=== PATIENT | female | born 1960 | race Caucasian/White ===

== ENCOUNTER 2017-10-24 19:20 | Inpatient (IN) ==
[2017-10-24] MEDS ORDERED: Cefepime HCl 2,000 MG in Water for inj. (sterile) 20 ML 20 ML IVP ONE (19:49)
[2017-10-24] MEDS ORDERED: 0.9 % Sodium Chloride 1,000 ML IVC ONE ×2 (19:49→22:57)
[2017-10-24] MEDS ORDERED: Isovue-370 500 ML INFUS..BTL IV ONE (20:01)
--- NOTE | 2017-10-24 20:04 | Emergency Department Note ---
Disposition Clinical Impression: Diabetic foot ulcer Qualifiers: Diabetic foot ulcer location: toe Diabetes mellitus type: type 2 Laterality: right Non-pressure ulcer stage: unspecified non-pressure ulcer stage Qualified Code(s): E11.621 - Type 2 diabetes mellitus with foot ulcer; L97.519 - Non- pressure chronic ulcer of other part of right foot with unspecified severity Disposition: Admitted As Inpatient Referrals: NONE,PCP [Primary Care Provider] - General Adult HPI - General Chief complaint: ED Extremity Problem,Nontraumatic Stated complaint: RIGHT FOOT DIABETIC ULCER Time Seen by Provider: 10/24/17 19:27 Source: patient - History of Present Illness Pain Scale: 7 - Related Data Home Medications Medication Instructions Recorded Confirmed Bupropion HCl [Wellbutrin Xl] 300 mg PO DAILY 11/13/15 10/28/16 Citalopram [CeleXA] 20 mg PO DAILY 11/13/15 10/28/16 Empagliflozin/Linagliptin 1 tab PO DAILY 11/13/15 10/28/16 [Glyxambi 25 mg-5 mg Tablet] Gabapentin [Neurontin] 100 mg PO TID 11/13/15 10/28/16 Levothyroxine [Synthroid] 100 mcg PO DAILY 11/13/15 10/28/16 Metoprolol [Lopressor] 25 mg PO BID 11/13/15 10/28/16 glyBURIDE [GlyBURIDE] 10 mg PO BID 11/13/15 10/28/16 Cholecalciferol (D-3) [Vitamin D] 1,000 unit PO DAILY 04/29/16 10/28/16 BuPROPion XL (24 HR) [Wellbutrin 150 mg PO 2000 07/09/16 10/28/16 Xl] Metformin HCl [Glucophage] 1,000 mg PO BID 07/09/16 10/28/16 Previous Rx's Medication Instructions Recorded clonazePAM [Klonopin] 0.5 mg PO BID PRN #30 tablet 07/10/16 Oxycodone HCl/Acetaminophen 1 each PO Q6HR #28 tablet 10/28/16 [Percocet 10-325 mg Tablet] Rivaroxaban [Xarelto] 10 mg PO DAILY #21 tablet 10/28/16 Allergies Allergy/AdvReac Type Severity Reaction Status Date / Time Penicillins [PCN] Allergy Rash Verified 10/28/16 06:56 Sulfa (Sulfonamide Allergy Rash Verified 10/28/16 06:56 Antibiotics) Past Medical History - Past Medical History Medical history: Reports: diabetes, hypertension, thyroid disease Surgical history: Reports: hysterectomy, orthopedic, other, sinus surgery, other Psychiatric history: Reports: anxiety, depression - Social History Smoking Status: Never smoker Smokeless Tobacco Status: No Alcohol use: Reports: none Drug use: Reports: none Physical Exam - General General appearance: alert, in no apparent distress Course Vital Signs Temperature 99.1 F 10/24/17 19:30 Pulse Rate 100 10/24/17 19:30 Respiratory Rate 20 10/24/17 19:30 Blood Pressure 146/85 10/24/17 19:30 O2 Sat by Pulse Oximetry 96 10/24/17 19:30 Temperature 99.1 F 10/24/17 19:30 Pulse Rate 100 10/24/17 19:30 Respiratory Rate 20 10/24/17 19:30 Blood Pressure 146/85 10/24/17 19:30 O2 Sat by Pulse Oximetry 96 10/24/17 19:30 Oxygen Delivery Oxygen Delivery Room Air Attestation Statement - Attestation Attestation: I examined this patient and my medical decision-making was reviewed with the Resident Physician. I agree with the documented findings, disposition and treatment plan as described except to the extent set forth below. 57 year old female presnet to the eD with complaints of right diabetic foot uler and that she is a patient of Dr. Christiansen and since it has been changing in character and becoming more necrotic and red and she sent the pictures to Dr. Christiansen today and he reccomended to come straight to the ED and has called his partner Dr. Ornelas to inform him that she will be admitted and may need surgical intervention. We have started workup and will obtain a CT and start on broad coverage ABX with consult to podiatry and admission to medicine
[2017-10-24 20:26] LABS: Basophils % 0.4 %; Eosinophils % 1.3 %; Hemoglobin 10.4 g/dL (11.5-15.4); Immature Granulocytes % 0.9 % (0-4); Lymphocytes # 0.4 K/mcL (0.6-4.6); Lymphocytes % 17.9 %; Mean Corpuscular HGB Conc 31.5 g/dL (31.6-35.5); Mean Corpuscular Hemoglobin 30.1 pg (28.0-33.3); Mean Corpuscular Volume 95.7 fL (83.0-100.0); Mean Platelet Volume 9.8 fL (9.4-12.4); Monocytes # 0.3 K/mcL (0.0-1.3); Monocytes % 12.8 %; Neutrophils # 1.6 K/mcL (1.6-8.9); Platelet Count 182 K/mcL (140-400); Red Blood Count 3.45 M/mcL (3.82-4.97); Red Cell Distribution Width 15.6 % (11.5-14.5); Segmented Neutrophils % 66.7 %
[2017-10-24 20:51] LABS: BUN/Creatinine Ratio 14 (6-26); Blood Urea Nitrogen 9 mg/dL (6-20); Calcium 8.8 mg/dL (8.6-10.3); Carbon Dioxide 22 mEq/L (23-29); Chloride 101 mEq/L (98-107); Glucose 87 mg/dL (70-105); Magnesium 1.9 mg/dL (1.6-2.6); Osmolality,Calculated 270 (280-300); Phosphorous 3.7 mg/dL (2.7-4.5); Potassium 5.8 mEq/L (3.5-5.1); Sodium 131 mEq/L (136-145); Troponin I < 0.03 ng/mL (< 0.04); eGFR For African Americans > 60 (> 60); eGFR For Non-African Americans > 60 (> 60)
--- NOTE | 2017-10-24 21:25 | Emergency Department Note ---
Disposition Clinical Impression: Lactic acidosis, Hyperkalemia Diabetic foot ulcer Qualifiers: Diabetic foot ulcer location: toe Diabetes mellitus type: type 2 Laterality: right Non-pressure ulcer stage: unspecified non-pressure ulcer stage Qualified Code(s): E11.621 - Type 2 diabetes mellitus with foot ulcer; L97.519 - Non- pressure chronic ulcer of other part of right foot with unspecified severity Anemia Qualifiers: Anemia type: unspecified type Qualified Code(s): D64.9 - Anemia, unspecified Osteomyelitis Qualifiers: Osteomyelitis type: unspecified type Osteomyelitis location: foot Laterality: right Qualified Code(s): M86.9 - Osteomyelitis, unspecified Disposition: Admitted As Inpatient Condition: Fair Referrals: NONE,PCP [Primary Care Provider] - Forms: ED Satisfaction Letter Time of Disposition: 22:16 Extremity Problem HPI - General Chief complaint: ED Extremity Problem,Nontraumatic Stated complaint: RIGHT FOOT DIABETIC ULCER Time Seen by Provider: 10/24/17 19:27 Source: patient Mode of arrival: ambulatory Limitations: no limitations Nursing Notes Reviewed: Yes Vital Signs Reviewed: Yes - History of Present Illness HPI Narrative: Patient is a 57-year-old female who presents to [facility] ED with a chief complaint of right foot ulcer that is worsening. Patient has a history of diabetes and has prior issues with her foot ulcers. She is being seen by our podiatry clinic and followed by Dr. Christiansen. States he last saw it a few days ago and at that time, had been okay. She bumped it on something the day before so then I started looking worse over the last several days. He he had her on a 10 day course of Levaquin. However it started looking worse again and she some pictures of it to him today and he told her to come to the emergency department. Denies any nausea, vomiting, fever or chills. Admits to some chest discomfort but no difficulty breathing. States she feels that that might be secondary to her being so anxious about her foot. 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 Denies : shortness of breath, abdominal pain, fever - Related Data Home Medications Medication Instructions Recorded Confirmed Bupropion HCl [Wellbutrin Xl] 300 mg PO DAILY 11/13/15 10/28/16 Citalopram [CeleXA] 20 mg PO DAILY 11/13/15 10/28/16 Empagliflozin/Linagliptin 1 tab PO DAILY 11/13/15 10/28/16 [Glyxambi 25 mg-5 mg Tablet] Gabapentin [Neurontin] 100 mg PO TID 11/13/15 10/28/16 Levothyroxine [Synthroid] 100 mcg PO DAILY 11/13/15 10/28/16 Metoprolol [Lopressor] 25 mg PO BID 11/13/15 10/28/16 glyBURIDE [GlyBURIDE] 10 mg PO BID 11/13/15 10/28/16 Cholecalciferol (D-3) [Vitamin D] 1,000 unit PO DAILY 04/29/16 10/28/16 BuPROPion XL (24 HR) [Wellbutrin 150 mg PO 2000 07/09/16 10/28/16 Xl] Metformin HCl [Glucophage] 1,000 mg PO BID 07/09/16 10/28/16 Previous Rx's Medication Instructions Recorded clonazePAM [Klonopin] 0.5 mg PO BID PRN #30 tablet 07/10/16 Oxycodone HCl/Acetaminophen 1 each PO Q6HR #28 tablet 10/28/16 [Percocet 10-325 mg Tablet] Rivaroxaban [Xarelto] 10 mg PO DAILY #21 tablet 10/28/16 Allergies Allergy/AdvReac Type Severity Reaction Status Date / Time Penicillins [PCN] Allergy Rash Verified 10/28/16 06:56 Sulfa (Sulfonamide Allergy Rash Verified 10/28/16 06:56 Antibiotics) All systems ED: reviewed and negative except as stated. Past Medical History - Past Medical History Attestation: Yes The following information was validated with the patient. Source: patient Medical history: Reports: diabetes, hypertension, thyroid disease Surgical history: Reports: hysterectomy, orthopedic, other, sinus surgery, other Psychiatric history: Reports: anxiety, depression - Social History Smoking Status: Never smoker Smokeless Tobacco Status: No Alcohol use: Reports: none Drug use: Reports: none Physical Exam - General Limitations: no limitations General appearance: alert, in no apparent distress - Head Head exam: atraumatic, normocephalic, normal inspection - Eye Eye exam: Present: normal appearance, EOMI - ENT ENT exam: normal exam, normal oropharynx, mucous membranes moist - Neck Neck exam: Present: normal inspection, full ROM, trachea midline - Chest Chest inspection: Present: normal inspection, symmetric chest wall rise - Respiratory Respiratory exam: Present: normal lung sounds bilaterally - Cardiovascular Cardiovascular exam: Present: normal rhythm, tachycardia - Abdominal Exam Abdominal exam: Present: soft, Non-Tender. Absent: tenderness, distention, guarding, rebound, rigidity - Expanded Lower Extremity Exam Foot/toe exam: Present: swelling, erythema, other (Necrotic appearing distal right foot with surrounding erythema) - Neurological Exam Neurological exam: Present: alert, oriented X3 - Psychiatric Psychiatric exam: Present: normal affect, normal mood - Skin Skin exam: Present: warm, dry, intact, normal color Course Course Narrative: Patient seen and examined. Problem with right diabetic foot ulcer. Appears necrotic now. We will get a sepsis workup as well as CT of the foot with IV contrast. We will get blood cultures as well as start antibiotics vancomycin and cefepime. - Reevaluation(s) Reevaluation #1: Labwork shows a low white count, which patient states that she has had this chronically and has been evaluated for it in the past. Also shows some mild anemia as well as mild hyponatremia and hyperkalemia. Potassium is 5.8. No EKG changes with peaked T waves. We will give a dose of Kayexalate to help lower the potassium levels. I discussed with the automatic profile shaper operator Dr. Ornelas who came to the emergency department to evaluate the patient. States he will schedule her for surgery at 8 AM in the morning. Will admit for the necrotic foot ulcer with osteomyelitis , I discussed with the hospitalist Dr. Everett who has accepted patient for admission. Would also like clindamycin and Flagyl ordered for double anaerobic coverage. Time: 22:13 Vital Signs Temperature 99.1 F 10/24/17 19:30 Pulse Rate 100 10/24/17 19:30 Respiratory Rate 20 10/24/17 19:30 Blood Pressure 146/85 10/24/17 19:30 O2 Sat by Pulse Oximetry 96 10/24/17 19:30 Temperature 99.1 F 10/24/17 19:30 Pulse Rate 100 10/24/17 19:30 Respiratory Rate 20 10/24/17 19:30 Blood Pressure 146/85 10/24/17 19:30 O2 Sat by Pulse Oximetry 96 10/24/17 19:30 Oxygen Delivery Oxygen Delivery Room Air Extremity Problem, Nontraumati - Medical Records Medical records reviewed: Yes I reviewed the patient's medical records. - Lab Data Lab results reviewed: Yes I reviewed the patient's lab results. Result diagrams: 10/24/17 20:15 10/24/17 20:15 Lab Results 10/24/17 10/24/17 10/24/17 Range/Units 20:15 20:15 20:15 WBC 2.4 L (4.3-11.1) K/mcL RBC 3.45 L (3.82-4.97) M/mcL Hgb 10.4 L (11.5-15.4) g/dL Hct 33.0 L (35.3-44.9) % MCV 95.7 (83.0-100.0) fL MCH 30.1 (28.0-33.3) pg MCHC 31.5 L (31.6-35.5) g/dL RDW 15.6 H (11.5-14.5) % Plt Count 182 (140-400) K/mcL MPV 9.8 (9.4-12.4) fL Immature Gran % 0.9 (0-4) % Seg Neutrophils % 66.7 % Lymphocytes % 17.9 % Monocytes % 12.8 % Eosinophils % 1.3 % Basophils % 0.4 % Neutrophils # 1.6 (1.6-8.9) K/mcL Lymphocytes # 0.4 L (0.6-4.6) K/mcL Monocytes # 0.3 (0.0-1.3) K/mcL Eosinophils # 0.0 (0.0-0.6) K/mcL Basophils # 0.0 (0.0-0.2) K/mcL ESR (0-15) mm/hr Sodium 131 L (136-145) mEq/L Potassium 5.8 H (3.5-5.1) mEq/L Chloride 101 (98-107) mEq/L Carbon Dioxide 22 L (23-29) mEq/L BUN 9 (6-20) mg/dL Creatinine 0.63 (0.60-1.20) mg/dL Est GFR ( Amer) > 60 (> 60) Est GFR (Non-Af Amer) > 60 (> 60) BUN/Creatinine Ratio 14 (6-26) Glucose 87 (70-105) mg/dL Calculated Osmolality 270 L (280-300) Lactic Acid 2.9 H (0.5-2.2) mmol/L Calcium 8.8 (8.6-10.3) mg/dL Phosphorus 3.7 (2.7-4.5) mg/dL Magnesium 1.9 (1.6-2.6) mg/dL Troponin I < 0.03 (< 0.04) ng/mL 10/24/17 Range/Units 20:30 WBC (4.3-11.1) K/mcL RBC (3.82-4.97) M/mcL Hgb (11.5-15.4) g/dL Hct (35.3-44.9) % MCV (83.0-100.0) fL MCH (28.0-33.3) pg MCHC (31.6-35.5) g/dL RDW (11.5-14.5) % Plt Count (140-400) K/mcL MPV (9.4-12.4) fL Immature Gran % (0-4) % Seg Neutrophils % % Lymphocytes % % Monocytes % % Eosinophils % % Basophils % % Neutrophils # (1.6-8.9) K/mcL Lymphocytes # (0.6-4.6) K/mcL Monocytes # (0.0-1.3) K/mcL Eosinophils # (0.0-0.6) K/mcL Basophils # (0.0-0.2) K/mcL ESR >= 130 H (0-15) mm/hr Sodium (136-145) mEq/L Potassium (3.5-5.1) mEq/L Chloride (98-107) mEq/L Carbon Dioxide (23-29) mEq/L BUN (6-20) mg/dL Creatinine (0.60-1.20) mg/dL Est GFR ( Amer) (> 60) Est GFR (Non-Af Amer) (> 60) BUN/Creatinine Ratio (6-26) Glucose (70-105) mg/dL Calculated Osmolality (280-300) Lactic Acid (0.5-2.2) mmol/L Calcium (8.6-10.3) mg/dL Phosphorus (2.7-4.5) mg/dL Magnesium (1.6-2.6) mg/dL Troponin I (< 0.04) ng/mL - Radiology Data Radiology results reviewed: Yes I reviewed the patient's radiology results. Foot CT 10/24/17 20:01 IMPRESSION: Large soft tissue ulceration along the medial and plantar aspect of the foot involving the 1st digit and 1st metatarsal. Extensive soft tissue gas with sinus tract extending to the bone of the 1st digit and 1st metatarsal head as well as extending to the flexor hallucis longus tendon. Soft tissue gas noted within the bone of the distal digit great toe. Findings consistent with osteomyelitis. Although no bony destruction of the proximal phalanx 1st digit or 1st metatarsal, high concern for osteomyelitis given degree of soft tissue ulceration and penetrating gas. Small amount of complex fluid surrounds the extensor tendon 1st digit. D/ / Alannah Villagomez MD / Alannah Villagomez MD Interpreting Provider: Alannah Villagomez MD Chest X-Ray 10/24/17 21:34 IMPRESSION: Mild bibasilar atelectasis. D/ / Alannah Villagomez MD / Alannah Villagomez MD Interpreting Provider: Alannah Villagomez MD - EKG Data EKG attestation: Yes I reviewed and interpreted this EKG. EKG results narrative: EKG done at 2008 shows sinus tachycardia with a rate of [address] elevation or depression. Normal axis. No peaked T waves.
[2017-10-24] MEDS ORDERED: Clindamycin 900 MG/50 ML 900 MG/50 ML IV.SOLN IVPB ONE (21:42)
[2017-10-24] MEDS ORDERED: MetroNIDAZOLE 500 MG/100 ML 500 MG/100 ML BAG IVPB ONE (21:42)
[2017-10-24 22:01] LABS: C-Reactive Protein 182 mg/L (Less than 10)
[2017-10-24] MEDS ORDERED: Naloxone 0.4 MG/ML INJ IVP PRN (22:57)
[2017-10-24] MEDS ORDERED: D5% in Water 1,000 ML IVC PRN (23:01)
[2017-10-24] MEDS ORDERED: Dextrose Gel 15 GM/37.5 ML TUBE PO PRN ×2 (23:01)
[2017-10-24] MEDS ORDERED: *HR* Dextrose 50 % in Water (Syg) 50 ML SYRINGE IVP PRN (23:01)
--- NOTE | 2017-10-24 23:11 | Internal Med History&Physical ---
Date of Encounter: 10/24/17 Time of Encounter: 21:00 Internal Medicine - H&P: HPI Chief complaint: Right foot infection Admitted From: Home Plans for Post Hospital Care: Home History of present illness: Ms. Walker is a 57 year old female present to ER for right foot infection. Past medical history is significant for diabetes with neuropathy, hypothyroidism , panic attack on metoprolol Patient said she had a chronic right foot diabetic ulcer. The infection is getting worse since 11 days ago. Patient has seen podiatry as outpatient and was prescribed by mouth Levaquin. Patient said after and about treatment, the infection is getting better. However, after 7 days of antibiotic course, antibiotic was discontinued and the infection is getting worse again. Patient complaining of mild dizziness, nausea but no vomiting. Patient denies fever or chills. Patient denies chest pain or shortness of breath. In the emergency room, podiatry consult Dr. Ornelas saw patient and the plan for surgery of debridement tomorrow morning. Past Med Surg Social Fam HX - Past Medical History Medical history: diabetes, hypertension, thyroid disease Psychiatric history: anxiety, depression - Past Surgical History Surgical History: hysterectomy, orthopedic, other, sinus surgery, other - Social History Smoking Status: Never smoker Smokeless Tobacco Status: No Alcohol use: none Drug use: none - Family History Mother Family Member Ethnicity: Non- Living Status: Hx Family Cardiac Disorders: No Hx Family Respiratory Disorders: No Hx Family Cancer: Yes Hx Family GI Disorders: No Hx Family Endocrine Disorder: Yes Hx Family Neuromuscular Disorders: Yes Hx Family Neurologic Disorders: No Hx Family HEENT Disorders: No Hx Family Autoimmune Disorders: No Internal Medicine - H&P: Meds Bupropion HCl [Wellbutrin Xl] 300 mg PO DAILY 11/13/15 [History] Citalopram [CeleXA] 20 mg PO DAILY 11/13/15 [History] Empagliflozin/Linagliptin [Glyxambi 25 mg-5 mg Tablet] 1 tab PO DAILY 11/13/15 [ History] Gabapentin [Neurontin] 100 mg PO TID 11/13/15 [History] Levothyroxine [Synthroid] 100 mcg PO DAILY 11/13/15 [History] Metoprolol [Lopressor] 25 mg PO BID 11/13/15 [History] glyBURIDE [GlyBURIDE] 10 mg PO BID 06/15/16 [History] Cholecalciferol (D-3) [Vitamin D] 1,000 unit PO DAILY 04/29/16 [History] BuPROPion XL (24 HR) [Wellbutrin Xl] 150 mg PO 2000 07/09/16 [History] Metformin HCl [Glucophage] 1,000 mg PO BID 07/09/16 [History] clonazePAM [Klonopin] 0.5 mg PO BID PRN #30 tablet 07/10/16 [Rx] Oxycodone HCl/Acetaminophen [Percocet 10-325 mg Tablet] 1 each PO Q6HR #28 tablet 10/28/16 [Rx] Rivaroxaban [Xarelto] 10 mg PO DAILY #21 tablet 10/28/16 [Rx] 3 Allergy/AdvReac Type Severity Reaction Status Date / Time Penicillins [PCN] Allergy Rash Verified 10/28/16 06:56 Sulfa (Sulfonamide Allergy Rash Verified 10/28/16 06:56 Antibiotics) All Systems PM: A 10-system review of systems was performed and is negative for pertinent findings except as documented above in the HPI. - Constitutional Vitals: Temp Pulse Resp BP Pulse Ox 99.1 F 100 22 160/79 96 10/24/17 19:30 10/24/17 19:30 10/24/17 22:30 10/24/17 22:30 10/24/17 19:30 General appearance: Present: A&O X 3, no acute distress, answers questions appropriately - Head Head exam: Present: atraumatic, normocephalic - Eye Eye exam: Present: PERRL, conjuntiva pink, sclera anicteric Pupils: Present: PERRL - Neck Neck exam general surgery: Present: supple, trachea midline. Absent: lymphadenopathy - Respiratory Respiratory exam: Present: CTAB. Absent: accessory muscle use, rales, rhonchi, wheezes - Cardiovascular Cardiovascular exam: Present: RRR, +S1, +S2, tachycardia. Absent: diastolic murmur, gallop, rubs, systolic murmur - GI/Abdominal GI/Abdominal exam: Present: normal bowel sounds, soft, no peritoneal signs. Absent: distended, tenderness - Extremities Exam Extremities exam: Present: warm, radial pulses palpable and symmetrical. Absent : calf tenderness, cyanotic, pedal edema Additional comments: Right foot infection around right toe, with surrounding redness/swelling. - Neurological Exam Neurological exam: Present: CN II-XII intact, oriented X3, no focal deficits. Absent: pronater drift, facial droop, speech deficit - Skin Skin exam: Present: dry, intact Internal Med - H&P Results - Labs CBC & Chem 7: 10/24/17 20:15 10/24/17 20:15 - Assessment and plan (1) Diabetic foot ulcer Current Visit: Yes Status: Acute Assessment and plan: Patient has diabetic foot infection, failed outpatient treatment. CT foot has been done, shows gas and osteomyelitis. Podiatry saw patient, plan for surgery tomorrow morning. - Patient to meet sepsis criteria, IV fluid started. - Place patient on clindamycin, cefepime, and Flagyl IV - Nothing by mouth from midnight - Patient has no history of CAD, EKG unremarkable, acceptable risk for this urgent surgery. Qualifiers: Diabetic foot ulcer location: toe Diabetes mellitus type: type 2 Laterality: right Non-pressure ulcer stage: unspecified non-pressure ulcer stage Qualified Code(s): E11.621 - Type 2 diabetes mellitus with foot ulcer; L97.519 - Non-pressure chronic ulcer of other part of right foot with unspecified severity (2) Hyperkalemia Current Visit: Yes Status: Acute Assessment and plan: Mild hyperkalemia, potassium level is excepted to get down after IV fluid (3) Osteomyelitis Current Visit: Yes Status: Acute Assessment and plan: Management as above Qualifiers: Osteomyelitis type: unspecified type Osteomyelitis location: foot Laterality: right Qualified Code(s): M86.9 - Osteomyelitis, unspecified (4) Diabetes mellitus Current Visit: No Status: Chronic Assessment and plan: Place patient on sliding scale insulin coverage Qualifiers: Diabetes mellitus type: type 2 Diabetes mellitus ad terminal makeup operator insulin use: without ad terminal makeup operator use Diabetes mellitus complication status: with skin complications Diabetes mellitus complication detail: with foot ulcer Qualified Code(s): E11.621 - Type 2 diabetes mellitus with foot ulcer; L97.509 - Non-pressure chronic ulcer of other part of unspecified foot with unspecified severity (5) Hypertension Current Visit: No Status: Chronic Assessment and plan: Continue home medications Qualifiers: Hypertension type: essential hypertension Qualified Code(s): I10 - Essential (primary) hypertension (6) Hypothyroidism Current Visit: No Status: Chronic Assessment and plan: Continue home medications Qualifiers: Hypothyroidism type: acquired Qualified Code(s): E03.9 - Hypothyroidism, unspecified (7) Sepsis Current Visit: Yes Status: Acute Assessment and plan: Patient has leukocytopenia and tachycardia with foot infection. Consider sepsis - Early IV fluid resuscitation started from ER - Mild elevated lactate acid, probably due to patient takes metformin at home, will repeat lactic acid after 6 hours. - Continue antibiotic treatment as above. - Follow-up blood culture Qualifiers: Sepsis type: sepsis due to unspecified organism Qualified Code(s): A41.9 - Sepsis, unspecified organism - Time Spent With Patient Total time spent is greater than 50% in coordination of care (as documented) at patient's floor/unit and/or counseling patient: 40 minutes Greater than 35 minutes
[2017-10-24] MEDS: 0.9 % Sodium Chloride 1,000 ML IVC SCH (23:43)
[2017-10-25] MEDS: Ondansetron 4 MG/2 ML VIAL IVP PRN (00:33)
[2017-10-25 00:50] LABS: Basophils % 0.5 %; Eosinophils % 1.4 %; Hematocrit 31.6 % (35.3-44.9); Hemoglobin 9.9 g/dL (11.5-15.4); Immature Granulocytes % 0.9 % (0-4); Lymphocytes # 0.5 K/mcL (0.6-4.6); Mean Corpuscular HGB Conc 31.3 g/dL (31.6-35.5); Mean Corpuscular Hemoglobin 29.8 pg (28.0-33.3); Mean Corpuscular Volume 95.2 fL (83.0-100.0); Mean Platelet Volume 9.7 fL (9.4-12.4); Monocytes # 0.2 K/mcL (0.0-1.3); Monocytes % 9.1 %; Neutrophils # 1.5 K/mcL (1.6-8.9); Nucleated Red Blood Cells 1.4 /100 WBC (0); Platelet Count 200 K/mcL (140-400); Red Blood Count 3.32 M/mcL (3.82-4.97); Red Cell Distribution Width 15.4 % (11.5-14.5); Segmented Neutrophils % 67.1 %
[2017-10-25 00:59] LABS: INR 1.3; Prothrombin Time 14.5 Seconds (9.4-12.1)
[2017-10-25 01:28] LABS: BUN/Creatinine Ratio 12 (6-26); Blood Urea Nitrogen 8 mg/dL (6-20); Calcium 8.4 mg/dL (8.6-10.3); Carbon Dioxide 23 mEq/L (23-29); Chloride 104 mEq/L (98-107); Glucose 104 mg/dL (70-105); Magnesium 1.5 mg/dL (1.6-2.6); Osmolality,Calculated 277 (280-300); Potassium 3.3 mEq/L (3.5-5.1); Sodium 134 mEq/L (136-145); eGFR For African Americans > 60 (> 60); eGFR For Non-African Americans > 60 (> 60)
[2017-10-25] MEDS: Cefepime HCl 2,000 MG in Water for inj. (sterile) 20 ML 20 ML IVP SCH ×4 (05:53→23:16)
[2017-10-25] MEDS: MetroNIDAZOLE 500 MG/100 ML 500 MG/100 ML BAG IVPB SCH ×4 (05:54→23:17)
--- NOTE | 2017-10-25 07:18 | Anesthesia Evaluation PreOp ---
Date of Encounter: 10/25/17 Time of Encounter: 07:16 - Past History Planned Operation: I & D, Partial Amputation Right Big Toe Cardiac History: HTN, Hyperlipidemia Pulmonary History: Denies Any Significant HX BUSBOY History: Denies Any Significant HX Other Medical History: Diabetes Type II, Thyroid, Other (anxiety/depression) Anesthesia History: No Prior Anesthetic Complications, Past Anesthesia Alcohol Use: none Drug use: none Medications and Allergies Bupropion HCl [Wellbutrin Xl] 300 mg PO DAILY 11/13/15 [History] Citalopram [CeleXA] 20 mg PO DAILY 11/13/15 [History] Empagliflozin/Linagliptin [Glyxambi 25 mg-5 mg Tablet] 1 tab PO DAILY 11/13/15 [ History] Gabapentin [Neurontin] 100 mg PO TID 11/13/15 [History] Levothyroxine [Synthroid] 100 mcg PO DAILY 11/13/15 [History] Metoprolol [Lopressor] 25 mg PO BID 11/13/15 [History] glyBURIDE [GlyBURIDE] 10 mg PO BID 11/13/15 [History] Cholecalciferol (D-3) [Vitamin D] 1,000 unit PO DAILY 04/29/16 [History] BuPROPion XL (24 HR) [Wellbutrin Xl] 150 mg PO 2000 07/09/16 [History] Metformin HCl [Glucophage] 1,000 mg PO BID 07/09/16 [History] clonazePAM [Klonopin] 0.5 mg PO BID PRN #30 tablet 07/10/16 [Rx] Oxycodone HCl/Acetaminophen [Percocet 10-325 mg Tablet] 1 each PO Q6HR #28 tablet 10/28/16 [Rx] Rivaroxaban [Xarelto] 10 mg PO DAILY #21 tablet 10/28/16 [Rx] 3 Allergy/AdvReac Type Severity Reaction Status Date / Time Penicillins [PCN] Allergy Rash Verified 10/28/16 06:56 Sulfa (Sulfonamide Allergy Rash Verified 10/28/16 06:56 Antibiotics) - Meds/Allergy Pre-op Review Medications Reviewed: Yes Allergies Reviewed: Yes Beta Blockers on Current Med List: Yes If Beta Blockers taken, Date/Time (Last Dose taken): 10/24/2017 at 1500 Anesthesia Results - Labs 10/25/17 00:41 10/25/17 00:41 - Imaging EKG: report reviewed (04/29/2016 SINUS TACHYCARDIA POSSIBLE OLD INFERIOR MYOCARDIAL INFARCTION LOW QRS VOLTAGE IN PRECORDIAL LEADS) Anesthesia Exam Vital Signs/O2 Sat/Glucose, Most Recent Temp Pulse Resp BP Pulse Ox 98.3 F 93 14 123/67 94 10/25/17 06:55 10/25/17 06:55 10/25/17 06:55 10/25/17 06:55 10/25/17 06:55 Blood Glucose* 125 Height: 5'4''/1.63m Weight: 207 lbs/94 kg NPO (# of Hours): 8 Pain Scale: 0 Pain Scale Used: Numeric (1 - 10) - HEENT Pupil (Motor): EOMI Mallampati: III Teeth: Normal Oral Opening: Greater than 3 - BUSBOY LOC: Oriented BUSBOY Motor: Normal RUE, Normal LUE, Normal RLE, Normal LLE, Normal Face BUSBOY Sensory: Normal: RUE, LUE, Face, Deficit: RLE, LLE - Cardiac Rhythm: Regular Murmur: None - Pulmonary Breath Sounds: bilateral Clear Respiratory Effort: Symmetrical Anesthesia Assess/Plan ASA Score: 3 Modified Allan Scale for Level of Consciousness: Cooperative, oriented, and tranquil Anesthetic Plan: General, MAC Monitoring Plan: Standard Monitors Recovery Plan: PACU
[2017-10-25] MEDS ORDERED: Bupivacaine/Clonidine Syringe 1 EACH SYRINGE ONE (07:24)
--- NOTE | 2017-10-25 07:31 | Podiatry Consult Note ---
Date of Encounter: 10/24/17 Time of Encounter: 23:29 Assessment and Plan (1) Foot ulcer Current visit: No Status: Acute The patient was instructed that she needs debridement as soon as possible. Patient was instructed that she needs to be nothing by mouth prior to the surgery. Patient was instructed that we will start her on antibiotics immediately and then arrange preoperative tests to make sure that she is stable for the emergent surgery. Patient will also likely need additional follow-up surgeries. The patient was instructed that at this time with the open wounds in the area of the gas, and will allow some of the infection to drain but that we need to be urgent with how we will pursue and we will likely pursue surgical intervention within the next few hours. The surgery discussed was incision and drainage of the right foot with likely bone biopsy and resection of bone and amputation of necrotic portions of her foot. The patient was instructed that this will likely result in a transmetatarsal amputation. The patient was understanding and understands the risks and complications with the surgery.Patient was informed of the risks and complications of surgery. These may include but are not limited to the following; nerve damage, numbness, tingling, RSD/CRPS, loss of motor function, loss of toe, loss of limb, loss of life, ischemia, wound healing issues, infection, scarring, keloid formation, continued pain, arthritis, non-union, mal-union, prominent hardware, displaced hardware, reaction to hardware, the need to remove hardware, bruising, continued limp, the need for future surgery, over correction, under correction, chronic swelling, the need for physical therapy, stiffness of joints, ulceration , slow healing, wound dehiscence, reaction to implant, reaction to sutures. The patient was informed of the possible conservative treatments available which may include but are not limited to the following: Orthotics, bracing, non -weight bearing, physical therapy, padding, taping, steroid injections, NSAIDS, casting. The patient was given the option to seek a second opinion. It was explained that surgery is an art and not an exact science therefore results cannot be guaranteed. All the patients questions and concerns were addressed. Patient agrees to have the surgery despite the possible risks and complications. Absolutely no guarantees were given or implied. 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 History of Present Illness Chief complaint: Right foot infection HPI: Ms. Walker is a 57 year old female who relates that she has been treated outpatient with antibiotic therapy for a foot infection of the right foot. Patient relates that she notices symptoms getting worse the last few days. Patient relates that today she noticed a dark discoloration of her toe. Patient relates that she came in immediately. Patient relates that she has pain associated with that as well. Patient denies any other pedal complaints or recent injuries. Past Med Surg Social Fam HX - Past Medical History Medical history: diabetes, hypertension, thyroid disease Psychiatric history: anxiety, depression - Past Surgical History Surgical History: hysterectomy, orthopedic, other, sinus surgery, other - Social History Smoking Status: Never smoker Smokeless Tobacco Status: No Alcohol use: none Drug use: none - Family History Mother Family Member Ethnicity: Non- Living Status: Hx Family Cardiac Disorders: No Hx Family Respiratory Disorders: No Hx Family Cancer: Yes Hx Family GI Disorders: No Hx Family Endocrine Disorder: Yes Hx Family Neuromuscular Disorders: Yes Hx Family Neurologic Disorders: No Hx Family HEENT Disorders: No Hx Family Autoimmune Disorders: No Medications and Allergies Bupropion HCl [Wellbutrin Xl] 300 mg PO DAILY 11/13/15 [History] Citalopram [CeleXA] 20 mg PO DAILY 11/13/15 [History] Empagliflozin/Linagliptin [Glyxambi 25 mg-5 mg Tablet] 1 tab PO DAILY 11/13/15 [ History] Gabapentin [Neurontin] 100 mg PO TID 11/13/15 [History] Levothyroxine [Synthroid] 100 mcg PO DAILY 11/13/15 [History] Metoprolol [Lopressor] 25 mg PO BID 11/13/15 [History] glyBURIDE [GlyBURIDE] 10 mg PO BID 11/13/15 [History] Cholecalciferol (D-3) [Vitamin D] 1,000 unit PO DAILY 04/29/16 [History] BuPROPion XL (24 HR) [Wellbutrin Xl] 150 mg PO 2000 07/09/16 [History] Metformin HCl [Glucophage] 1,000 mg PO BID 07/09/16 [History] clonazePAM [Klonopin] 0.5 mg PO BID PRN #30 tablet 07/10/16 [Rx] Oxycodone HCl/Acetaminophen [Percocet 10-325 mg Tablet] 1 each PO Q6HR #28 tablet 10/28/16 [Rx] Rivaroxaban [Xarelto] 10 mg PO DAILY #21 tablet 10/28/16 [Rx] 3 Allergy/AdvReac Type Severity Reaction Status Date / Time Penicillins [PCN] Allergy Rash Verified 10/28/16 06:56 Sulfa (Sulfonamide Allergy Rash Verified 10/28/16 06:56 Antibiotics) All Systems Reviewed: The remainder of the systems were reviewed and are negative Physical Exam - Constitutional Vitals: Temp Pulse Resp BP Pulse Ox 98.3 F 93 14 123/67 94 10/25/17 06:55 10/25/17 06:55 10/25/17 06:55 10/25/17 06:55 10/25/17 06:55 Exam: The right foot which is the symptomatic foot is erythematous and has large ulcerations along the medial aspect. There is significant ischemic tissue on the right great toe extending proximally along the medial aspect of the foot. The CT scan demonstrates gas and the ischemia corresponds with the gas in the tissue. There is an open wound in the area of the gas extending along the region of the gas. Pedal pulses are palpable. Capillary fill time is sluggish to the digits 345 and decreased to digits 1 and 2 of the right foot. Sensation decreased consistent with peripheral neuropathy. Results - Labs Result Diagrams: 10/25/17 00:41 10/25/17 00:41 Labs: Abnormal lab results WBC 2.2 K/mcL (4.3-11.1) L 10/25/17 00:41 RBC 3.32 M/mcL (3.82-4.97) L 10/25/17 00:41 Hgb 9.9 g/dL (11.5-15.4) L 10/25/17 00:41 Hct 31.6 % (35.3-44.9) L 10/25/17 00:41 MCHC 31.3 g/dL (31.6-35.5) L 10/25/17 00:41 RDW 15.4 % (11.5-14.5) H 10/25/17 00:41 Neutrophils # 1.5 K/mcL (1.6-8.9) L 10/25/17 00:41 Lymphocytes # 0.5 K/mcL (0.6-4.6) L 10/25/17 00:41 Nucleated RBCs/100 WBC 1.4 /100 WBC (0) H 10/25/17 00:41 ESR >= 130 mm/hr (0-15) H 10/24/17 20:30 PT 14.5 Seconds (9.4-12.1) H 10/25/17 00:41 Sodium 134 mEq/L (136-145) L 10/25/17 00:41 Potassium 3.3 mEq/L (3.5-5.1) L D 10/25/17 00:41 POC Glucose 125 mg/dL (70-99) H 10/25/17 07:12 Calculated Osmolality 277 (280-300) L 10/25/17 00:41 Calcium 8.4 mg/dL (8.6-10.3) L 10/25/17 00:41 Magnesium 1.5 mg/dL (1.6-2.6) L 10/25/17 00:41 C-Reactive Protein 182 mg/L (Less than 10) H 10/24/17 20:15 H & H 10/25/17 Range/Units 00:41 Hgb 9.9 L (11.5-15.4) g/dL Hct 31.6 L (35.3-44.9) % All other labs normal. Consult Discharge Plan - Plan Referrals: NONE,PCP [Primary Care Provider] -
[2017-10-25] MEDS ORDERED: *HR* Midazolam HCl 2 MG/2 ML VIAL ONE (08:04)
[2017-10-25] MEDS ORDERED: Propofol 500 MG/50 ML INFUS..BTL ONE (08:05)
[2017-10-25] MEDS: Clindamycin 600 MG/50 ML 600 MG/50 ML IV.SOLN IVPB SCH ×4 (08:15→23:16)
[2017-10-25] MEDS: Insulin LISPRO 300 UNITS/3 ML VIAL SQ SCH ×4 (08:22→21:07)
[2017-10-25] MEDS: Lactobacillus 1 EACH CAP.SPRINK PO SCH (08:24)
--- NOTE | 2017-10-25 09:08 | Anesthesia Evaluation Post Op ---
Date of Encounter: 10/25/17 Time of Encounter: 09:07 - Vital Signs Vital Signs: 3 Vital Signs BP 153/87 Pulse 99 Resp 20 O2 Sat 98% - Lungs Lungs: Clear Ascult./Percussion - Airway Airway: Non-obstructed - Cardiovascular Regular Rate - Mental Status Mental Status: Alert & Oriented, Answers Appropriately - Pain Pain Scale: 0 Pain Scale used: Numeric (1 - 10) - Nausea Vomiting Nausea Vomiting: Not Present - Hydration Hydration: NPO, Has not voided - Discharge PostOp Status: Transfer Patient to floor
[2017-10-25] MEDS: 0.9 % Sodium Chloride 1,000 ML IVC SCH ×2 (09:48→17:27)
--- NOTE | 2017-10-25 11:04 | Operative Note ---
Date of procedure: 10/25/17 Pre-op diagnosis: Gas gangrene right foot Post-op diagnosis: same Procedure: Incision and drainage right foot with amputation of great toe and incision to bone cortex for osteomyelitis of the first metatarsal of the right foot. Anesthesia: MAC Surgeon: Luis Carlos Ornelas Was there an fitness assistant present: No Estimated blood loss (cc): 15 Specimen: Clearance fragment first metatarsal, great toe and distal first metatarsal, Condition: stable Disposition: PACU Procedure in Detail: The patient was administered IV antibiotics. The patient was transported to the operative room and placed on operating table. Following anesthesia the extremity was scrubbed prepped and draped in the usual aseptic fashion. A timeout was performed. The lower extremity was raised to 60 degrees for hemostasis and exsanguinated utilizing an Esmarch bandage. The pneumatic tourniquet was inflated. The leg was lowered to the table. An incision was made and deepened through subcutaneous tissue with care taken to identify and retract all vital neurovascular structures. As the incision was made it was noted that the great toe was completely necrotic. The necrotic skin was debrided and the skin which had gas was also debrided aggressively. The debridement consisted of the skin dorsally and plantarly along the great toe and first metatarsal. The skin debrided included tendon, fascia, epidermis , dermis, subcutaneous, fascia. After the large incision was made circumscribing the gas gangrene is tissue the great toe was amputated by circumferentially disarticulating the toe at the metatarsal phalangeal joint. After the toe was removed from the site the attention was directed to the first metatarsal. The first metatarsal was inspected and an incision was made to the bone cortex for osteomyelitis of the first metatarsal. Significant amounts of osteomyelitis were noted at the distal aspect of the first metatarsal and were curettaged. After significant curettage of osteomyelitis it was decided to incise the periosteum/bone cortex proximally and the entire distal first metatarsal was removed from the field and resected. Any other necrotic or nonviable tissue was also debrided. The site was irrigated with copious amounts of normal saline and packed with iodoform gauze packing. A wound VAC was not applied at this time but will be applied at a later time when there is less bleeding. The pneumatic tourniquet was deflated and a hyperemic response was noted to all digits. The patient tolerated the procedure and anesthesia well and was transported to the recovery room with vital signs stable and vascular status intact to both feet. Continue empiric antibiotics until cultures return. Packing will occur twice daily for the next 2-3 days until we reevaluate the site for possible additional washout. The patient will likely need multiple washouts and possibly a wound VAC within a few days. The patient will also likely need long-term IV antibiotics due to the severity of the infection. After consultation wound care we may consider transmetatarsal amputation depending on the viability of the wound edges. The patient will remain nonweightbearing.
[2017-10-25] MEDS: Ketorolac 30 MG/ML VIAL IVP PRN (14:19)
[2017-10-25] MEDS: *HR* Heparin 5,000 UNIT/ML VIAL SQ SCH (17:39)
[2017-10-25] MEDS: Acetaminophen 325 MG TABLET PO PRN (19:58)
--- NOTE | 2017-10-25 22:58 | Internal Med Progress Note ---
Date of Encounter: 10/25/17 Time of Encounter: 19:00 - Assessment and plan (1) Diabetic foot ulcer Current Visit: Yes Status: Acute Assessment and plan: She was taking glyburide and metformin at home. Will keep her on the Humalog sliding scale. Will keep her on diabetic diet.She underwent right foot surgery today. We are waiting for culture results. Her right great toe has been amputated. She also lost her distal portion of first metatarsal bone. Qualifiers: Diabetic foot ulcer location: toe Diabetes mellitus type: type 2 Laterality: right Non-pressure ulcer stage: unspecified non-pressure ulcer stage Qualified Code(s): E11.621 - Type 2 diabetes mellitus with foot ulcer; L97.519 - Non-pressure chronic ulcer of other part of right foot with unspecified severity (2) Osteomyelitis Current Visit: Yes Status: Acute Assessment and plan: We are waiting for culture results. See above. She gets IV fluids. She gets IV cefepime, I-V Clindamycin and I-V metronidazole. Qualifiers: Osteomyelitis type: unspecified type Osteomyelitis location: foot Laterality: right Qualified Code(s): M86.9 - Osteomyelitis, unspecified (3) T2DM (type 2 diabetes mellitus) Current Visit: Yes Status: Acute Assessment and plan: She was taking Glyburide and metformin at home. Will keep her on a diabetic diet. She will get prn Humalog. Qualifiers: Diabetes mellitus group home insulin use: without watermaster use Diabetes mellitus complication status: with circulatory complication Diabetes mellitus complication detail: with other circulatory complications Qualified Code(s): E11.59 - Type 2 diabetes mellitus with other circulatory complications (4) Acute hypokalemia Current Visit: Yes Status: Acute Assessment and plan: Will give for supplemental potassium chloride. (5) Hypomagnesemia Current Visit: Yes Status: Acute Assessment and plan: Will give her magnesium sulfate rider. Will repeat electrolytes in the morning. - Time Spent With Patient Total time spent is greater than 50% in coordination of care (as documented) at patient's floor/unit and/or counseling patient: 25 - 35 minutes - Subjective Interval history: The patient had the surgery on her right foot today. They removed her right great toe. They removed a portion of her first metatarsal bone. The remaining portion of that bone was debrided. Her pain seems to be under control. Denies chest pain. Denies difficulty breathing, coughing and wheezing. Denies abdominal pain, nausea and vomiting. Denies abdominal pain, nausea and vomiting. She makes fair amounts of urine. Denies urinary symptoms. - Constitutional Vitals: Temp Pulse Resp BP Pulse Ox 98.5 F 92 15 158/76 94 10/25/17 19:22 10/25/17 19:22 10/25/17 19:22 10/25/17 19:22 10/25/17 19:22 General appearance: Present: A&O X 3, no acute distress, answers questions appropriately - Respiratory Respiratory exam: Present: CTAB. Absent: accessory muscle use, rales, rhonchi, wheezes - Cardiovascular Cardiovascular exam: Present: RRR, +S1, +S2. Absent: diastolic murmur, gallop, rubs, systolic murmur - GI/Abdominal GI/Abdominal exam: Present: normal bowel sounds, soft, no peritoneal signs. Absent: distended, tenderness - Skin Skin exam: Present: dry, intact Additional comments: There is a surgical dressing in the area of right foot. Internal Medicine: Result - Labs CBC & Chem 7: 10/28/17 05:39 10/28/17 05:39 Labs: Short CBC 10/25/17 Range/Units 00:41 WBC 2.2 L (4.3-11.1) K/mcL Hgb 9.9 L (11.5-15.4) g/dL Hct 31.6 L (35.3-44.9) % Plt Count 200 (140-400) K/mcL Neutrophils # 1.5 L (1.6-8.9) K/mcL BMP 10/25/17 00:41 Sodium 134 L Potassium 3.3 L D Chloride 104 Carbon Dioxide 23 BUN 8 Creatinine 0.66 Glucose 104 Calcium 8.4 L - ABG Interpretation ABG results: PT/INR, D-dimer PT 14.5 Seconds (9.4-12.1) H 10/25/17 00:41 - VTE Documentation of Mechanical Device: Intermittent pneumatic compression device Consult Discharge Plan - Plan Referrals: NONE,PCP [Primary Care Provider] -
[2017-10-26] MEDS: 0.9 % Sodium Chloride 1,000 ML IVC SCH (05:26)
[2017-10-26] MEDS: *HR* Heparin 5,000 UNIT/ML VIAL SQ SCH ×2 (05:27→17:54)
[2017-10-26 05:48] LABS: Hematocrit 29.2 % (35.3-44.9); Hemoglobin 9.1 g/dL (11.5-15.4); Mean Corpuscular HGB Conc 31.2 g/dL (31.6-35.5); Mean Corpuscular Hemoglobin 29.8 pg (28.0-33.3); Mean Corpuscular Volume 95.7 fL (83.0-100.0); Mean Platelet Volume 9.4 fL (9.4-12.4); Platelet Count 208 K/mcL (140-400); Red Blood Count 3.05 M/mcL (3.82-4.97); Red Cell Distribution Width 15.4 % (11.5-14.5)
[2017-10-26 06:15] LABS: BUN/Creatinine Ratio 17 (6-26); Blood Urea Nitrogen 8 mg/dL (6-20); Calcium 8.2 mg/dL (8.6-10.3); Carbon Dioxide 25 mEq/L (23-29); Chloride 107 mEq/L (98-107); Glucose 136 mg/dL (70-105); Magnesium 2.3 mg/dL (1.6-2.6); Osmolality,Calculated 282 (280-300); Potassium 3.9 mEq/L (3.5-5.1); Sodium 136 mEq/L (136-145); eGFR For African Americans > 60 (> 60); eGFR For Non-African Americans > 60 (> 60)
[2017-10-26] MEDS: Cefepime HCl 2,000 MG in Water for inj. (sterile) 20 ML 20 ML IVP SCH ×2 (07:22→15:37)
[2017-10-26] MEDS: Lactobacillus 1 EACH CAP.SPRINK PO SCH (07:23)
[2017-10-26] MEDS: Clindamycin 600 MG/50 ML 600 MG/50 ML IV.SOLN IVPB SCH (07:24)
[2017-10-26] MEDS: Insulin LISPRO 300 UNITS/3 ML VIAL SQ SCH ×4 (07:30→21:35)
[2017-10-26] MEDS: MetroNIDAZOLE 500 MG/100 ML 500 MG/100 ML BAG IVPB SCH ×2 (08:33→15:38)
[2017-10-26] MEDS: Ondansetron 4 MG/2 ML VIAL IVP PRN ×2 (09:16→19:54)
[2017-10-26] MEDS: clonazePAM 0.5 MG TABLET PO PRN (12:41)
[2017-10-26] MEDS: BuPROPion XL (24 HR) 150 MG TABLET PO SCH ×2 (12:41→17:55)
[2017-10-26] MEDS: Gabapentin 100 MG CAPSULE PO SCH ×2 (14:14→21:54)
--- NOTE | 2017-10-26 16:44 | Internal Med Progress Note ---
Date of Encounter: 10/26/17 Time of Encounter: 11:30 - Assessment and plan (1) Diabetic foot ulcer Current Visit: Yes Status: Acute Assessment and plan: Right diabetic foot ulcer with CT showing possible osteomyelitis in first digit and first metatarsal. Podiatry on board, status post incision and drainage of right foot with amputation of great toe and insufficient to bone cortex for osteomyelitis of the first metatarsal, postoperative day 1. Follow up intraoperative cultures and pathology report. Continue broad- spectrum IV antibiotics-cefepime, Flagyl, change clindamycin to vancomycin based on previous wound cultures. Blood cultures negative. Patient will likely require long-term IV antibiotics. We will consult infectious diseases after culture results. Local wound care and postoperative care per podiatry. Qualifiers: Diabetic foot ulcer location: toe Diabetes mellitus type: type 2 Laterality: right Non-pressure ulcer stage: unspecified non-pressure ulcer stage Qualified Code(s): E11.621 - Type 2 diabetes mellitus with foot ulcer; L97.519 - Non-pressure chronic ulcer of other part of right foot with unspecified severity (2) Sepsis Current Visit: Yes Status: Acute Assessment and plan: Presented with leukopenia, tachycardia and tachypnea. Leukopenia seems to be chronic. Sepsis currently resolved. Serum lactic acid noted to be normal. Qualifiers: Sepsis type: sepsis due to unspecified organism Qualified Code(s): A41.9 - Sepsis, unspecified organism (3) Diabetes mellitus Current Visit: Yes Status: Chronic Assessment and plan: Blood sugars noted to be well controlled. Continue Accu-Chek blood glucose monitoring with sliding scale insulin. Diabetic diet. 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 use Diabetes mellitus complication status: with skin complications Diabetes mellitus complication detail: with foot ulcer Qualified Code(s): E11.621 - Type 2 diabetes mellitus with foot ulcer; L97.509 - Non-pressure chronic ulcer of other part of unspecified foot with unspecified severity (4) Hypertension Current Visit: Yes Status: Chronic Qualifiers: Hypertension type: essential hypertension Qualified Code(s): I10 - Essential (primary) hypertension (5) Hypothyroidism Current Visit: Yes Status: Chronic Qualifiers: Hypothyroidism type: unspecified Qualified Code(s): E03.9 - Hypothyroidism , unspecified (6) Osteomyelitis Current Visit: Yes Status: Acute Assessment and plan: Plan as above. Qualifiers: Osteomyelitis type: unspecified type Osteomyelitis location: foot Laterality: right Qualified Code(s): M86.9 - Osteomyelitis, unspecified (7) Anxiety and depression Current Visit: Yes Status: Chronic Assessment and plan: Resume home meds. - Time Spent With Patient Total time spent is greater than 50% in coordination of care (as documented) at patient's floor/unit and/or counseling patient: - Subjective Interval history: Reports feeling better. Request to resume home antidepressants. Reports right foot pain, controlled with oral pain medications. No fever, chills, chest pain , shortness of breath, diarrhea. - Constitutional Vitals: Temp Pulse Resp BP Pulse Ox 97.9 F 70 15 111/65 95 10/26/17 15:49 10/26/17 15:49 10/26/17 15:49 10/26/17 15:49 10/26/17 15:49 General appearance: Present: A&O X 3, no acute distress, answers questions appropriately - Respiratory Respiratory exam: Present: CTAB. Absent: accessory muscle use, rales, rhonchi, wheezes - Cardiovascular Cardiovascular exam: Present: RRR, +S1, +S2. Absent: diastolic murmur, gallop, rubs, systolic murmur - GI/Abdominal GI/Abdominal exam: Present: normal bowel sounds, soft, no peritoneal signs. Absent: distended, tenderness - Extremities Exam Extremities exam: Present: warm, radial pulses palpable and symmetrical. Absent : calf tenderness, cyanotic, pedal edema Additional comments: Right foot in surgical dressing - Neurological Exam Neurological exam: Present: CN II-XII intact, oriented X3, no focal deficits. Absent: pronater drift, facial droop, speech deficit Internal Medicine: Result - Labs CBC & Chem 7: 10/26/17 05:36 10/26/17 05:36 Labs: Short CBC 10/26/17 Range/Units 05:36 WBC 2.1 L (4.3-11.1) K/mcL Hgb 9.1 L (11.5-15.4) g/dL Hct 29.2 L (35.3-44.9) % Plt Count 208 (140-400) K/mcL BMP 10/26/17 05:36 Sodium 136 Potassium 3.9 Chloride 107 Carbon Dioxide 25 BUN 8 Creatinine 0.48 L Glucose 136 H Calcium 8.2 L - ABG Interpretation ABG results: PT/INR, D-dimer PT 14.5 Seconds (9.4-12.1) H 10/25/17 00:41 - VTE Documentation of Mechanical Device: Intermittent pneumatic compression device Consult Discharge Plan - Plan Referrals: NONE,PCP [Primary Care Provider] -
--- NOTE | 2017-10-26 17:22 | Podiatry Progress Note ---
Date of Encounter: 10/26/17 Time of Encounter: 17:00 - Assessment and Plan (1) Foot ulcer Current Visit: No Status: Acute s/p Incision and drainage right foot with amputation of great toe and incision to bone cortex for osteomyelitis of the first metatarsal of the right foot on per Dr. 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 Ornelas. Patient resting comfortably in bed. Dressing CDI. No strikethrough drainage. Patient denies any pain at this time.. States it throbs if she dangles her foot. Patient denies any fevers or chills. States she has had some nausea. States she is having a hard time dealing with the fact her foot has been cut on, does not want to look at wound. Objective - Vital Signs Vital Signs: Vital Signs Temp Pulse Resp BP Pulse Ox 10/26/17 15:49 97.9 F 70 15 111/65 95 10/26/17 10:16 98.5 F 89 14 134/75 92 10/26/17 08:56 94 10/26/17 06:59 98.3 F 89 14 148/75 94 10/26/17 04:18 99.6 F 93 15 155/84 94 10/25/17 23:27 98.7 F 97 15 116/67 93 10/25/17 19:22 98.5 F 92 15 158/76 94 Intake and Output 10/26/17 10/26/17 10/26/17 07:59 15:59 23:59 Intake Total 1390 / 1390 1690 / 1690 100 / 100 Output Total 400 / 400 500 / 500 Balance 990 / 990 1190 / 1190 100 / 100 Intake: IV Fluids 1390 / 1390 970 / 970 100 / 100 0.9 % Sodium Chloride 1,000 ML 1200 / 1200 550 / 550 @ 100 mls/hr IVC .Q10H [facility] Rx#: [id number] Maxipime 2,000 MG In Water for 40 / 40 20 / 20 inj. (sterile) 20 ML @ 300 mls/ hr IVP Q8HR [facility] Rx#:[id number] Cleocin Premix 600 MG/50 ML 600 50 / 50 50 / 50 mg In 50 ml @ 50 mls/hr IVPB Q8HR [facility] Rx#:[id number] Flagyl Premix 500 MG/100 ML 500 100 / 100 100 / 100 100 / 100 mg In 100 ml @ 100 mls/hr IVPB Q8HR [facility] Rx#:[id number] Vancocin 1,500 MG In 0.9 % 250 / 250 Sodium Chloride 250 ML @ 166.67 mls/hr IVPB Q12H [facility] Rx#: [id number] Oral 0 / 0 720 / 720 Output: Urine 400 / 400 500 / 500 Other: Meal Lunch Percent of Meal Consumed 80% Stool Size Moderate Stool Consistency soft Stool Characteristics Normal for Patient Stool Color Brown # Voids 1 # Bowel Movements 1 Weight 94.2 kg Blood Glucose* 138 162 128 Patient Weight 10/26/17 23:59 Weight 94.2 kg - Exam Exam: Podiatry General Exam: General appearance: alert awake oriented X 3. Calm and pleasant, no acute distress.. Vascular: Pedal pulses +2/4 DP/PT , No evidence of cyanosis, pallor or rubor, Edema graded at 1+/4, Skin Temperature warm, No calf pain with manual compression. capillary refill time is immediate to digits. Neurologic: Sensation intact with light touch to foot. . Postop Exam: S/P Incision and drainage of medial aspect of right foot Large open surgical area of the medial aspect of the right foot, [id number] , uneven borders noted. Open for drainage. No suture line.No odor. Mild surrounding edema and erythema. Skin edges remain healthy and viable. Mild amount of bloody drainage. No sinus tracts undermining or tunneling. No fluctuance noted. - Lab Result Diagrams: 10/28/17 05:39 10/28/17 05:39 Labs: Abnormal lab results WBC 2.1 K/mcL (4.3-11.1) L 10/26/17 05:36 RBC 3.05 M/mcL (3.82-4.97) L 10/26/17 05:36 Hgb 9.1 g/dL (11.5-15.4) L 10/26/17 05:36 Hct 29.2 % (35.3-44.9) L 10/26/17 05:36 MCHC 31.2 g/dL (31.6-35.5) L 10/26/17 05:36 RDW 15.4 % (11.5-14.5) H 10/26/17 05:36 Neutrophils # 1.5 K/mcL (1.6-8.9) L 10/25/17 00:41 Lymphocytes # 0.5 K/mcL (0.6-4.6) L 10/25/17 00:41 Nucleated RBCs/100 WBC 1.4 /100 WBC (0) H 10/25/17 00:41 ESR >= 130 mm/hr (0-15) H 10/24/17 20:30 PT 14.5 Seconds (9.4-12.1) H 10/25/17 00:41 Creatinine 0.48 mg/dL (0.60-1.20) L 10/26/17 05:36 Glucose 136 mg/dL (70-105) H 10/26/17 05:36 POC Glucose 173 mg/dL (70-99) H 10/26/17 16:36 Calcium 8.2 mg/dL (8.6-10.3) L 10/26/17 05:36 C-Reactive Protein 182 mg/L (Less than 10) H 10/24/17 20:15 - VTE Documentation of Mechanical Device: Intermittent pneumatic compression device Consult Discharge Plan - Plan Referrals: NONE,PCP [Primary Care Provider] -
[2017-10-26] MEDS: Ketorolac 30 MG/ML VIAL IVP PRN (22:16)
[2017-10-27] MEDS: MetroNIDAZOLE 500 MG/100 ML 500 MG/100 ML BAG IVPB SCH ×3 (01:24→21:33)
[2017-10-27] MEDS: Cefepime HCl 2,000 MG in Water for inj. (sterile) 20 ML 20 ML IVP SCH ×3 (01:25→21:31)
[2017-10-27] MEDS: *HR* Heparin 5,000 UNIT/ML VIAL SQ SCH ×2 (05:39→17:28)
[2017-10-27 06:26] LABS: Platelet Count 226 K/mcL (140-400); Red Cell Distribution Width 15.3 % (11.5-14.5)
[2017-10-27 06:27] LABS: Mean Corpuscular Hemoglobin 29.6 pg (28.0-33.3); Mean Corpuscular Volume 95.4 fL (83.0-100.0); Red Blood Count 3.04 M/mcL (3.82-4.97)
[2017-10-27 06:46] LABS: BUN/Creatinine Ratio 16 (6-26); Blood Urea Nitrogen 8 mg/dL (6-20); Calcium 8.2 mg/dL (8.6-10.3); Carbon Dioxide 24 mEq/L (23-29); Chloride 107 mEq/L (98-107); Glucose 136 mg/dL (70-105); Osmolality,Calculated 282 (280-300); Potassium 3.8 mEq/L (3.5-5.1); Sodium 136 mEq/L (136-145); eGFR For African Americans > 60 (> 60); eGFR For Non-African Americans > 60 (> 60)
--- NOTE | 2017-10-27 07:03 | Electrocardiograph Report ---
[address] [place], [place] [address] Test Date: 2017-10-24 Pat Name: Alannah Walker Department: 103 Room: 3A Gender: F Medical Investigator: TMR : 1960 Requested By: Yareli Song Order Number: [id number] Reading MD: Darnell Adams Measurements Intervals Penn Laird Rate: 101 P: 36 TN: 160 QRS: -1 QRSD: 89 T: 18 QT: 278 QTc: 336 Interpretive Statements SINUS TACHYCARDIA Poor R wave progression Electronically Signed On 10-27-2017 7:01:28 EDT by Darnell Adams
[2017-10-27] MEDS: Lactobacillus 1 EACH CAP.SPRINK PO SCH (09:23)
[2017-10-27] MEDS: BuPROPion XL (24 HR) 150 MG TABLET PO SCH ×2 (09:23→17:31)
[2017-10-27] MEDS: Gabapentin 100 MG CAPSULE PO SCH ×3 (09:24→21:31)
[2017-10-27] MEDS: clonazePAM 0.5 MG TABLET PO PRN (13:16)
[2017-10-27] MEDS: Insulin LISPRO 300 UNITS/3 ML VIAL SQ SCH ×4 (15:15→21:31)
--- NOTE | 2017-10-27 16:12 | Internal Med Progress Note ---
Date of Encounter: 10/27/17 Time of Encounter: 11:00 - Assessment and plan (1) Diabetic foot ulcer Current Visit: Yes Status: Acute Assessment and plan: Right diabetic foot ulcer with CT showing possible osteomyelitis in first digit and first metatarsal. Podiatry on board, status post incision and drainage of right foot with amputation of great toe and insufficient to bone cortex for osteomyelitis of the first metatarsal, postoperative day 2. Dressing change today, anticipate return to OR in 2-3 days for repeat washout and probable wound VAC placement. Follow up final intraoperative cultures and pathology report. Preliminary wound culture from October 25 grows gram-positive cocci. Continue broad-spectrum IV antibiotics-cefepime, Flagyl, vancomycin based on previous wound cultures. Blood cultures negative. Patient will likely require long-term IV antibiotics. We will consult infectious diseases after culture results. Local wound care and postoperative care per podiatry. PT/OT evaluation. family services specialist consult for discharge planning. Qualifiers: Diabetic foot ulcer location: toe Diabetes mellitus type: type 2 Laterality: right Non-pressure ulcer stage: unspecified non-pressure ulcer stage Qualified Code(s): E11.621 - Type 2 diabetes mellitus with foot ulcer; L97.519 - Non-pressure chronic ulcer of other part of right foot with unspecified severity (2) Sepsis Current Visit: Yes Status: Acute Assessment and plan: Presented with leukopenia, tachycardia and tachypnea. Secondary to infected right diabetic foot ulcer. Sepsis currently resolved. Serum lactic acid noted to be normal. Qualifiers: Sepsis type: sepsis due to unspecified organism Qualified Code(s): A41.9 - Sepsis, unspecified organism (3) Diabetes mellitus Current Visit: Yes Status: Chronic Assessment and plan: Blood sugars noted to be well controlled. Continue Accu-Chek blood glucose monitoring with sliding scale insulin. Diabetic diet. 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 insulin use: without nursing home use Diabetes mellitus complication status: with skin complications Diabetes mellitus complication detail: with foot ulcer Qualified Code(s): E11.621 - Type 2 diabetes mellitus with foot ulcer; L97.509 - Non-pressure chronic ulcer of other part of unspecified foot with unspecified severity (4) Hypertension Current Visit: Yes Status: Chronic Qualifiers: Hypertension type: essential hypertension Qualified Code(s): I10 - Essential (primary) hypertension (5) Hypothyroidism Current Visit: Yes Status: Chronic Qualifiers: Hypothyroidism type: unspecified Qualified Code(s): E03.9 - Hypothyroidism , unspecified (6) Osteomyelitis Current Visit: Yes Status: Acute Qualifiers: Osteomyelitis type: unspecified type Osteomyelitis location: foot Laterality: right Qualified Code(s): M86.9 - Osteomyelitis, unspecified (7) Anxiety and depression Current Visit: Yes Status: Chronic Assessment and plan: Resume home meds. - Time Spent With Patient Total time spent is greater than 50% in coordination of care (as documented) at patient's floor/unit and/or counseling patient: - Subjective Interval history: Denies new complaints. Improving right foot pain. No fever, chills, nausea, vomiting. - Constitutional Vitals: Temp Pulse Resp BP Pulse Ox 97.9 F 69 16 151/80 96 10/27/17 11:00 10/27/17 11:00 10/27/17 11:00 10/27/17 11:00 10/27/17 11:00 General appearance: Present: A&O X 3, no acute distress, answers questions appropriately - Respiratory Respiratory exam: Present: CTAB. Absent: accessory muscle use, rales, rhonchi, wheezes - Cardiovascular Cardiovascular exam: Present: RRR, +S1, +S2. Absent: diastolic murmur, gallop, rubs, systolic murmur - GI/Abdominal GI/Abdominal exam: Present: normal bowel sounds, soft, no peritoneal signs. Absent: distended, tenderness - Extremities Exam Extremities exam: Present: warm, radial pulses palpable and symmetrical. Absent : calf tenderness, cyanotic, pedal edema Additional comments: right foot in surgical dressing Internal Medicine: Result - Labs CBC & Chem 7: 10/27/17 05:58 10/27/17 05:58 Labs: Short CBC 10/27/17 Range/Units 05:58 WBC 1.8 L (4.3-11.1) K/mcL Hgb 9.0 L (11.5-15.4) g/dL Hct 29.0 L (35.3-44.9) % Plt Count 226 (140-400) K/mcL BMP 10/27/17 05:58 Sodium 136 Potassium 3.8 Chloride 107 Carbon Dioxide 24 BUN 8 Creatinine 0.51 L Glucose 136 H Calcium 8.2 L - ABG Interpretation ABG results: PT/INR, D-dimer PT 14.5 Seconds (9.4-12.1) H 10/25/17 00:41 - VTE Documentation of Mechanical Device: Intermittent pneumatic compression device Consult Discharge Plan - Plan Referrals: NONE,PCP [Primary Care Provider] -
--- NOTE | 2017-10-27 16:52 | Podiatry Progress Note ---
Date of Encounter: 10/27/17 Time of Encounter: 12:00 - Assessment and Plan (1) Foot ulcer Current Visit: No Status: Acute s/p Incision and drainage right foot with amputation of great toe and incision to bone cortex for osteomyelitis of the first metatarsal of the right foot on per Dr. Ornelas Dressing changed at bedside today Removed dressing, flushed wound with saline, repacked with iodoform and MARTA bandage Patient tolerated well Patient is limited weight bearing, pivot to heel only Continue IV broad spectrum antibiotic coverage at this time, intra op cultures pending Dressing changes as ordered Will plan to return to OR in 2-3 days for repeat washout and probable wound vac placement, likely Wednesday Will need SW on board for discharge planning 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 Subjective Interval history: POD #2 Incision and drainage right foot with amputation of great toe and incision to bone cortex for osteomyelitis of the first metatarsal of the right foot per Dr. Ornelas. Patient resting comfortably in bed. Dressing CDI. No strikethrough drainage. Patient denies any pain at this time.. States it throbs if she dangles her foot. Patient denies any fevers or chills. Objective - Vital Signs Vital Signs: Vital Signs Temp Pulse Resp BP Pulse Ox 10/27/17 11:00 97.9 F 69 16 151/80 96 10/27/17 07:18 97.5 F L 80 16 167/89 95 10/27/17 05:30 97.6 F 75 14 151/85 96 10/27/17 00:54 97.8 F 78 16 143/73 95 10/26/17 19:35 98.2 F 87 16 166/77 96 Intake and Output 10/27/17 10/27/17 10/27/17 07:59 15:59 23:59 Intake Total 370 / 370 Output Total 1200 / 1200 1600 / 1600 Balance -830 / -830 -1600 / -1600 Intake: IV Fluids 370 / 370 Maxipime 2,000 MG In Water for 20 / 20 inj. (sterile) 20 ML @ 300 mls/ hr IVP Q8HR [facility] Rx#:[id number] Flagyl Premix 500 MG/100 ML 500 100 / 100 mg In 100 ml @ 100 mls/hr IVPB Q8HR [facility] Rx#:[id number] Vancocin 1,500 MG In 0.9 % 250 / 250 Sodium Chloride 250 ML @ 166.67 mls/hr IVPB Q12H [facility] Rx#: [id number] Oral 0 / 0 Output: Urine 1200 / 1200 1600 / 1600 Other: Stool Size Small Stool Consistency soft Stool Color Brown # Bowel Movements 1 Blood Glucose* 135 216 - Exam Exam: Podiatry General Exam: General appearance: alert awake oriented X 3. Calm and pleasant, no acute distress.. Vascular: Pedal pulses +2/4 DP/PT , No evidence of cyanosis, pallor or rubor, Edema graded at 1+/4, Skin Temperature warm, No calf pain with manual compression. capillary refill time is immediate to digits. Neurologic: Sensation intact with light touch to foot. . Postop Exam: S/P Incision and drainage of medial aspect of right foot Large open surgical area of the medial aspect of the right foot, [id number] , uneven borders noted. Open for drainage. No suture line.No odor. Mild surrounding edema and erythema. Skin edges remain healthy and viable. Mild amount of bloody drainage. No sinus tracts undermining or tunneling. No fluctuance noted. - Lab Result Diagrams: 10/28/17 05:39 10/28/17 05:39 Labs: Abnormal lab results WBC 1.8 K/mcL (4.3-11.1) L 10/27/17 05:58 RBC 3.04 M/mcL (3.82-4.97) L 10/27/17 05:58 Hgb 9.0 g/dL (11.5-15.4) L 10/27/17 05:58 Hct 29.0 % (35.3-44.9) L 10/27/17 05:58 MCHC 31.0 g/dL (31.6-35.5) L 10/27/17 05:58 RDW 15.3 % (11.5-14.5) H 10/27/17 05:58 MPV 9.0 fL (9.4-12.4) L 10/27/17 05:58 Neutrophils # 1.5 K/mcL (1.6-8.9) L 10/25/17 00:41 Lymphocytes # 0.5 K/mcL (0.6-4.6) L 10/25/17 00:41 Nucleated RBCs/100 WBC 1.4 /100 WBC (0) H 10/25/17 00:41 ESR >= 130 mm/hr (0-15) H 10/24/17 20:30 PT 14.5 Seconds (9.4-12.1) H 10/25/17 00:41 Creatinine 0.51 mg/dL (0.60-1.20) L 10/27/17 05:58 Glucose 136 mg/dL (70-105) H 10/27/17 05:58 POC Glucose 216 mg/dL (70-99) H 10/27/17 11:35 Calcium 8.2 mg/dL (8.6-10.3) L 10/27/17 05:58 C-Reactive Protein 182 mg/L (Less than 10) H 10/24/17 20:15 Microbiology, Last 48 Hours 10/25/17 16:00 Wound Culture - Preliminary Right Foot Gram Positive Cocci - VTE Documentation of Mechanical Device: Intermittent pneumatic compression device Consult Discharge Plan - Plan Referrals: NONE,PCP [Primary Care Provider] -
[2017-10-27] MEDS: Ondansetron 4 MG/2 ML VIAL IVP PRN (22:05)
[2017-10-28] MEDS: Cefepime HCl 2,000 MG in Water for inj. (sterile) 20 ML 20 ML IVP SCH ×3 (00:03→15:16)
[2017-10-28] MEDS: MetroNIDAZOLE 500 MG/100 ML 500 MG/100 ML BAG IVPB SCH ×4 (00:03→22:48)
[2017-10-28 06:01] LABS: Hematocrit 30.2 % (35.3-44.9); Hemoglobin 9.2 g/dL (11.5-15.4); Mean Corpuscular HGB Conc 30.5 g/dL (31.6-35.5); Mean Corpuscular Hemoglobin 28.5 pg (28.0-33.3); Mean Corpuscular Volume 93.5 fL (83.0-100.0); Mean Platelet Volume 9.1 fL (9.4-12.4); Platelet Count 267 K/mcL (140-400); Red Blood Count 3.23 M/mcL (3.82-4.97); Red Cell Distribution Width 15.1 % (11.5-14.5)
[2017-10-28 06:21] LABS: BUN/Creatinine Ratio 18 (6-26); Blood Urea Nitrogen 8 mg/dL (6-20); Calcium 8.3 mg/dL (8.6-10.3); Carbon Dioxide 25 mEq/L (23-29); Chloride 106 mEq/L (98-107); Glucose 143 mg/dL (70-105); Osmolality,Calculated 285 (280-300); Potassium 3.9 mEq/L (3.5-5.1); Sodium 137 mEq/L (136-145); eGFR For African Americans > 60 (> 60); eGFR For Non-African Americans > 60 (> 60)
[2017-10-28] MEDS: *HR* Heparin 5,000 UNIT/ML VIAL SQ SCH ×2 (06:50→17:11)
[2017-10-28] MEDS: Insulin LISPRO 300 UNITS/3 ML VIAL SQ SCH ×4 (08:21→22:44)
[2017-10-28] MEDS: Gabapentin 100 MG CAPSULE PO SCH ×3 (09:05→22:35)
[2017-10-28] MEDS: Lactobacillus 1 EACH CAP.SPRINK PO SCH (09:05)
[2017-10-28] MEDS: BuPROPion XL (24 HR) 150 MG TABLET PO SCH ×2 (09:06→17:25)
[2017-10-28] MEDS: Ondansetron 4 MG/2 ML VIAL IVP PRN (09:06)
--- NOTE | 2017-10-28 14:45 | Infectious Disease Consult ---
Date of Encounter: 10/28/17 Time of Encounter: 14:43 Assessment and Plan (1) Sepsis Status: Resolved Assessment and plan: Severe sepsis Patient had 3 of 4 SIRS criteria on presentation with leukopenia, tachycardia, tachypnea Lactic acid was 2.9 on presentation, since normalized Source is right foot wound with osteomyelitis Causative organism MSSA Resolved at this time Blood cultures are negative Plan as below Qualifiers: Sepsis type: sepsis due to unspecified organism Qualified Code(s): A41.9 - Sepsis, unspecified organism (2) Osteomyelitis Status: Acute Assessment and plan: Osteomyelitis of right great toe and first metatarsal status post I&D and amputation Causative organism MSSA Source is likely diabetic foot wound Patient underwent surgical debridement on October 25 with operative evidence of osteomyelitis Intraoperative bone cultures positive for MSSA Plan for repeat surgical debridement tomorrow with possible wound VAC placement per podiatry Patient is currently being treated with vancomycin, cefepime, Flagyl DC vancomycin, DC cefepime Continue Flagyl until anaerobic cultures return Patient has reported penicillin and sulfa allergies Start Ancef 2 g every 8 hours Duration will be based on clinical picture but likely 6 weeks Continue to monitor renal function and avoid nephrotoxins Dose antibiotics based on renal function As an outpatient patient will need weekly CBC, renal function panel, ESR, CRP Qualifiers: Osteomyelitis type: unspecified type Osteomyelitis location: foot Laterality: right Qualified Code(s): M86.9 - Osteomyelitis, unspecified (3) Bicytopenia Status: Acute Assessment and plan: Patient has leukopenia and anemia Patient reports that these are chronic for her and her white blood cell count is usually [id number] Patient reports extensive workup including bone marrow biopsy in the 1980s No cause for her leukopenia was established Discussed with patient, recommend outpatient hematology workup given her persistent leukopenia with recurrent and difficult to treat infections despite good blood sugar control (4) Diabetes mellitus Status: Chronic Assessment and plan: Under good control per patient reports Most recent Hemoglobin A1c was 6.8 on 10/22/16 Further management per primary Qualifiers: Diabetes mellitus type: type 2 Diabetes mellitus assisted insulin use: without assisted use Diabetes mellitus complication status: with skin complications Diabetes mellitus complication detail: with foot ulcer Qualified Code(s): E11.621 - Type 2 diabetes mellitus with foot ulcer; L97.509 - Non-pressure chronic ulcer of other part of unspecified foot with unspecified severity (5) Anxiety and depression Status: Chronic Infectious Disease HPI - Data of Consult Patient: new to practice Consult date: 10/28/17 Requesting Physician: Lillian Hernandez MD Primary Care Provider: PCP NONE - Consult Narrative Reason for consult: Osteomyelitis History of present illness: Ms. Walker is a 57 year old female with history of type 2 diabetes, resting tachycardia, leukopenia, anxiety/depression, osteomyelitis in 2011. Patient was admitted to the hospital on October 24 for a right foot infection. We were consulted on October 28 for osteomyelitis and antibiotic management. Patient is a 57-year-old female with medical history as stated above. Patient reports approximately 2 weeks ago she had a fall at home that resulted in a wound on her right foot. Patient was seen by podiatry as an outpatient and treated with a seven-day course of Levaquin. Patient and report that her wound had improved until Wednesday morning when it became suddenly worse with increased drainage and increased size. Patient contacted the city surveyor who recommended that she come the emergency department. Patient was admitted on October 24 and was afebrile, had tachycardia of 100 on presentation, was tachypneic with a respiratory rate of 22 and and a blood pressure of 146/85. Patient was initially placed on clindamycin, cefepime, and Flagyl. Podiatry saw the patient and on October 25 patient underwent incision and drainage of the right foot with amputation of the great toe and bone excision of the first metatarsal. There were intraoperative findings consistent with osteomyelitis. Intraoperative cultures were sent and have returned positive for MSSA. Patient is currently being treated with vancomycin, cefepime, and Flagyl. Per the records is plans to return to the operating room tomorrow for a another washout with possible wound VAC placement. Patient reports that she has an extensive history of diabetic foot wounds and has had osteomyelitis past. She reports that in 2007 she tripped walking down stairs and broke her right foot read she underwent surgery at that time with hardware placement. She recovered well over the next couple years however in May 2011 she had erythema and swelling of her right foot and after investigation patient was found to have infected hardware and osteomyelitis due to MRSA. Patient reports that she completed 6 weeks of vancomycin at that time. In 2013 patient reports recurrent diabetic ulcers on both her left and right foot that were chronically nonhealing however she reports that her progressed to osteomyelitis. Patient reports that in May to September 2015 she was treated with 5 months of IV vancomycin for a left foot ulcer however she believes she is not diagnosed with osteomyelitis at this time. In July 2016 patient had another fall and injured her left foot resulting in a Lisfranc injury of her left foot. She had surgery at that time by Dr. Jacques and had hardware implanted. Patient is currently living with her daughter and son-in-law in [place], [place]. 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 In the last several years she has lived and worked in [place], [place], and [place]. CC: Lillian Hernandez MD Past Med Surg Social Fam HX - Past Medical History Medical history: diabetes, hypertension, thyroid disease Additional medical history: Osteomyelitis. MRSA. neuropathy Psychiatric history: anxiety, depression - Past Surgical History Surgical History: hysterectomy, orthopedic, other, sinus surgery, other Additional surgical history: left foot skin graft, left great toe hardware placement - Social History Smoking Status: Never smoker Smokeless Tobacco Status: No Alcohol use: none Drug use: none - Family History Mother Family Member Ethnicity: Non- Living Status: Hx Family Cardiac Disorders: No Hx Family Respiratory Disorders: No Hx Family Cancer: Yes Hx Family GI Disorders: No Hx Family Endocrine Disorder: Yes Hx Family Neuromuscular Disorders: Yes Hx Family Neurologic Disorders: No Hx Family HEENT Disorders: No Hx Family Autoimmune Disorders: No Infectious Disease-CN:Meds Bupropion HCl [Wellbutrin Xl] 300 mg PO QAM 11/13/15 [History] Citalopram [CeleXA] 20 mg PO DAILY 11/13/15 [History] Empagliflozin/Linagliptin [Glyxambi 25 mg-5 mg Tablet] 1 tab PO DAILY 11/13/15 [ History] Gabapentin [Neurontin] 100 mg PO TID 11/13/15 [History] Levothyroxine [Synthroid] 100 mcg PO DAILY 11/13/15 [History] Metoprolol [Lopressor] 25 mg PO BID 11/13/15 [History] glyBURIDE [GlyBURIDE] 10 mg PO BID 11/13/15 [History] BuPROPion XL (24 HR) [Wellbutrin Xl] 150 mg PO QPM 07/09/16 [History] Metformin HCl [Glucophage] 1,000 mg PO BID 07/09/16 [History] clonazePAM [Klonopin] 0.5 mg PO BID PRN #30 tablet 07/10/16 [Rx] 3 Allergy/AdvReac Type Severity Reaction Status Date / Time Penicillins [PCN] Allergy Rash Verified 10/28/16 06:56 Sulfa (Sulfonamide Allergy Rash Verified 10/28/16 06:56 Antibiotics) - Constitutional Constitutional: Present: fatigue. Absent: chills, fever(s) - EENT Eyes: Absent: change in vision, pain Nose, mouth and throat: Absent: mouth pain, sore throat - Cardiovascular Cardiovascular: Absent: chest pain, edema, irregular heart rhythm - Respiratory Respiratory: Absent: cough, dyspnea, chest congestion - Gastrointestinal Gastrointestinal: Present: nausea. Absent: abdominal pain, vomiting - Genitourinary Genitourinary: Absent: difficulty urinating, dysuria - Musculoskeletal Musculoskeletal: Present: numbness, tingling - Integumentary Integumentary: Present: non-healing lesions, skin ulcer. Absent: rash - Neurological Neurological: Absent: dizziness, weakness - Psychiatric Psychiatric: Present: anxiety, depression - Endocrine Endocrine: Present: fatigue. Absent: flushing - Hematologic/Lymphatic Hematologic/Lymphatic: Present: easy bruising. Absent: easy bleeding - Allergic/Immunologic Allergic/Immunologic: Absent: wheezing, GI upset with certain foods, lip swelling Exam - Constitutional Vitals: Temp Pulse Resp BP Pulse Ox 98.0 F 72 16 162/89 94 10/28/17 11:13 10/28/17 11:13 10/28/17 11:13 10/28/17 11:13 10/28/17 11:13 General appearance: no acute distress, obese - Head Head exam: Present: atraumatic, normal inspection, normocephalic - Eye Eye exam: Present: EOMI, PERRL - ENT ENT exam: Present: mucous membranes moist - Neck Neck exam: Present: full ROM - Respiratory Respiratory exam: Present: CTAB. Absent: rales, rhonchi, wheezes - Cardiovascular Cardiovascular exam: Present: RRR. Absent: diastolic murmur, irregular rhythm, systolic murmur - GI/Abdominal GI/Abdominal exam: Present: normal bowel sounds, soft. Absent: distended, tenderness - Extremities Exam Extremities exam: Absent: pedal edema Additional comments: Dressing applied to right foot. Dressing clean dry and intact - Neurological Exam Neurological exam: Present: alert, oriented X3, no focal deficits - Psychiatric Psychiatric exam: Present: anxious, depressed - Skin Skin exam: Present: dry, intact, warm Infectious Disease CN: Results - Labs CBC & Chem 7: 10/28/17 05:39 10/28/17 05:39 Cultures: Cultures 10/25/17 16:00 Anaerobic Culture - Preliminary Right Foot At this time, no anaerobic growth is present. The culture will be finalized after 5 days of incubation. 10/25/17 16:00 Wound Culture - Final Right Foot Staphylococcus aureus - VTE Documentation of Mechanical Device: Intermittent pneumatic compression device Consult Discharge Plan - Plan Referrals: NONE,PCP [Primary Care Provider] - - Attending Attestation I examined this patient and my medical decision-making was reviewed with the Resident Physician. I agree with the documented findings, disposition and treatment plan as described except to the extent set forth below. I examined this patient and my medical decision-making was reviewed with the Resident Physician. I agree with the documented findings, disposition and treatment plan as described except to the extent set forth below. This is an addendum to original report dictated by resident physician. Please refer to residents note for full detail. patient is a 57-year-old womanwith past medical history mentioned below has been having get wound diabetic foot ulcers since 2013 through 2016 and 1. apparently she received 5 months with IV vancomycin in [place]. Exact details of what was going on is not clear. Patient tells us that she had a positive culture for MRSA in 2011 where she had hardware from her foot removed. Patient states after 5 months of IV vancomycin the wound on her foot did not fully healed. in 2016 patient fell and had a surgery by Dr. Christiansen and required hardware in the left foot. 2 weeks prior to admission patient had a fall and had an injury to the right foot causing an ulcer that was infected. Patient was given 7 days worth of levofloxacin. Patient states the wound was getting back better on levofloxacin but then all of a sudden prior to admission the patient' s had worsening and significant drainage. Patient was instructed by sessions come to the emergency department to be dir Since admission patient has been afebrile, tachycardic, with leukopenia and lactic acidosis. Patients ESR and CRP where over 130 and 182 respectively. Blood cultures were obtained and are no growth 2 out of [address] foot Large soft tissue ulceration along the medial and plantar aspect of the foot involving the 1st digit and 1st metatarsal. Extensive soft tissue gas with sinus tract extending to the bone of the 1st digit and 1st metatarsal head as well as extending to the flexor hallucis longus tendon. Soft tissue gas noted within the bone of the distal digit great toe. Findings consistent with osteomyelitis. Although no bony destruction of the proximal phalanx 1st digit or 1st metatarsal, high concern for osteomyelitis given degree of soft tissue ulceration and penetrating gas. Small amount of complex fluid surrounds the extensor tendon 1st digit. Patient was taken to surgery by Dr. jacques on October 25 and underwent I&D of the right foot with amputation of the great toe with incision to bone cortex for osteomyelitis of the first metatarsal of the right foot. Intra-Op culture on October 25 grew Staphylococcus aureus that is methicillin sensitive. Patient has been on multiple antibiotics including vancomycin, cefepime, clindamycin and Flagyl. Patient apparently is allergic to penicillin and to sulfa. On further questioning patient tells me that she has been worked up extensively back in the 1980s for her leukopenia and even she had a bone marrow biopsy. No obvious pathology for her persistent leukopenia. Assessment and plan: Sepsis Osteomyelitis of the right foot status post I&D and amputation of the great toe on October 25: Intra-Op cultures positive for MSSA diabetes mellitus type 2 hypertension Hypothyroidism Anxiety and depression Recommendations: I am not sure what is causing this patients lesions and severe inflammation and what looks like tissue necrosis on pictures that her husbands showed me. I question whether the patient has an infection with typical bacteria versus fungal versus NTM versus other. I did call microbiology to see if they can do fungal and AFB cultures and smear and they said they do not have the specimen from Intra-Op anymore. I also spoke with Dr. jacques who stated that there was a lot of air bubbles intraoperatively. He finds his strength of the only thing that ever grew was MSSA. DC vancomycin DC cefepime Start cefazolin 2 g IV every 8 hours. Continue Flagyl Duration of treatment at least 6 weeks Patient will need a PICC line placement Monitor labs and for drug toxicity She will need weekly CBC, BMP, ESR and CRP while on antibiotics Patient is to follow-up with us in 2 weeks post discharge.
[2017-10-28] MEDS: Ketorolac 30 MG/ML VIAL IVP PRN (15:22)
--- NOTE | 2017-10-28 15:26 | Internal Med Progress Note ---
Date of Encounter: 10/28/17 Time of Encounter: 11:20 - Assessment and plan (1) Diabetic foot ulcer Current Visit: Yes Status: Acute Assessment and plan: Right diabetic foot ulcer with CT showing possible osteomyelitis in first digit and first metatarsal. Podiatry on board, status post incision and drainage of right foot with amputation of great toe and insufficient to bone cortex for osteomyelitis of the first metatarsal, postoperative day 3. Anticipate return to OR tomorrow for repeat washout and probable wound VAC placement. Intraoperative cultures grow MSSA; Blood cultures negative. Currently on Cefepime, Vancomycin and Flagyl; will likely require 4-6 weeks of IV antibiotics. probably use first generation cephalosporins and Flagyl due to PCN allergy; consulted ID, will f/up recommendations; F/up pathology report. Local wound care and postoperative care per podiatry. PT/OT evaluation noted, recommend [facility]. CM working on discharge planning. Qualifiers: Diabetic foot ulcer location: toe Diabetes mellitus type: type 2 Laterality: right Non-pressure ulcer stage: unspecified non-pressure ulcer stage Qualified Code(s): E11.621 - Type 2 diabetes mellitus with foot ulcer; L97.519 - Non-pressure chronic ulcer of other part of right foot with unspecified severity (2) Sepsis Current Visit: Yes Status: Resolved Assessment and plan: Presented with leukopenia, tachycardia and tachypnea. Secondary to infected right diabetic foot ulcer. Sepsis currently resolved. Serum lactic acid noted to be normal. Qualifiers: Sepsis type: sepsis due to unspecified organism Qualified Code(s): A41.9 - Sepsis, unspecified organism (3) Diabetes mellitus Current Visit: Yes Status: Chronic Assessment and plan: Blood sugars noted to be well controlled. Continue Accu-Chek blood glucose monitoring with sliding scale insulin. Diabetic diet. Qualifiers: Diabetes mellitus type: type 2 Diabetes mellitus custodial insulin use: without terminal operations manager use Diabetes mellitus complication status: with skin complications Diabetes mellitus complication detail: with foot ulcer Qualified Code(s): E11.621 - Type 2 diabetes mellitus with foot ulcer; L97.509 - Non-pressure chronic ulcer of other part of unspecified foot with unspecified severity (4) Hypertension Current Visit: Yes Status: Chronic Qualifiers: Hypertension type: essential hypertension Qualified Code(s): I10 - Essential (primary) hypertension (5) Hypothyroidism Current Visit: Yes Status: Chronic Qualifiers: Hypothyroidism type: unspecified Qualified Code(s): E03.9 - Hypothyroidism , unspecified (6) Osteomyelitis Current Visit: Yes Status: Acute Qualifiers: Osteomyelitis type: unspecified type Osteomyelitis location: foot Laterality: right Qualified Code(s): M86.9 - Osteomyelitis, unspecified (7) Anxiety and depression Current Visit: Yes Status: Chronic - Time Spent With Patient Total time spent is greater than 50% in coordination of care (as documented) at patient's floor/unit and/or counseling patient: - Subjective Interval history: Denies new complaints. Improving right foot pain. No fever, chills, nausea, vomiting. probable OR tomorrow; - Constitutional Vitals: Temp Pulse Resp BP Pulse Ox 98.0 F 72 16 162/89 94 10/28/17 11:13 10/28/17 11:13 10/28/17 11:13 10/28/17 11:13 10/28/17 11:13 General appearance: Present: A&O X 3, no acute distress, answers questions appropriately - Respiratory Respiratory exam: Present: CTAB. Absent: accessory muscle use, rales, rhonchi, wheezes - Cardiovascular Cardiovascular exam: Present: RRR, +S1, +S2. Absent: diastolic murmur, gallop, rubs, systolic murmur - GI/Abdominal GI/Abdominal exam: Present: normal bowel sounds, soft, no peritoneal signs. Absent: distended, tenderness - Extremities Exam Extremities exam: Present: warm, radial pulses palpable and symmetrical. Absent : calf tenderness, cyanotic, pedal edema Additional comments: left foot in surgical dressing - Neurological Exam Neurological exam: Present: CN II-XII intact, oriented X3, no focal deficits. Absent: pronater drift, facial droop, speech deficit Internal Medicine: Result - Labs CBC & Chem 7: 10/28/17 05:39 10/28/17 05:39 Labs: Short CBC 10/28/17 Range/Units 05:39 WBC 2.3 L (4.3-11.1) K/mcL Hgb 9.2 L (11.5-15.4) g/dL Hct 30.2 L (35.3-44.9) % Plt Count 267 (140-400) K/mcL BMP 10/28/17 05:39 Sodium 137 Potassium 3.9 Chloride 106 Carbon Dioxide 25 BUN 8 Creatinine 0.45 L Glucose 143 H Calcium 8.3 L - ABG Interpretation ABG results: PT/INR, D-dimer PT 14.5 Seconds (9.4-12.1) H 10/25/17 00:41 - VTE Documentation of Mechanical Device: Intermittent pneumatic compression device Consult Discharge Plan - Plan Referrals: NONE,PCP [Primary Care Provider] -
[2017-10-28] MEDS ORDERED: ceFAZolin 2,000 MG in D5% in Water 100 ML IVPB SCH (16:00)
[2017-10-28] MEDS: clonazePAM 0.5 MG TABLET PO PRN (17:39)
[2017-10-28] MEDS: CeFAZolin Pre 2,000 MG/100 ML 2,000 MG/100 ML BAG IVPB SCH (17:40)
--- NOTE | 2017-10-28 21:23 | Anesthesia Evaluation PreOp ---
Date of Encounter: 10/28/17 Time of Encounter: 18:35 - Past History Planned Operation: Rt Foot I and D Cardiac History: HTN, Hyperlipidemia Pulmonary History: Denies Any Significant HX BONE CHAR OPERATOR History: Denies Any Significant HX Other Medical History: Diabetes Type II, Thyroid, Other (Obese, Anxiety, Depression) Anesthesia History: No Prior Anesthetic Complications : No Alcohol Use: none Drug use: none Medications and Allergies Bupropion HCl [Wellbutrin Xl] 300 mg PO QAM 11/13/15 [History] Citalopram [CeleXA] 20 mg PO DAILY 11/13/15 [History] Empagliflozin/Linagliptin [Glyxambi 25 mg-5 mg Tablet] 1 tab PO DAILY 11/13/15 [ History] Gabapentin [Neurontin] 100 mg PO TID 11/13/15 [History] Levothyroxine [Synthroid] 100 mcg PO DAILY 11/13/15 [History] Metoprolol [Lopressor] 25 mg PO BID 11/13/15 [History] glyBURIDE [GlyBURIDE] 10 mg PO BID 11/13/15 [History] BuPROPion XL (24 HR) [Wellbutrin Xl] 150 mg PO QPM 07/09/16 [History] Metformin HCl [Glucophage] 1,000 mg PO BID 07/09/16 [History] clonazePAM [Klonopin] 0.5 mg PO BID PRN #30 tablet 07/10/16 [Rx] 3 Allergy/AdvReac Type Severity Reaction Status Date / Time Penicillins [PCN] Allergy Rash Verified 10/28/16 06:56 Sulfa (Sulfonamide Allergy Rash Verified 10/28/16 06:56 Antibiotics) - Meds/Allergy Pre-op Review Medications Reviewed: Yes Allergies Reviewed: Yes Beta Blockers on Current Med List: No Anesthesia Results - Labs 10/28/17 05:39 10/28/17 05:39 Laboratory Tests 10/28/17 10/28/17 05:39 05:39 Hgb 9.2 L Hct 30.2 L Plt Count 267 Sodium 137 Potassium 3.9 BUN 8 Creatinine 0.45 L - Imaging EKG: report reviewed (Sinus Tach poor R wave progression) Anesthesia Exam Vital Signs/O2 Sat/Glucose, Most Current Temp Pulse Resp BP Pulse Ox 10/28/17 21:14 97.9 F 73 14 175/93 96 Height: 5'4 Weight: 207 lbs NPO (# of Hours): MN Pain Scale: 0 - HEENT Pupil (Motor): Pupils equal, EOMI Mallampati: II Teeth: Normal Oral Opening: Greater than 3 - BONE CHAR OPERATOR LOC: Oriented BONE CHAR OPERATOR Motor: Normal RUE, Normal LUE, Normal RLE, Normal LLE, Normal Face BONE CHAR OPERATOR Sensory: Normal: RUE, LUE, LLE, Face, Deficit: RLE (neuropathy) - Cardiac Rhythm: Regular Murmur: None JVD: No Carotid Bruit: No - Pulmonary Breath Sounds: bilateral Clear Respiratory Effort: Symmetrical Anesthesia Assess/Plan ASA Score: 3 (HTN DM Obese) Modified Sor[place]o Scale for Level of Consciousness: Cooperative, oriented, and tranquil Anesthetic Plan: MAC Monitoring Plan: Standard Monitors Recovery Plan: Other (Discussed MAC, possible GA, agrees to proceed)
[2017-10-29] MEDS: CeFAZolin Pre 2,000 MG/100 ML 2,000 MG/100 ML BAG IVPB SCH ×3 (01:34→15:33)
[2017-10-29] MEDS: MetroNIDAZOLE 500 MG/100 ML 500 MG/100 ML BAG IVPB SCH ×3 (05:38→22:03)
[2017-10-29] MEDS: *HR* Heparin 5,000 UNIT/ML VIAL SQ SCH ×2 (05:40→16:37)
[2017-10-29] MEDS ORDERED: Ondansetron 4 MG/2 ML VIAL ONE (07:34)
[2017-10-29] MEDS ORDERED: Dexamethasone 4 MG/ML VIAL ONE (07:34)
[2017-10-29] MEDS ORDERED: Lidocaine -MPF 2% 2 ML VIAL ONE (07:34)
[2017-10-29] MEDS ORDERED: Propofol 500 MG/50 ML INFUS..BTL ONE (07:35)
[2017-10-29] MEDS ORDERED: Aminoglycoside Consult 1 EACH MC ONE (07:48)
[2017-10-29] MEDS: Insulin LISPRO 300 UNITS/3 ML VIAL SQ SCH ×4 (08:18→21:54)
[2017-10-29] MEDS ORDERED: *HR* Midazolam HCl 2 MG/2 ML VIAL ONE (08:45)
[2017-10-29] MEDS ORDERED: *HR* FentaNYL (PF) 100 MCG/2 ML VIAL ONE (08:45)
[2017-10-29] MEDS ORDERED: Bupivacaine/Clonidine Syringe 1 EACH SYRINGE ONE (09:45)
--- NOTE | 2017-10-29 10:09 | Infectious Disease Progress No ---
Date of Encounter: 10/29/17 Time of Encounter: 10:06 - Assessment and Plan (1) Sepsis Current Visit: Yes Status: Resolved Severe sepsis Patient had 3 of 4 SIRS criteria on presentation with leukopenia, tachycardia, tachypnea Lactic acid was 2.9 on presentation, since normalized Source is right foot wound with osteomyelitis Causative organism MSSA Resolved at this time Blood cultures are negative Plan as below Qualifiers: Sepsis type: methicillin susceptible Staphylococcus aureus Qualified Code(s ): A41.01 - Sepsis due to Methicillin susceptible Staphylococcus aureus (2) Osteomyelitis Current Visit: Yes Status: Acute Osteomyelitis of right great toe and first metatarsal status post I&D and amputation Causative organism MSSA Source is likely diabetic foot wound Patient underwent surgical debridement on October 25 with operative evidence of osteomyelitis Intraoperative bone cultures positive for MSSA Plan for repeat surgical debridement this morning with possible wound VAC placement per podiatry Patient is currently being treated with Cefazolin 2 g every 8h, Flagyl 500 mg every 8h Continue Flagyl until anaerobic cultures return Patient has reported penicillin and sulfa allergies Given patient's history of recurrent nonhealing infections, I spoke with Dr. jacques and he will obtain intraoperative cultures today that will be sent for [employer] looking for atypical mycobacterium and fungal cultures Duration will be based on clinical picture but likely 6 weeks Consult vascular access team Continue to monitor renal function and avoid nephrotoxins Dose antibiotics based on renal function As an outpatient patient will need weekly CBC, renal function panel, ESR, CRP Follow-up with infectious disease as an outpatient in 2 weeks after discharge Qualifiers: Osteomyelitis type: unspecified type Osteomyelitis location: foot Laterality: right Qualified Code(s): M86.9 - Osteomyelitis, unspecified (3) Bicytopenia Current Visit: Yes Status: Acute Patient has leukopenia and anemia Patient reports that these are chronic for her and her white blood cell count is usually [id number], CBC was not checked this morning Patient reports extensive workup including bone marrow biopsy in the 1980s No cause for her leukopenia was established Discussed with patient, recommend outpatient hematology workup given her persistent leukopenia with recurrent and difficult to treat infections despite good blood sugar control (4) Diabetes mellitus Current Visit: Yes Status: Chronic Under good control per patient reports Most recent Hemoglobin A1c was 6.8 on 10/22/16 Further management per primary Qualifiers: Diabetes mellitus type: type 2 Diabetes mellitus senior living insulin use: without development disability specialist use Diabetes mellitus complication status: with skin complications Diabetes mellitus complication detail: with foot ulcer Qualified Code(s): E11.621 - Type 2 diabetes mellitus with foot ulcer; L97.509 - Non-pressure chronic ulcer of other part of unspecified foot with unspecified severity (5) Anxiety and depression Current Visit: Yes Status: Chronic - Subjective Interval history: Patient seen and examined at bedside. Patient states that she feels pretty good today. She has no complaints at this time. She denies pain, fever, chills , shortness of breath, nausea, vomiting, diarrhea. Infect Dis PN-Objective Data - Labs CBC & Chem 7: 10/28/17 05:39 10/28/17 05:39 Labs: Laboratory Results - last 24 hr 10/28/17 10/28/17 10/28/17 11:17 15:42 20:46 POC Glucose 200 H 150 H 208 H Cultures: Cultures 10/25/17 16:00 Anaerobic Culture - Preliminary Right Foot At this time, no anaerobic growth is present. The culture will be finalized after 5 days of incubation. 10/25/17 16:00 Wound Culture - Final Right Foot Staphylococcus aureus Exam - Constitutional Vitals: Temp Pulse Resp BP Pulse Ox 98.4 F 66 14 125/76 96 10/29/17 07:19 10/29/17 07:19 10/29/17 07:19 10/29/17 07:19 10/29/17 07:19 - Respiratory Respiratory exam: Present: CTAB. Absent: rales, rhonchi, wheezes - Cardiovascular Cardiovascular exam: Present: RRR. Absent: diastolic murmur, systolic murmur - GI/Abdominal GI/Abdominal exam: Present: normal bowel sounds, soft. Absent: distended, tenderness - Extremities Exam Additional comments: Dressing applied to right lower extremity, clean dry and intact - Neurological Exam Neurological exam: Present: alert, oriented X3, no focal deficits - VTE Documentation of Mechanical Device: Intermittent pneumatic compression device Consult Discharge Plan - Plan Referrals: NONE,PCP [Primary Care Provider] - - Attending Attestation I examined this patient and my medical decision-making was reviewed with the Resident Physician. I agree with the documented findings, disposition and treatment plan as described except to the extent set forth below. spoke with [facility], wanting to find out if there is fungal Ribosomal sequencing and NTM pcr that we can send specimen for. awaiting phonecall from their pathologist
[2017-10-29] MEDS: BuPROPion XL (24 HR) 150 MG TABLET PO SCH ×2 (11:55→16:38)
[2017-10-29] MEDS: Lactobacillus 1 EACH CAP.SPRINK PO SCH (11:56)
[2017-10-29] MEDS: Gabapentin 100 MG CAPSULE PO SCH ×3 (11:56→22:00)
[2017-10-29] MEDS: clonazePAM 0.5 MG TABLET PO PRN (12:15)
[2017-10-29] MEDS ORDERED: Ketorolac 30 MG/ML VIAL IVP PRN (13:11)
--- NOTE | 2017-10-29 16:03 | Internal Med Progress Note ---
Date of Encounter: 10/29/17 Time of Encounter: 13:00 - Assessment and plan (1) Diabetic foot ulcer Current Visit: Yes Status: Acute Assessment and plan: Right diabetic foot ulcer with CT showing possible osteomyelitis in first digit and first metatarsal. Podiatry on board, status post incision and drainage of right foot with amputation of great toe and insufficient to bone cortex for osteomyelitis of the first metatarsal, postoperative day 4. Repeat debridement and partial bone resection today; plan for wound vac placement in am; Intraoperative cultures grow MSSA; Blood cultures negative. On Ancef and Flagyl per ID recommendations; will likely require 4-6 weeks of IV antibiotics. F/up pathology report. Local wound care and postoperative care per podiatry. PT/OT evaluation noted, recommend [facility]. CM working on discharge planning. Qualifiers: Diabetic foot ulcer location: toe Diabetes mellitus type: type 2 Laterality: right Non-pressure ulcer stage: unspecified non-pressure ulcer stage Qualified Code(s): E11.621 - Type 2 diabetes mellitus with foot ulcer; L97.519 - Non-pressure chronic ulcer of other part of right foot with unspecified severity (2) Sepsis Current Visit: Yes Status: Resolved Qualifiers: Sepsis type: methicillin susceptible Staphylococcus aureus Qualified Code(s ): A41.01 - Sepsis due to Methicillin susceptible Staphylococcus aureus (3) Diabetes mellitus Current Visit: Yes Status: Chronic Assessment and plan: Blood sugars noted to be well controlled. Continue Accu-Chek blood glucose monitoring with sliding scale insulin. Diabetic diet. Qualifiers: Diabetes mellitus type: type 2 Diabetes mellitus usp insulin use: without computer terminal operator use Diabetes mellitus complication status: with skin complications Diabetes mellitus complication detail: with foot ulcer Qualified Code(s): E11.621 - Type 2 diabetes mellitus with foot ulcer; L97.509 - Non-pressure chronic ulcer of other part of unspecified foot with unspecified severity (4) Hypertension Current Visit: Yes Status: Chronic Assessment and plan: BP noted to be uncontrolled today; will increase Metoprolol and is PRN IV Hydralazine for appropriate BP control; Qualifiers: Hypertension type: essential hypertension Qualified Code(s): I10 - Essential (primary) hypertension (5) Hypothyroidism Current Visit: Yes Status: Chronic Qualifiers: Hypothyroidism type: unspecified Qualified Code(s): E03.9 - Hypothyroidism , unspecified (6) Osteomyelitis Current Visit: Yes Status: Acute Qualifiers: Osteomyelitis type: unspecified type Osteomyelitis location: foot Laterality: right Qualified Code(s): M86.9 - Osteomyelitis, unspecified (7) Anxiety and depression Current Visit: Yes Status: Chronic - Time Spent With Patient Total time spent is greater than 50% in coordination of care (as documented) at patient's floor/unit and/or counseling patient: - Subjective Interval history: Denies new complaints. Improving right foot pain. No fever, chills, nausea, vomiting. Had debridement and partial bone resection in the OR today; BP high; - Constitutional Vitals: Temp Pulse Resp BP Pulse Ox 97.9 F 66 16 147/85 96 10/29/17 15:09 10/29/17 15:09 10/29/17 15:09 10/29/17 15:10/29/17 15:09 General appearance: Present: A&O X 3, answers questions appropriately - Respiratory Respiratory exam: Present: CTAB. Absent: accessory muscle use, rales, rhonchi, wheezes - Cardiovascular Cardiovascular exam: Present: RRR, +S1, +S2. Absent: diastolic murmur, gallop, rubs, systolic murmur - GI/Abdominal GI/Abdominal exam: Present: normal bowel sounds, soft, no peritoneal signs. Absent: distended, tenderness - Extremities Exam Extremities exam: Present: warm, radial pulses palpable and symmetrical. Absent : calf tenderness, cyanotic, pedal edema Additional comments: right foot in surgical dressing; Internal Medicine: Result - Labs CBC & Chem 7: 10/28/17 05:39 10/28/17 05:39 - ABG Interpretation ABG results: PT/INR, D-dimer PT 14.5 Seconds (9.4-12.1) H 10/25/17 00:41 - VTE Documentation of Mechanical Device: Intermittent pneumatic compression device Consult Discharge Plan - Plan Referrals: NONE,PCP [Primary Care Provider] -
--- NOTE | 2017-10-29 17:27 | Operative Note ---
Date of procedure: 10/29/17 Pre-op diagnosis: Right foot infection Post-op diagnosis: same Procedure: Irrigation and debridement of wound, right foot. Incision to bone cortex for osteomyelitis, right foot. Complications: None Anesthesia: MANGO Surgeon: Luis Carlos Ornelas Was there an office assistant receptionist present: No Estimated blood loss (cc): 15 Specimen: Bone biopsy first metatarsal, culture, right foot Condition: stable Disposition: floor Procedure in Detail: The patient was administered IV antibiotics. The patient was transported to the operative room and placed on operating table. Following anesthesia the extremity was scrubbed prepped and draped in the usual aseptic fashion. A timeout was performed. The wound site was inspected and there was very minimal necrotic tissue and little to no purulence. The tissue debrided consisted of dermis, epidermis, subcutaneous, fascia, bone. The wound size was large and irregular but measured approximately 8 cm in diameter. A small amount of prominent bone near the base of the first metatarsal was inspected and an incision was made to the bone cortex through the periosteum and a small amount of bone was curetted and also sent to pathology. Cultures were obtained as well. Pulse irrigation was performed with significant amounts of normal saline. Due to a mild amount of macerated skin the decision was made to avoid placing the wound VAC until tomorrow. Some small retention sutures were used to partially close the site and keep the tissue from ruperto. The site was packed open and dressed with a dry sterile dressing. The patient tolerated the procedure and anesthesia well and was transported to the recovery room with vital signs stable and vascular status intact to both feet. The patient will remain nonweightbearing.
[2017-10-30] MEDS: CeFAZolin Pre 2,000 MG/100 ML 2,000 MG/100 ML BAG IVPB SCH ×3 (00:15→16:50)
[2017-10-30] MEDS: MetroNIDAZOLE 500 MG/100 ML 500 MG/100 ML BAG IVPB SCH ×3 (07:16→21:40)
[2017-10-30] MEDS: *HR* Heparin 5,000 UNIT/ML VIAL SQ SCH ×2 (07:16→16:48)
[2017-10-30] MEDS: Acetaminophen 325 MG TABLET PO PRN (08:20)
[2017-10-30] MEDS: Ondansetron 4 MG/2 ML VIAL IVP PRN (08:20)
[2017-10-30] MEDS: Gabapentin 100 MG CAPSULE PO SCH ×3 (08:20→21:36)
[2017-10-30] MEDS: BuPROPion XL (24 HR) 150 MG TABLET PO SCH ×2 (08:20→16:48)
[2017-10-30] MEDS: Lactobacillus 1 EACH CAP.SPRINK PO SCH (08:20)
[2017-10-30] MEDS: Insulin LISPRO 300 UNITS/3 ML VIAL SQ SCH ×4 (08:21→21:32)
--- NOTE | 2017-10-30 17:06 | Internal Med Progress Note ---
Date of Encounter: 10/30/17 Time of Encounter: 13:40 - Assessment and plan (1) Diabetic foot ulcer Current Visit: Yes Status: Acute Assessment and plan: Right diabetic foot ulcer with CT showing possible osteomyelitis in first digit and first metatarsal. Podiatry on board, status post incision and drainage of right foot with amputation of great toe and insufficient to bone cortex for osteomyelitis of the first metatarsal, postoperative day 5. Repeat debridement and partial bone resection POD-1; plan for wound vac placement pending; Intraoperative cultures grow MSSA; Blood cultures negative. On Ancef and Flagyl per ID recommendations; will likely require 4-6 weeks of IV antibiotics. F/up pathology report. Local wound care and postoperative care per podiatry. PT/OT evaluation noted, recommend [facility]. CM working on discharge planning. Qualifiers: Diabetic foot ulcer location: toe Diabetes mellitus type: type 2 Laterality: right Non-pressure ulcer stage: unspecified non-pressure ulcer stage Qualified Code(s): E11.621 - Type 2 diabetes mellitus with foot ulcer; L97.519 - Non-pressure chronic ulcer of other part of right foot with unspecified severity (2) Sepsis Current Visit: Yes Status: Resolved Qualifiers: Sepsis type: methicillin susceptible Staphylococcus aureus Qualified Code(s ): A41.01 - Sepsis due to Methicillin susceptible Staphylococcus aureus (3) Diabetes mellitus Current Visit: Yes Status: Chronic Assessment and plan: Blood sugars noted to be well controlled. Continue Accu-Chek blood glucose monitoring with sliding scale insulin. Diabetic diet. Qualifiers: Diabetes mellitus type: type 2 Diabetes mellitus halfway insulin use: without ferry terminal agent use Diabetes mellitus complication status: with skin complications Diabetes mellitus complication detail: with foot ulcer Qualified Code(s): E11.621 - Type 2 diabetes mellitus with foot ulcer; L97.509 - Non-pressure chronic ulcer of other part of unspecified foot with unspecified severity (4) Hypertension Current Visit: Yes Status: Chronic Assessment and plan: BP continues to be elevated. Continue Metoprolol, add Norvasc. PRN IV Hydralazine for appropriate BP control; Qualifiers: Hypertension type: essential hypertension Qualified Code(s): I10 - Essential (primary) hypertension (5) Hypothyroidism Current Visit: Yes Status: Chronic Qualifiers: Hypothyroidism type: unspecified Qualified Code(s): E03.9 - Hypothyroidism , unspecified (6) Osteomyelitis Current Visit: Yes Status: Acute Qualifiers: Osteomyelitis type: unspecified type Osteomyelitis location: foot Laterality: right Qualified Code(s): M86.9 - Osteomyelitis, unspecified (7) Anxiety and depression Current Visit: Yes Status: Chronic - Time Spent With Patient Total time spent is greater than 50% in coordination of care (as documented) at patient's floor/unit and/or counseling patient: - Subjective Interval history: Denies new complaints. No fever, chills, nausea, vomiting. - Constitutional Vitals: Temp Pulse Resp BP Pulse Ox 98.1 F 69 16 167/89 95 10/30/17 16:14 10/30/17 16:14 10/30/17 16:14 10/30/17 16:14 10/30/17 16:14 General appearance: Present: A&O X 3, answers questions appropriately - Respiratory Respiratory exam: Present: CTAB. Absent: accessory muscle use, rales, rhonchi, wheezes - Cardiovascular Cardiovascular exam: Present: RRR, +S1, +S2. Absent: diastolic murmur, gallop, rubs, systolic murmur Internal Medicine: Result - Labs CBC & Chem 7: 10/28/17 05:39 10/28/17 05:39 - ABG Interpretation ABG results: PT/INR, D-dimer PT 14.5 Seconds (9.4-12.1) H 10/25/17 00:41 - VTE Documentation of Mechanical Device: Intermittent pneumatic compression device Consult Discharge Plan - Plan Referrals: NONE,PCP [Primary Care Provider] -
[2017-10-30] MEDS: clonazePAM 0.5 MG TABLET PO PRN (21:38)
[2017-10-31] MEDS: CeFAZolin Pre 2,000 MG/100 ML 2,000 MG/100 ML BAG IVPB SCH ×4 (00:52→23:57)
[2017-10-31] MEDS: MetroNIDAZOLE 500 MG/100 ML 500 MG/100 ML BAG IVPB SCH ×3 (06:20→22:57)
[2017-10-31] MEDS: *HR* Heparin 5,000 UNIT/ML VIAL SQ SCH ×2 (06:24→16:52)
[2017-10-31] MEDS: Acetaminophen 325 MG TABLET PO PRN (06:29)
[2017-10-31] MEDS: Ondansetron 4 MG/2 ML VIAL IVP PRN (06:42)
[2017-10-31] MEDS: Gabapentin 100 MG CAPSULE PO SCH ×3 (08:06→22:57)
[2017-10-31] MEDS: amLODIPine 5 MG TABLET PO SCH (08:06)
[2017-10-31] MEDS: Lactobacillus 1 EACH CAP.SPRINK PO SCH (08:07)
[2017-10-31] MEDS: BuPROPion XL (24 HR) 150 MG TABLET PO SCH ×2 (08:07→16:52)
[2017-10-31] MEDS: Insulin LISPRO 300 UNITS/3 ML VIAL SQ SCH ×4 (08:07→22:57)
--- NOTE | 2017-10-31 15:49 | Internal Med Progress Note ---
Date of Encounter: 10/31/17 Time of Encounter: 11:45 - Assessment and plan (1) Diabetic foot ulcer Current Visit: Yes Status: Acute Assessment and plan: Right diabetic foot ulcer with CT showing possible osteomyelitis in first digit and first metatarsal. Podiatry on board, status post incision and drainage of right foot with amputation of great toe and insufficient to bone cortex for osteomyelitis of the first metatarsal, postoperative day 6. Repeat debridement and partial bone resection POD-2; plan for wound vac placement pending; Intraoperative cultures from 10/25 grow MSSA; from 10/29 preliminary grows Staph ; Blood cultures negative. On Ancef and Flagyl per ID recommendations; will likely require 4-6 weeks of IV antibiotics. F/up pathology report. Local wound care and postoperative care per podiatry. PT/OT evaluation noted, recommend [facility]. CM working on discharge planning. Qualifiers: Diabetic foot ulcer location: toe Diabetes mellitus type: type 2 Laterality: right Non-pressure ulcer stage: unspecified non-pressure ulcer stage Qualified Code(s): E11.621 - Type 2 diabetes mellitus with foot ulcer; L97.519 - Non-pressure chronic ulcer of other part of right foot with unspecified severity (2) Sepsis Current Visit: Yes Status: Resolved Qualifiers: Sepsis type: methicillin susceptible Staphylococcus aureus Qualified Code(s ): A41.01 - Sepsis due to Methicillin susceptible Staphylococcus aureus (3) Diabetes mellitus Current Visit: Yes Status: Chronic Assessment and plan: Blood sugars noted to be increasing. Continue Accu-Chek blood glucose monitoring, increase sliding scale insulin. Diabetic diet. Qualifiers: Diabetes mellitus type: type 2 Diabetes mellitus half-way insulin use: without half-way use Diabetes mellitus complication status: with skin complications Diabetes mellitus complication detail: with foot ulcer Qualified Code(s): E11.621 - Type 2 diabetes mellitus with foot ulcer; L97.509 - Non-pressure chronic ulcer of other part of unspecified foot with unspecified severity (4) Hypertension Current Visit: Yes Status: Chronic Assessment and plan: BP better controlled. Continue Metoprolol and Norvasc. PRN IV Hydralazine for appropriate BP control; Qualifiers: Hypertension type: essential hypertension Qualified Code(s): I10 - Essential (primary) hypertension (5) Hypothyroidism Current Visit: Yes Status: Chronic Qualifiers: Hypothyroidism type: unspecified Qualified Code(s): E03.9 - Hypothyroidism , unspecified (6) Osteomyelitis Current Visit: Yes Status: Acute Qualifiers: Osteomyelitis type: unspecified type Osteomyelitis location: foot Laterality: right Qualified Code(s): M86.9 - Osteomyelitis, unspecified (7) Anxiety and depression Current Visit: Yes Status: Chronic - Time Spent With Patient Total time spent is greater than 50% in coordination of care (as documented) at patient's floor/unit and/or counseling patient: - Subjective Interval history: Denies new complaints. No fever, chills, nausea, vomiting. - Constitutional Vitals: Temp Pulse Resp BP Pulse Ox 98.0 F 65 16 145/79 96 10/31/17 10:58 10/31/17 10:58 10/31/17 10:58 10/31/17 10:58 10/31/17 10:58 General appearance: Present: A&O X 3, answers questions appropriately - Respiratory Respiratory exam: Present: CTAB. Absent: accessory muscle use, rales, rhonchi, wheezes - Cardiovascular Cardiovascular exam: Present: RRR, +S1, +S2. Absent: diastolic murmur, gallop, rubs, systolic murmur Internal Medicine: Result - Labs CBC & Chem 7: 10/28/17 05:39 10/28/17 05:39 - ABG Interpretation ABG results: PT/INR, D-dimer PT 14.5 Seconds (9.4-12.1) H 10/25/17 00:41 - VTE Documentation of Mechanical Device: Intermittent pneumatic compression device Consult Discharge Plan - Plan Referrals: NONE,PCP [Primary Care Provider] -
[2017-10-31] MEDS: clonazePAM 0.5 MG TABLET PO PRN (23:37)
--- NOTE | 2017-11-01 00:11 | Podiatry Progress Note ---
Date of Encounter: 10/31/17 Time of Encounter: 12:09 - Assessment and Plan (1) Foot ulcer Current Visit: No Status: Acute The patient dressing was removed and a wound VAC was applied. The wound VAC will need to be changed every Wednesday, Wednesday, Wednesday. Additional washout possible in 1-2 days depending on the patient's labs and clinical appearance of her foot. Patient will need to remain weightbearing to the heel only of the affected lower extremity. Continued antibiotic therapy will be needed prior infectious disease. 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 Subjective Principal diagnosis: Status post amputation of the hallux and first ray resection Interval history: Patient was seen at bedside concerned about her amputation. Patient is also concerned about the wound healing. Patient relates that she has little to no pain secondary to her peripheral neuropathy. Objective - Vital Signs Vital Signs: Vital Signs Temp Pulse Resp BP Pulse Ox 10/31/17 19:00 98.1 F 74 14 162/85 93 10/31/17 10:58 98.0 F 65 16 145/79 96 10/31/17 07:39 97.7 F 88 14 172/84 96 10/31/17 04:12 98.1 F 68 14 171/92 91 Intake and Output 10/31/17 10/31/17 11/01/17 15:59 23:59 07:59 Intake Total 920 / 920 500 / 500 100 / 100 Output Total 1100 / 1100 1800 / 1800 Balance -180 / -180 -1300 / -1300 100 / 100 Intake: IV Fluids 200 / 200 200 / 200 100 / 100 Ancef Premix 2,000 MG/100 ML 2, 100 / 100 100 / 100 000 mg In 100 ml @ 200 mls/hr IVPB Q8H [facility] Rx#:[id number] Flagyl Premix 500 MG/100 ML 500 100 / 100 100 / 100 100 / 100 mg In 100 ml @ 100 mls/hr IVPB Q8H [facility] Rx#:[id number] Oral 720 / 720 300 / 300 Output: Urine 1100 / 1100 1800 / 1800 Other: Meal Lunch Percent of Meal Consumed 100% Stool Size Small Large Stool Consistency formed formed Stool Color Brown Brown # Bowel Movements 1 Blood Glucose* 206 224 - Exam Exam: Drainage noted consistent with serous drainage. Wound present and is a chevron type shape. The apex being distal the base being proximal. The measurements of the wound are approximately 2 cm in width extending the length of the chevron -shaped which is approximately 7 cm in length along each arm of the chevron, full-thickness in depth, beefy red granular tissue at the base width and mild serous drainage. Pedal pulses palpable. Capillary fill time intact to the digits. There are no other new open lesions, abrasions, or ulcerations. - Lab Result Diagrams: 10/28/17 05:39 10/28/17 05:39 Labs: Abnormal lab results WBC 2.3 K/mcL (4.3-11.1) L 10/28/17 05:39 RBC 3.23 M/mcL (3.82-4.97) L 10/28/17 05:39 Hgb 9.2 g/dL (11.5-15.4) L 10/28/17 05:39 Hct 30.2 % (35.3-44.9) L 10/28/17 05:39 MCHC 30.5 g/dL (31.6-35.5) L 10/28/17 05:39 RDW 15.1 % (11.5-14.5) H 10/28/17 05:39 MPV 9.1 fL (9.4-12.4) L 10/28/17 05:39 Neutrophils # 1.5 K/mcL (1.6-8.9) L 10/25/17 00:41 Lymphocytes # 0.5 K/mcL (0.6-4.6) L 10/25/17 00:41 Nucleated RBCs/100 WBC 1.4 /100 WBC (0) H 10/25/17 00:41 ESR >= 130 mm/hr (0-15) H 10/24/17 20:30 PT 14.5 Seconds (9.4-12.1) H 10/25/17 00:41 Creatinine 0.45 mg/dL (0.60-1.20) L 10/28/17 05:39 Glucose 143 mg/dL (70-105) H 10/28/17 05:39 POC Glucose 224 mg/dL (70-99) H 10/31/17 20:20 Calcium 8.3 mg/dL (8.6-10.3) L 10/28/17 05:39 C-Reactive Protein 182 mg/L (Less than 10) H 10/24/17 20:15 Vancomycin Trough 13 mcg/mL (5-10) H 10/27/17 22:46 Microbiology, Last 48 Hours 10/29/17 10:12 Wound Culture - Preliminary Right Foot Staphylococcus aureus 10/29/17 10:15 Acid Fast Stain - Final Other-Specify in Comments - VTE Documentation of Mechanical Device: Intermittent pneumatic compression device Consult Discharge Plan - Plan Referrals: NONE,PCP [Primary Care Provider] -
[2017-11-01] MEDS: MetroNIDAZOLE 500 MG/100 ML 500 MG/100 ML BAG IVPB SCH (05:49)
[2017-11-01] MEDS: *HR* Heparin 5,000 UNIT/ML VIAL SQ SCH ×2 (05:49→17:06)
[2017-11-01] MEDS: Ondansetron 4 MG/2 ML VIAL IVP PRN (06:12)
[2017-11-01] MEDS: CeFAZolin Pre 2,000 MG/100 ML 2,000 MG/100 ML BAG IVPB SCH ×2 (08:28→15:56)
[2017-11-01] MEDS: Insulin LISPRO 300 UNITS/3 ML VIAL SQ SCH ×4 (08:28→21:35)
[2017-11-01] MEDS: Gabapentin 100 MG CAPSULE PO SCH ×3 (08:29→21:32)
[2017-11-01] MEDS: amLODIPine 5 MG TABLET PO SCH (08:29)
[2017-11-01] MEDS: Lactobacillus 1 EACH CAP.SPRINK PO SCH (08:29)
[2017-11-01] MEDS: BuPROPion XL (24 HR) 150 MG TABLET PO SCH ×2 (08:29→17:06)
--- NOTE | 2017-11-01 11:04 | Infectious Disease Progress No ---
Date of Encounter: 11/01/17 Time of Encounter: 11:03 - Assessment and Plan (1) Sepsis Current Visit: Yes Status: Resolved Severe sepsis Patient had 3 of 4 SIRS criteria on presentation with leukopenia, tachycardia, tachypnea Repeat CBC, BMP, ESR, CRP for tomorrow AM Lactic acid was 2.9 on presentation, since normalized Source is right foot wound with osteomyelitis Causative organism MSSA Resolved at this time Blood cultures are negative Plan as below Qualifiers: Sepsis type: methicillin susceptible Staphylococcus aureus Qualified Code(s ): A41.01 - Sepsis due to Methicillin susceptible Staphylococcus aureus (2) Osteomyelitis Current Visit: Yes Status: Acute Osteomyelitis of right great toe and first metatarsal status post I&D and amputation Causative organism MSSA Source is likely diabetic foot wound Patient underwent surgical debridement on October 25 with operative evidence of osteomyelitis Intraoperative bone cultures positive for MSSA Plan for repeat surgical debridement this morning with possible wound VAC placement per podiatry Patient is currently being treated with IV Cefazolin 2 g every 8h, PO Flagyl 500 mg every 8h Continue Flagyl until anaerobic cultures finalize; no growth currently Patient has reported penicillin and sulfa allergies Awaiting atypical mycobacterium and fungal cultures given patient's recurrent non-healing lesions Duration will be based on clinical picture but likely 6 weeks Consult vascular access team Continue to monitor renal function and avoid nephrotoxins Dose antibiotics based on renal function As an outpatient patient will need weekly CBC, renal function panel, ESR, CRP Follow-up with infectious disease as an outpatient in 2 weeks after discharge Qualifiers: Osteomyelitis type: unspecified type Osteomyelitis location: foot Laterality: right Qualified Code(s): M86.9 - Osteomyelitis, unspecified (3) Diabetes mellitus Current Visit: Yes Status: Chronic Accuchecks have shown sugars in the high 100s low 200s Most recent Hemoglobin A1c was 6.8 on 10/22/16 Further management per primary Qualifiers: Diabetes mellitus type: type 2 Diabetes mellitus detention insulin use: without detention use Diabetes mellitus complication status: with skin complications Diabetes mellitus complication detail: with foot ulcer Qualified Code(s): E11.621 - Type 2 diabetes mellitus with foot ulcer; L97.509 - Non-pressure chronic ulcer of other part of unspecified foot with unspecified severity (4) Bicytopenia Current Visit: Yes Status: Acute Patient has leukopenia and anemia Patient reports that these are chronic for her and her white blood cell count is usually [phone], CBC was not checked this morning Labs ordered for tomorrow AM Patient reports extensive workup including bone marrow biopsy in the 1980s No cause for her leukopenia was established Discussed with patient, recommend outpatient hematology workup given her persistent leukopenia with recurrent and difficult to treat infections despite good blood sugar control (5) Anxiety and depression Current Visit: Yes Status: Chronic - Subjective Interval history: Pt seen and examined. She states her right foot feels decent and doesn't complain of any pain at rest, but does hurt when she gets up to walk. Denies having any fever, chest pain, nausea, vomiting or diarrhea. She does endorse shortness of breath at times. Infect Dis PN-Objective Data - Labs CBC & Chem 7: 10/28/17 05:39 10/28/17 05:39 Labs: Laboratory Results - last 24 hr 10/31/17 10/31/17 10/31/17 11:03 16:35 20:20 POC Glucose 206 H 193 H 224 H 11/01/17 07:25 POC Glucose 240 H Cultures: Cultures 10/25/17 16:00 Anaerobic Culture - Preliminary Right Foot At this time, no anaerobic growth is present. The culture will be finalized after 5 days of incubation. 10/29/17 10:15 Anaerobic Culture - Preliminary Right Foot At this time, no anaerobic growth is present. The culture will be finalized after 5 days of incubation. 10/29/17 10:12 Wound Culture - Final Right Foot Staphylococcus aureus 10/29/17 10:15 Acid Fast Stain - Final Other-Specify in Comments 10/25/17 16:00 Wound Culture - Final Right Foot Staphylococcus aureus Exam - Constitutional Vitals: Temp Pulse Resp BP Pulse Ox 97.7 F 65 16 149/77 95 11/01/17 07:28 11/01/17 07:28 11/01/17 07:28 11/01/17 07:28 11/01/17 07:28 - Respiratory Respiratory exam: Present: decreased breath sounds. Absent: accessory muscle use, wheezes, tachypnea - Cardiovascular Cardiovascular exam: Present: RRR. Absent: irregular rhythm, systolic murmur, tachycardia - GI/Abdominal GI/Abdominal exam: Present: normal bowel sounds, soft. Absent: hypoactive bowel sounds, pulsatile mass, tenderness - Extremities Exam Extremities exam: Present: pedal edema (trace). Absent: tenderness Additional comments: wound vac in place on right foot minimal sanguinous drainage - VTE Documentation of Mechanical Device: Intermittent pneumatic compression device Consult Discharge Plan - Plan Referrals: NONE,PCP [Primary Care Provider] - - Attending Attestation I examined this patient and my medical decision-making was reviewed with the Resident Physician. I agree with the documented findings, disposition and treatment plan as described except to the extent set forth below.
[2017-11-01] MEDS: Insulin DETEMIR 100 UNIT/ML X5UNITS SQ SCH ×2 (11:51→21:40)
[2017-11-01] MEDS: metroNIDAZOLE 500 MG TABLET PO SCH ×2 (15:56→21:33)
--- NOTE | 2017-11-01 17:18 | Internal Med Progress Note ---
Date of Encounter: 11/01/17 Time of Encounter: 12:05 - Assessment and plan (1) Diabetic foot ulcer Current Visit: Yes Status: Acute Assessment and plan: Right diabetic foot ulcer with CT showing possible osteomyelitis in first digit and first metatarsal. Podiatry on board, status post incision and drainage of right foot with amputation of great toe and insufficient to bone cortex for osteomyelitis of the first metatarsal, postoperative day 7. Repeat debridement and partial bone resection POD-3; received wound vac yesterday; Intraoperative cultures from 10/25 and 10/29 grow MSSA; Blood cultures negative. On Ancef and Flagyl per ID recommendations; will likely require 4-6 weeks of IV antibiotics. pathology report s/o few areas of osteomyelitis. Local wound care and postoperative care per podiatry. PT/OT evaluation noted, recommend [facility]. CM working on discharge planning. Qualifiers: Diabetic foot ulcer location: toe Diabetes mellitus type: type 2 Laterality: right Non-pressure ulcer stage: unspecified non-pressure ulcer stage Qualified Code(s): E11.621 - Type 2 diabetes mellitus with foot ulcer; L97.519 - Non-pressure chronic ulcer of other part of right foot with unspecified severity (2) Sepsis Current Visit: Yes Status: Resolved Qualifiers: Sepsis type: methicillin susceptible Staphylococcus aureus Qualified Code(s ): A41.01 - Sepsis due to Methicillin susceptible Staphylococcus aureus (3) Diabetes mellitus Current Visit: Yes Status: Chronic Assessment and plan: Blood sugars continue to be elevated. Continue Accu-Chek blood glucose monitoring, sliding scale insulin. Add basal insulin; Diabetic diet. Qualifiers: Diabetes mellitus type: type 2 Diabetes mellitus watermaster insulin use: without care home use Diabetes mellitus complication status: with skin complications Diabetes mellitus complication detail: with foot ulcer Qualified Code(s): E11.621 - Type 2 diabetes mellitus with foot ulcer; L97.509 - Non-pressure chronic ulcer of other part of unspecified foot with unspecified severity (4) Hypertension Current Visit: Yes Status: Chronic Qualifiers: Hypertension type: essential hypertension Qualified Code(s): I10 - Essential (primary) hypertension (5) Hypothyroidism Current Visit: Yes Status: Chronic Qualifiers: Hypothyroidism type: unspecified Qualified Code(s): E03.9 - Hypothyroidism , unspecified (6) Osteomyelitis Current Visit: Yes Status: Acute Qualifiers: Osteomyelitis type: unspecified type Osteomyelitis location: foot Laterality: right Qualified Code(s): M86.9 - Osteomyelitis, unspecified (7) Anxiety and depression Current Visit: Yes Status: Chronic - Time Spent With Patient Total time spent is greater than 50% in coordination of care (as documented) at patient's floor/unit and/or counseling patient: - Subjective Interval history: Denies new complaints. No fever, chills, nausea, vomiting. - Constitutional Vitals: Temp Pulse Resp BP Pulse Ox 97.8 F 76 16 125/75 96 11/01/17 14:57 11/01/17 14:57 11/01/17 14:57 11/01/17 14:57 11/01/17 14:57 General appearance: Present: A&O X 3, answers questions appropriately - Respiratory Respiratory exam: Present: CTAB. Absent: accessory muscle use, rales, rhonchi, wheezes - Cardiovascular Cardiovascular exam: Present: RRR, +S1, +S2. Absent: diastolic murmur, gallop, rubs, systolic murmur Internal Medicine: Result - Labs CBC & Chem 7: 10/28/17 05:39 10/28/17 05:39 - ABG Interpretation ABG results: PT/INR, D-dimer PT 14.5 Seconds (9.4-12.1) H 10/25/17 00:41 - VTE Documentation of Mechanical Device: Intermittent pneumatic compression device Consult Discharge Plan - Plan Referrals: NONE,PCP [Primary Care Provider] -
[2017-11-01] MEDS: clonazePAM 0.5 MG TABLET PO PRN (22:32)
[2017-11-02] MEDS: CeFAZolin Pre 2,000 MG/100 ML 2,000 MG/100 ML BAG IVPB SCH ×3 (00:28→15:28)
[2017-11-02] MEDS: *HR* Heparin 5,000 UNIT/ML VIAL SQ SCH ×2 (06:11→17:15)
[2017-11-02] MEDS: Insulin LISPRO 300 UNITS/3 ML VIAL SQ SCH ×4 (08:18→21:14)
[2017-11-02] MEDS: Insulin DETEMIR 100 UNIT/ML X5UNITS SQ SCH ×2 (08:19→21:15)
[2017-11-02] MEDS: BuPROPion XL (24 HR) 150 MG TABLET PO SCH ×2 (08:19→17:15)
[2017-11-02] MEDS: Lactobacillus 1 EACH CAP.SPRINK PO SCH (08:19)
[2017-11-02] MEDS: metroNIDAZOLE 500 MG TABLET PO SCH ×3 (08:19→21:10)
[2017-11-02] MEDS: amLODIPine 5 MG TABLET PO SCH (08:19)
[2017-11-02] MEDS: Gabapentin 100 MG CAPSULE PO SCH ×3 (08:19→21:10)
[2017-11-02 08:57] LABS: BUN/Creatinine Ratio 25 (6-26); Blood Urea Nitrogen 14 mg/dL (6-20); C-Reactive Protein 9 mg/L (Less than 10); Calcium 9.2 mg/dL (8.6-10.3); Carbon Dioxide 27 mEq/L (23-29); Chloride 101 mEq/L (98-107); Glucose 206 mg/dL (70-105); Osmolality,Calculated 284 (280-300); Potassium 4.2 mEq/L (3.5-5.1); Sodium 134 mEq/L (136-145); eGFR For African Americans > 60 (> 60); eGFR For Non-African Americans > 60 (> 60)
--- NOTE | 2017-11-02 09:57 | Infectious Disease Progress No ---
Date of Encounter: 11/02/17 Time of Encounter: 09:55 - Assessment and Plan (1) Sepsis Current Visit: Yes Status: Resolved Severe sepsis Patient had 3 of 4 SIRS criteria on presentation with leukopenia, tachycardia, tachypnea Lactic acid was 2.9 on presentation, since normalized Source is right foot wound with osteomyelitis Causative organism MSSA Resolved at this time Blood cultures are negative Plan as below Qualifiers: Sepsis type: methicillin susceptible Staphylococcus aureus Qualified Code(s ): A41.01 - Sepsis due to Methicillin susceptible Staphylococcus aureus (2) Osteomyelitis Current Visit: Yes Status: Acute Osteomyelitis of right great toe and first metatarsal status post I&D and amputation Causative organism MSSA Source is likely diabetic foot wound Patient underwent surgical debridement on October 25 with operative evidence of osteomyelitis Intraoperative bone cultures positive for MSSA Plan for repeat surgical debridement this morning with possible wound VAC placement per podiatry Patient is currently being treated with IV Cefazolin 2 g every 8h, PO Flagyl 500 mg every 8h Continue Flagyl until anaerobic cultures finalize; no growth currently Patient has reported penicillin and sulfa allergies Awaiting atypical mycobacterium and fungal cultures given patient's recurrent non-healing lesions Duration will be based on clinical picture but likely 6 weeks Consult vascular access team Continue to monitor renal function and avoid nephrotoxins Dose antibiotics based on renal function Repeat inflammatory markers are improved As an outpatient patient will need weekly CBC, renal function panel, ESR, CRP Follow-up with infectious disease as an outpatient in 2 weeks after discharge Qualifiers: Osteomyelitis type: unspecified type Osteomyelitis location: foot Laterality: right Qualified Code(s): M86.9 - Osteomyelitis, unspecified (3) Diabetes mellitus Current Visit: Yes Status: Chronic Accuchecks have shown sugars in the high 100s low 200s Most recent Hemoglobin A1c was 6.8 on 10/22/16 Further management per primary Qualifiers: Diabetes mellitus type: type 2 Diabetes mellitus extermination inspector insulin use: without extermination inspector use Diabetes mellitus complication status: with skin complications Diabetes mellitus complication detail: with foot ulcer Qualified Code(s): E11.621 - Type 2 diabetes mellitus with foot ulcer; L97.509 - Non-pressure chronic ulcer of other part of unspecified foot with unspecified severity (4) Bicytopenia Current Visit: Yes Status: Acute Patient has leukopenia and anemia Patient reports that these are chronic for her and her white blood cell count is usually [id number], CBC was not checked this morning Labs ordered for tomorrow AM Patient reports extensive workup including bone marrow biopsy in the 1980s No cause for her leukopenia was established Discussed with patient, recommend outpatient hematology workup given her persistent leukopenia with recurrent and difficult to treat infections despite good blood sugar control (5) Anxiety and depression Current Visit: Yes Status: Chronic - Subjective Interval history: Pt seen and examined. She states her right foot continues to feel better and she is walking with the help of PT/OT during time of exam. She reports no increased redness, warmth or swelling of her leg. She denies any chest pain, shortness of breath, fever, diarrhea. She did report some nausea last night but no vomiting. Infect Dis PN-Objective Data - Labs CBC & Chem 7: 11/02/17 10:12 11/02/17 08:17 Labs: Laboratory Results - last 24 hr 11/01/17 11/01/17 11/01/17 11:01 16:15 20:36 ESR Sodium Potassium Chloride Carbon Dioxide BUN Creatinine Est GFR ( Amer) Est GFR (Non-Af Amer) BUN/Creatinine Ratio Glucose POC Glucose 216 H 189 H 244 H Calculated Osmolality Calcium C-Reactive Protein 11/02/17 11/02/17 11/02/17 07:16 08:17 08:17 ESR 117 H Sodium 134 L Potassium 4.2 Chloride 101 Carbon Dioxide 27 BUN 14 Creatinine 0.56 L Est GFR ( Amer) > 60 Est GFR (Non-Af Amer) > 60 BUN/Creatinine Ratio 25 Glucose 206 H POC Glucose 236 H Calculated Osmolality 284 Calcium 9.2 C-Reactive Protein 9 Cultures: Cultures 10/25/17 16:00 Anaerobic Culture - Preliminary Right Foot At this time, no anaerobic growth is present. The culture will be finalized after 5 days of incubation. 10/29/17 10:15 Anaerobic Culture - Preliminary Right Foot At this time, no anaerobic growth is present. The culture will be finalized after 5 days of incubation. 10/29/17 10:12 Wound Culture - Final Right Foot Staphylococcus aureus 10/29/17 10:15 Acid Fast Stain - Final Other-Specify in Comments 10/25/17 16:00 Wound Culture - Final Right Foot Staphylococcus aureus Exam - Constitutional Vitals: Temp Pulse Resp BP Pulse Ox 98.0 F 71 12 134/76 93 11/02/17 07:19 11/02/17 07:19 11/02/17 07:19 11/02/17 07:19 11/02/17 07:19 General appearance: cooperative, no acute distress - Head Head exam: Present: atraumatic, normocephalic - Respiratory Respiratory exam: Present: CTAB. Absent: accessory muscle use, respiratory distress, stridor, wheezes - Cardiovascular Cardiovascular exam: Present: RRR. Absent: irregular rhythm, systolic murmur, tachycardia - GI/Abdominal GI/Abdominal exam: Present: normal bowel sounds, soft. Absent: tenderness - Extremities Exam Additional comments: wound vac seen in right foot drainage sanguinous fluid - VTE Documentation of Mechanical Device: Intermittent pneumatic compression device Consult Discharge Plan - Plan Referrals: NONE,PCP [Primary Care Provider] - - Attending Attestation I examined this patient and my medical decision-making was reviewed with the Resident Physician. I agree with the documented findings, disposition and treatment plan as described except to the extent set forth below.
[2017-11-02 10:34] LABS: Basophils # 0.1 K/mcL (0.0-0.2); Basophils % 1.3 %; Eosinophils # 0.1 K/mcL (0.0-0.6); Hematocrit 37.1 % (35.3-44.9); Hemoglobin 11.8 g/dL (11.5-15.4); Immature Granulocytes % 0.5 % (0-4); Lymphocytes # 1.2 K/mcL (0.6-4.6); Lymphocytes % 30.7 %; Mean Corpuscular HGB Conc 31.8 g/dL (31.6-35.5); Mean Corpuscular Hemoglobin 29.9 pg (28.0-33.3); Mean Corpuscular Volume 94.2 fL (83.0-100.0); Mean Platelet Volume 8.8 fL (9.4-12.4); Monocytes # 0.3 K/mcL (0.0-1.3); Monocytes % 7.6 %; Neutrophils # 2.2 K/mcL (1.6-8.9); Platelet Count 324 K/mcL (140-400); Red Blood Count 3.94 M/mcL (3.82-4.97); Red Cell Distribution Width 15.2 % (11.5-14.5); Segmented Neutrophils % 56.9 %
[2017-11-02] MEDS: Ondansetron 4 MG/2 ML VIAL IVP PRN ×2 (16:49→21:49)
--- NOTE | 2017-11-02 17:46 | Internal Med Progress Note ---
Date of Encounter: 11/02/17 Time of Encounter: 11:00 - Assessment and plan (1) Osteomyelitis Current Visit: Yes Status: Acute Assessment and plan: Patient with osteomyelitis of right great toe and first metatarsal status post I &D and amputation secondary to MSSA due to diabetic foot wound Infectious disease following with recommendations to continue IV cefazolin and IV Flagyl with recommendations for a 6 week course as an outpatient Qualifiers: Osteomyelitis type: unspecified type Osteomyelitis location: foot Laterality: right Qualified Code(s): M86.9 - Osteomyelitis, unspecified (2) Sepsis Current Visit: Yes Status: Resolved Assessment and plan: Resolved; secondary to the above Qualifiers: Sepsis type: methicillin susceptible Staphylococcus aureus Qualified Code(s ): A41.01 - Sepsis due to Methicillin susceptible Staphylococcus aureus (3) Diabetic foot ulcer Current Visit: Yes Status: Acute Assessment and plan: Right diabetic foot ulcer with CT showing possible osteomyelitis in first digit and first metatarsal. Podiatry on board, status post incision and drainage of right foot with amputation of great toe; received wound vac Qualifiers: Diabetic foot ulcer location: toe Diabetes mellitus type: type 2 Laterality: right Non-pressure ulcer stage: unspecified non-pressure ulcer stage Qualified Code(s): E11.621 - Type 2 diabetes mellitus with foot ulcer; L97.519 - Non-pressure chronic ulcer of other part of right foot with unspecified severity (4) Diabetes mellitus Current Visit: Yes Status: Chronic Assessment and plan: Continue basal insulin with sliding scale insulin. Qualifiers: Diabetes mellitus type: type 2 Diabetes mellitus supervisor long goods insulin use: without supervisor long goods use Diabetes mellitus complication status: with skin complications Diabetes mellitus complication detail: with foot ulcer Qualified Code(s): E11.621 - Type 2 diabetes mellitus with foot ulcer; L97.509 - Non-pressure chronic ulcer of other part of unspecified foot with unspecified severity (5) Hypertension Current Visit: Yes Status: Chronic Assessment and plan: Controlled; continue Metoprolol and Norvasc. Qualifiers: Hypertension type: essential hypertension Qualified Code(s): I10 - Essential (primary) hypertension (6) Hypothyroidism Current Visit: Yes Status: Chronic Assessment and plan: Continue home medications Qualifiers: Hypothyroidism type: unspecified Qualified Code(s): E03.9 - Hypothyroidism , unspecified (7) Anxiety and depression Current Visit: Yes Status: Chronic Assessment and plan: Resume home meds. - Time Spent With Patient Total time spent is greater than 50% in coordination of care (as documented) at patient's floor/unit and/or counseling patient: - Subjective Interval history: Patient postop day 4 debridement with MSSA growth in cultures. Awaiting IV antibiotics set up with home health - Constitutional Vitals: Temp Pulse Resp BP Pulse Ox 97.9 F 81 12 130/75 92 11/02/17 15:14 11/02/17 15:14 11/02/17 15:14 11/02/17 15:14 11/02/17 15:14 General appearance: Present: A&O X 3, no acute distress, answers questions appropriately - Respiratory Respiratory exam: Present: CTAB. Absent: accessory muscle use, rales, rhonchi, wheezes - Cardiovascular Cardiovascular exam: Present: RRR, +S1, +S2. Absent: diastolic murmur, gallop, rubs, systolic murmur Internal Medicine: Result - Labs CBC & Chem 7: 11/02/17 10:12 11/02/17 08:17 Labs: Short CBC 11/02/17 Range/Units 10:12 WBC 3.9 L D (4.3-11.1) K/mcL Hgb 11.8 D (11.5-15.4) g/dL Hct 37.1 (35.3-44.9) % Plt Count 324 (140-400) K/mcL Neutrophils # 2.2 (1.6-8.9) K/mcL BMP 11/02/17 08:17 Sodium 134 L Potassium 4.2 Chloride 101 Carbon Dioxide 27 BUN 14 Creatinine 0.56 L Glucose 206 H Calcium 9.2 - ABG Interpretation ABG results: PT/INR, D-dimer PT 14.5 Seconds (9.4-12.1) H 10/25/17 00:41 - VTE Documentation of Mechanical Device: Intermittent pneumatic compression device Consult Discharge Plan - Plan Referrals: NONE,PCP [Primary Care Provider] -
--- NOTE | 2017-11-02 17:51 | Podiatry Progress Note ---
Date of Encounter: 11/02/17 Time of Encounter: 16:30 - Assessment and Plan (1) Foot ulcer Current Visit: No Status: Acute S/p Incision and drainage right foot with amputation of great toe and incision to bone cortex for osteomyelitis of the first metatarsal of the right foot by Dr. Ornelas on 10/25/17. S/p Irrigation and debridement of wound, right foot. Incision to bone cortex for osteomyelitis, right foot on 10/29/[address] Ornelas. WBC: 3.9, ESR: 117, CRP: 9. Plan: Antibiotics per ID. Awaiting PICC line. We will continue to monitor periwound erythema for 1 to 2 more days. Wound vac changed at bedside and patient will require wound vac post discharge. Wound vac paperwork completed and turned into case repairer. Patient will need to remain weightbearing to the heel only of the affected lower extremity. 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 (2) Diabetes mellitus Current Visit: Yes Status: Chronic Qualifiers: Diabetes mellitus type: type 2 Diabetes mellitus termite control servicer insulin use: without mcc use Diabetes mellitus complication status: with skin complications Diabetes mellitus complication detail: with foot ulcer Qualified Code(s): E11.621 - Type 2 diabetes mellitus with foot ulcer; L97.509 - Non-pressure chronic ulcer of other part of unspecified foot with unspecified severity (3) Osteomyelitis Current Visit: Yes Status: Acute Qualifiers: Osteomyelitis type: unspecified type Osteomyelitis location: foot Laterality: right Qualified Code(s): M86.9 - Osteomyelitis, unspecified Subjective Principal diagnosis: Status post amputation of the hallux and first ray resection Interval history: S/p Incision and drainage right foot with amputation of great toe and incision to bone cortex for osteomyelitis of the first metatarsal of the right foot by Dr. Orneals on 10/25/17. S/p Irrigation and debridement of wound, right foot. Incision to bone cortex for osteomyelitis, right foot on 10/29/[address] Ornelas. Patient is sitting up in bed with spouse at bedside. Wound vac intact to the right foot. Patient denies any pain, fever or chills overnight. Patient is tearful and states she has never had anything like this done before. Objective - Vital Signs Vital Signs: Vital Signs Temp Pulse Resp BP Pulse Ox 11/02/17 15:14 97.9 F 81 12 130/75 92 11/02/17 11:48 98.1 F 72 14 111/71 95 11/02/17 07:19 98.0 F 71 12 134/76 93 11/02/17 04:46 97.8 F 75 15 146/82 93 11/01/17 19:24 98.1 F 74 15 137/75 94 Intake and Output 11/02/17 11/02/17 11/02/17 07:59 15:59 23:59 Intake Total 0 / 0 440 / 440 580 / 580 Output Total 900 / 900 100 / 100 500 / 500 Balance -900 / -900 340 / 340 80 / 80 Intake: IV Fluids 200 / 200 100 / 100 Ancef Premix 2,000 MG/100 ML 2, 200 / 200 100 / 100 000 mg In 100 ml @ 200 mls/hr IVPB Q8H [facility] Rx#:[id number] Oral 0 / 0 240 / 240 480 / 480 Output: Urine 900 / 900 100 / 100 500 / 500 Other: Meal Breakfast Lunch Percent of Meal Consumed 100% 100% Stool Size Moderate Moderate Stool Consistency soft formed formed Stool Color Brown Brown # Voids 2 # Bowel Movements 2 1 Blood Glucose* 236 268 224 - Exam Exam: General appearance: alert awake oriented X 3. Calm and pleasant, tearful. Vascular: Right: Pedal pulses +1/4 DP/PT , No evidence of cyanosis, pallor or rubor, Edema graded at 1+/4, Skin Temperature warm, No calf pain with manual compression. capillary refill time is immediate to digits. Neurologic: Sensation diminished with light touch to foot. . Postop Exam: S/P Retention sutures intact to incision line, full thickness surgical wound measuring 6 cm in length x 6.8 cm in width x 0.9 cm in depth. Base of wound with 100 % red granulation tissue, 50 mls of serosanguineous drainage, no pus, no odor, light periwound erythema, no streaking. - Lab Result Diagrams: 11/02/17 10:12 11/02/17 08:17 Labs: Abnormal lab results WBC 3.9 K/mcL (4.3-11.1) L D 11/02/17 10:12 RDW 15.2 % (11.5-14.5) H 11/02/17 10:12 MPV 8.8 fL (9.4-12.4) L 11/02/17 10:12 Nucleated RBCs/100 WBC 1.4 /100 WBC (0) H 10/25/17 00:41 ESR 117 mm/hr (0-15) H 11/02/17 08:17 PT 14.5 Seconds (9.4-12.1) H 10/25/17 00:41 Sodium 134 mEq/L (136-145) L 11/02/17 08:17 Creatinine 0.56 mg/dL (0.60-1.20) L 11/02/17 08:17 Glucose 206 mg/dL (70-105) H 11/02/17 08:17 POC Glucose 224 mg/dL (70-99) H 11/02/17 16:48 Vancomycin Trough 13 mcg/mL (5-10) H 10/27/17 22:46 Microbiology, Last 48 Hours 10/25/17 16:00 Anaerobic Culture - Preliminary Right Foot At this time, no anaerobic growth is present. The culture will be finalized after 5 days of incubation. 10/29/17 10:15 Anaerobic Culture - Preliminary Right Foot At this time, no anaerobic growth is present. The culture will be finalized after 5 days of incubation. 10/29/17 10:12 Wound Culture - Final Right Foot Staphylococcus aureus - VTE Documentation of Mechanical Device: Intermittent pneumatic compression device Consult Discharge Plan - Plan Referrals: NONE,PCP [Primary Care Provider] -
[2017-11-02] MEDS: clonazePAM 0.5 MG TABLET PO PRN (21:10)
[2017-11-03] MEDS: CeFAZolin Pre 2,000 MG/100 ML 2,000 MG/100 ML BAG IVPB SCH ×3 (00:54→16:15)
[2017-11-03] MEDS: *HR* Heparin 5,000 UNIT/ML VIAL SQ SCH ×2 (06:35→17:24)
[2017-11-03] MEDS: Insulin LISPRO 300 UNITS/3 ML VIAL SQ SCH ×4 (08:36→21:18)
[2017-11-03] MEDS: Insulin DETEMIR 100 UNIT/ML X5UNITS SQ SCH ×2 (08:39→21:18)
[2017-11-03] MEDS: BuPROPion XL (24 HR) 150 MG TABLET PO SCH ×2 (08:42→17:24)
[2017-11-03] MEDS: metroNIDAZOLE 500 MG TABLET PO SCH (08:42)
[2017-11-03] MEDS: Lactobacillus 1 EACH CAP.SPRINK PO SCH (08:43)
[2017-11-03] MEDS: amLODIPine 5 MG TABLET PO SCH (08:43)
[2017-11-03] MEDS: Gabapentin 100 MG CAPSULE PO SCH ×3 (08:44→21:19)
--- NOTE | 2017-11-03 10:27 | Infectious Disease Progress No ---
Date of Encounter: 11/03/17 Time of Encounter: 10:26 - Assessment and Plan (1) Sepsis Current Visit: Yes Status: Resolved Severe sepsis Patient had 3 of 4 SIRS criteria on presentation with leukopenia, tachycardia, tachypnea Lactic acid was 2.9 on presentation, since normalized Source is right foot wound with osteomyelitis Causative organism MSSA Resolved at this time Blood cultures are negative Plan as below Qualifiers: Sepsis type: methicillin susceptible Staphylococcus aureus Qualified Code(s ): A41.01 - Sepsis due to Methicillin susceptible Staphylococcus aureus (2) Osteomyelitis Current Visit: Yes Status: Acute Osteomyelitis of right great toe and first metatarsal status post I&D and amputation Causative organism MSSA Source is likely diabetic foot wound Patient underwent surgical debridement on October 25 with operative evidence of osteomyelitis Intraoperative bone cultures positive for MSSA Plan for repeat surgical debridement this morning with possible wound VAC placement per podiatry Patient is currently being treated with IV Cefazolin 2 g every 8h Discontinue Flagyl asl anaerobic cultures negative after 5 days Patient has reported penicillin and sulfa allergies Awaiting atypical mycobacterium and fungal cultures given patient's recurrent non-healing lesions Duration will be based on clinical picture but likely 6 weeks Consult vascular access team Continue to monitor renal function and avoid nephrotoxins Dose antibiotics based on renal function Repeat inflammatory markers are improved As an outpatient patient will need weekly CBC, renal function panel, ESR, CRP Follow-up with infectious disease as an outpatient in 2 weeks after discharge Qualifiers: Osteomyelitis type: unspecified type Osteomyelitis location: foot Laterality: right Qualified Code(s): M86.9 - Osteomyelitis, unspecified (3) Diabetes mellitus Current Visit: Yes Status: Chronic Accuchecks have shown sugars in the high 100s low 200s Most recent Hemoglobin A1c was 6.8 on 10/22/16 Further management per primary Qualifiers: Diabetes mellitus type: type 2 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 wood casket assembler use Diabetes mellitus complication status: with skin complications Diabetes mellitus complication detail: with foot ulcer Qualified Code(s): E11.621 - Type 2 diabetes mellitus with foot ulcer; L97.509 - Non-pressure chronic ulcer of other part of unspecified foot with unspecified severity (4) Bicytopenia Current Visit: Yes Status: Acute Patient has leukopenia and anemia Patient reports that these are chronic for her and her white blood cell count is usually 1404-3277, CBC was not checked this morning Labs ordered for tomorrow AM Patient reports extensive workup including bone marrow biopsy in the No cause for her leukopenia was established Discussed with patient, recommend outpatient hematology workup given her persistent leukopenia with recurrent and difficult to treat infections despite good blood sugar control (5) Anxiety and depression Current Visit: Yes Status: Chronic - Subjective Interval history: Pt seen and examined. She states her right foot is just an ache instead of a pain now and she is able to walk on her heel. She denies any radiation or extension of swelling or erythema up her right leg. She denies any chest pain, shortness of breath, nausea, vomiting, fever, diarrhea. Infect Dis PN-Objective Data - Labs CBC & Chem 7: 11/04/17 08:51 11/04/17 08:51 Labs: Laboratory Results - last 24 hr 11/02/17 11/02/17 11/02/17 10:12 11:45 16:48 WBC 3.9 L D RBC 3.94 Hgb 11.8 D Hct 37.1 MCV 94.2 MCH 29.9 MCHC 31.8 RDW 15.2 H Plt Count 324 MPV 8.8 L Immature Gran % 0.5 Seg Neutrophils % 56.9 Lymphocytes % 30.7 Monocytes % 7.6 Eosinophils % 3.0 Basophils % 1.3 Neutrophils # 2.2 Lymphocytes # 1.2 Monocytes # 0.3 Eosinophils # 0.1 Basophils # 0.1 POC Glucose 268 H 224 H 11/02/17 11/03/17 20:36 07:22 WBC RBC Hgb Hct MCV MCH MCHC RDW Plt Count MPV Immature Gran % Seg Neutrophils % Lymphocytes % Monocytes % Eosinophils % Basophils % Neutrophils # Lymphocytes # Monocytes # Eosinophils # Basophils # POC Glucose 281 H 299 H Cultures: Cultures 10/25/17 16:00 Anaerobic Culture - Preliminary Right Foot At this time, no anaerobic growth is present. The culture will be finalized after 5 days of incubation. 10/29/17 10:15 Anaerobic Culture - Preliminary Right Foot At this time, no anaerobic growth is present. The culture will be finalized after 5 days of incubation. 10/29/17 10:12 Wound Culture - Final Right Foot Staphylococcus aureus 10/29/17 10:15 Acid Fast Stain - Final Other-Specify in Comments 10/25/17 16:00 Wound Culture - Final Right Foot Staphylococcus aureus Exam - Constitutional Vitals: Temp Pulse Resp BP Pulse Ox 97.5 F L 72 12 137/78 93 11/03/17 07:00 11/03/17 07:00 11/03/17 07:00 11/03/17 07:00 11/03/17 07:00 General appearance: cooperative, no acute distress - Head Head exam: Present: atraumatic, normocephalic - Respiratory Respiratory exam: Present: CTAB. Absent: rhonchi, wheezes - Cardiovascular Cardiovascular exam: Present: RRR. Absent: bradycardia, irregular rhythm, systolic murmur, tachycardia - GI/Abdominal GI/Abdominal exam: Present: normal bowel sounds, soft. Absent: tenderness - Extremities Exam Extremities exam: Absent: pedal edema - VTE Documentation of Mechanical Device: Intermittent pneumatic compression device Consult Discharge Plan - Plan Referrals: NONE,PCP [Primary Care Provider] - Prescriptions: Cefazolin Sodium in 0.9 % NaCl [Cefazolin-0.9% NaCl 2 G/10 ml] 2 gm IV Q8H #60 syringe - Attending Attestation I examined this patient and my medical decision-making was reviewed with the Resident Physician. I agree with the documented findings, disposition and treatment plan as described except to the extent set forth below.
[2017-11-03] MEDS: *HR* GlyBURIDE 5 MG TABLET PO SCH (16:15)
[2017-11-03] MEDS: *HR* OxyCODONE Immed Rel 5 MG TABLET PO PRN ×2 (16:15→23:35)
--- NOTE | 2017-11-03 18:42 | Internal Med Progress Note ---
Date of Encounter: 11/03/17 Time of Encounter: 11:00 - Assessment and plan (1) Osteomyelitis Current Visit: Yes Status: Acute Assessment and plan: Patient with osteomyelitis of right great toe and first metatarsal status post I &D and amputation secondary to MSSA due to diabetic foot wound Infectious disease following with recommendations to continue IV cefazolin with recommendations for a 6 week course as an outpatient Plan for discharge on 11/05/17 for home set up Qualifiers: Osteomyelitis type: unspecified type Osteomyelitis location: foot Laterality: right Qualified Code(s): M86.9 - Osteomyelitis, unspecified (2) Sepsis Current Visit: Yes Status: Resolved Assessment and plan: Resolved; secondary to the above Qualifiers: Sepsis type: methicillin susceptible Staphylococcus aureus Qualified Code(s ): A41.01 - Sepsis due to Methicillin susceptible Staphylococcus aureus (3) Diabetic foot ulcer Current Visit: Yes Status: Acute Assessment and plan: Right diabetic foot ulcer with CT showing possible osteomyelitis in first digit and first metatarsal. Podiatry on board, status post incision and drainage of right foot with amputation of great toe; received wound vac Qualifiers: Diabetic foot ulcer location: toe Diabetes mellitus type: type 2 Laterality: right Non-pressure ulcer stage: unspecified non-pressure ulcer stage Qualified Code(s): E11.621 - Type 2 diabetes mellitus with foot ulcer; L97.519 - Non-pressure chronic ulcer of other part of right foot with unspecified severity (4) Diabetes mellitus Current Visit: Yes Status: Chronic Assessment and plan: Continue basal insulin with sliding scale insulin. 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 Qualifiers: Hypertension type: essential hypertension Qualified Code(s): I10 - Essential (primary) hypertension (6) Hypothyroidism Current Visit: Yes Status: Chronic Assessment and plan: Continue home medications Qualifiers: Hypothyroidism type: unspecified Qualified Code(s): E03.9 - Hypothyroidism , unspecified (7) Anxiety and depression Current Visit: Yes Status: Chronic Assessment and plan: Resume home meds. - Time Spent With Patient Total time spent is greater than 50% in coordination of care (as documented) at patient's floor/unit and/or counseling patient: - Subjective Interval history: Patient postop day 5 debridement with MSSA growth in cultures. Awaiting IV antibiotics set up with home health - Constitutional Vitals: Temp Pulse Resp BP Pulse Ox 98.1 F 84 12 124/73 95 11/03/17 15:00 11/03/17 15:00 11/03/17 15:00 11/03/17 15:00 11/03/17 15:00 General appearance: Present: A&O X 3, no acute distress, answers questions appropriately - Respiratory Respiratory exam: Present: CTAB. Absent: accessory muscle use, rales, rhonchi, wheezes - Cardiovascular Cardiovascular exam: Present: RRR, +S1, +S2. Absent: diastolic murmur, gallop, rubs, systolic murmur Internal Medicine: Result - Labs CBC & Chem 7: 11/02/17 10:12 11/02/17 08:17 - ABG Interpretation ABG results: PT/INR, D-dimer PT 14.5 Seconds (9.4-12.1) H 10/25/17 00:41 - VTE Documentation of Mechanical Device: Intermittent pneumatic compression device Consult Discharge Plan - Plan Referrals: NONE,PCP [Primary Care Provider] -
[2017-11-03] MEDS: ceFAZolin 2,000 MG in 0.9 % Sodium Chloride 100 ML IVPB SCH (23:36)
[2017-11-04] MEDS: *HR* Heparin 5,000 UNIT/ML VIAL SQ SCH ×2 (05:27→16:53)
[2017-11-04] MEDS: Gabapentin 100 MG CAPSULE PO SCH ×3 (08:10→20:29)
[2017-11-04] MEDS: Lactobacillus 1 EACH CAP.SPRINK PO SCH (08:10)
[2017-11-04] MEDS: BuPROPion XL (24 HR) 150 MG TABLET PO SCH ×2 (08:10→16:53)
[2017-11-04] MEDS: Insulin LISPRO 300 UNITS/3 ML VIAL SQ SCH ×4 (08:11→20:33)
[2017-11-04] MEDS: amLODIPine 5 MG TABLET PO SCH (08:11)
[2017-11-04] MEDS: *HR* GlyBURIDE 5 MG TABLET PO SCH ×2 (08:11→16:53)
[2017-11-04] MEDS: Insulin DETEMIR 100 UNIT/ML X5UNITS SQ SCH ×2 (08:12→20:29)
[2017-11-04] MEDS: ceFAZolin 2,000 MG in 0.9 % Sodium Chloride 100 ML IVPB SCH ×3 (08:12→23:18)
[2017-11-04 09:10] LABS: Basophils # 0.1 K/mcL (0.0-0.2); Basophils % 1.4 %; Eosinophils # 0.2 K/mcL (0.0-0.6); Eosinophils % 4.4 %; Hematocrit 39.2 % (35.3-44.9); Hemoglobin 12.1 g/dL (11.5-15.4); Immature Granulocytes % 0.3 % (0-4); Lymphocytes # 1.2 K/mcL (0.6-4.6); Mean Corpuscular HGB Conc 30.9 g/dL (31.6-35.5); Mean Corpuscular Hemoglobin 29.1 pg (28.0-33.3); Mean Corpuscular Volume 94.2 fL (83.0-100.0); Mean Platelet Volume 9.5 fL (9.4-12.4); Monocytes # 0.3 K/mcL (0.0-1.3); Monocytes % 6.9 %; Platelet Count 263 K/mcL (140-400); Red Blood Count 4.16 M/mcL (3.82-4.97); Red Cell Distribution Width 15.1 % (11.5-14.5)
[2017-11-04 09:27] LABS: BUN/Creatinine Ratio 25 (6-26); Blood Urea Nitrogen 14 mg/dL (6-20); Calcium 9.4 mg/dL (8.6-10.3); Carbon Dioxide 28 mEq/L (23-29); Chloride 100 mEq/L (98-107); Glucose 202 mg/dL (70-105); Osmolality,Calculated 286 (280-300); Potassium 4.4 mEq/L (3.5-5.1); Sodium 135 mEq/L (136-145); eGFR For African Americans > 60 (> 60); eGFR For Non-African Americans > 60 (> 60)
--- NOTE | 2017-11-04 10:20 | Infectious Disease Progress No ---
Date of Encounter: 11/04/17 Time of Encounter: 10:10 - Assessment and Plan (1) Sepsis Status: Resolved Severe sepsis Patient had 3 of 4 SIRS criteria on presentation with leukopenia, tachycardia, tachypnea Lactic acid was 2.9 on presentation, since normalized Source is right foot wound with osteomyelitis Causative organism MSSA Resolved at this time Blood cultures are negative Plan as below Qualifiers: Sepsis type: methicillin susceptible Staphylococcus aureus Qualified Code(s ): A41.01 - Sepsis due to Methicillin susceptible Staphylococcus aureus (2) Osteomyelitis Status: Acute Osteomyelitis of right great toe and first metatarsal status post I&D and amputation Causative organism MSSA Source is likely diabetic foot wound Patient underwent surgical debridement on October 25 with operative evidence of osteomyelitis Intraoperative bone cultures positive for MSSA Patient is currently being treated with IV Cefazolin 2 g every 8h Discontinue Flagyl asl anaerobic cultures negative after 5 days Patient has reported penicillin and sulfa allergies Awaiting atypical mycobacterium and fungal cultures given patient's recurrent non-healing lesions Duration will be based on clinical picture but likely 6 weeks Consult vascular access team Continue to monitor renal function and avoid nephrotoxins Dose antibiotics based on renal function Repeat inflammatory markers are improved As an outpatient patient will need weekly CBC, renal function panel, ESR, CRP Follow-up with infectious disease as an outpatient in 2 weeks after discharge Qualifiers: Osteomyelitis type: unspecified type Osteomyelitis location: foot Laterality: right Qualified Code(s): M86.9 - Osteomyelitis, unspecified (3) Diabetes mellitus Status: Chronic Accuchecks have shown sugars in the high 100s low 200s Most recent Hemoglobin A1c was 6.8 on 10/22/16 Further management per primary Qualifiers: Diabetes mellitus type: type 2 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 local intermodal truck driver use Diabetes mellitus complication status: with skin complications Diabetes mellitus complication detail: with foot ulcer Qualified Code(s): E11.621 - Type 2 diabetes mellitus with foot ulcer; L97.509 - Non-pressure chronic ulcer of other part of unspecified foot with unspecified severity (4) Bicytopenia Status: Acute Patient has leukopenia and anemia Patient reports that these are chronic for her and her white blood cell count is usually [id number] Repeat CBC shows white count of 3.6 this morning Patient reports extensive workup including bone marrow biopsy in the 1980s No cause for her leukopenia was established Discussed with patient, recommend outpatient hematology workup given her persistent leukopenia with recurrent and difficult to treat infections despite good blood sugar control (5) Anxiety and depression Status: Chronic - Subjective Interval history: Pt seen and examined. She states her right foot is continuing to get better but states she has neuropathic pain down her left foot. She did have some episodes of nausea but did not vomit. Denies pain elsewhere, shortness of breath, fever, diarrhea. Infect Dis PN-Objective Data - Labs CBC & Chem 7: 11/04/17 08:51 11/04/17 08:51 Labs: Laboratory Results - last 24 hr 11/03/17 11/03/17 11/03/17 11:35 16:11 20:02 WBC RBC Hgb Hct MCV MCH MCHC RDW Plt Count MPV Immature Gran % Seg Neutrophils % Lymphocytes % Monocytes % Eosinophils % Basophils % Neutrophils # Lymphocytes # Monocytes # Eosinophils # Basophils # Sodium Potassium Chloride Carbon Dioxide BUN Creatinine Est GFR ( Amer) Est GFR (Non-Af Amer) BUN/Creatinine Ratio Glucose POC Glucose 327 H 184 H 246 H Calculated Osmolality Calcium 11/04/17 11/04/17 11/04/17 07:10 08:51 08:51 WBC 3.6 L RBC 4.16 Hgb 12.1 Hct 39.2 MCV 94.2 MCH 29.1 MCHC 30.9 L RDW 15.1 H Plt Count 263 MPV 9.5 Immature Gran % 0.3 Seg Neutrophils % 55.0 Lymphocytes % 32.0 Monocytes % 6.9 Eosinophils % 4.4 Basophils % 1.4 Neutrophils # 2.0 Lymphocytes # 1.2 Monocytes # 0.3 Eosinophils # 0.2 Basophils # 0.1 Sodium 135 L Potassium 4.4 Chloride 100 Carbon Dioxide 28 BUN 14 Creatinine 0.56 L Est GFR ( Amer) > 60 Est GFR (Non-Af Amer) > 60 BUN/Creatinine Ratio 25 Glucose 202 H POC Glucose 216 H Calculated Osmolality 286 Calcium 9.4 Cultures: Cultures 10/25/17 16:00 Anaerobic Culture - Preliminary Right Foot At this time, no anaerobic growth is present. The culture will be finalized after 5 days of incubation. 10/29/17 10:15 Anaerobic Culture - Preliminary Right Foot At this time, no anaerobic growth is present. The culture will be finalized after 5 days of incubation. 10/29/17 10:12 Wound Culture - Final Right Foot Staphylococcus aureus 10/29/17 10:15 Acid Fast Stain - Final Other-Specify in Comments 10/25/17 16:00 Wound Culture - Final Right Foot Staphylococcus aureus Exam - Constitutional Vitals: Temp Pulse Resp BP Pulse Ox 97.6 F 76 16 129/80 96 11/04/17 07:16 11/04/17 07:16 11/04/17 07:16 11/04/17 07:16 11/04/17 07:16 General appearance: cooperative, no acute distress - Head Head exam: Present: atraumatic, normocephalic - Respiratory Respiratory exam: Present: CTAB. Absent: accessory muscle use, respiratory distress, stridor, wheezes - Cardiovascular Cardiovascular exam: Present: RRR. Absent: bradycardia, irregular rhythm, systolic murmur, tachycardia - GI/Abdominal GI/Abdominal exam: Present: normal bowel sounds, soft. Absent: tenderness - Extremities Exam Extremities exam: Absent: pedal edema Additional comments: right foot wound vac in place no swelling, erythema above wrap - VTE Documentation of Mechanical Device: Intermittent pneumatic compression device Consult Discharge Plan - Plan Instructions: Negative Pressure Wound Therapy (DC) Referrals: Luis Carlos Ornelas DPM [Partnered Physician] - 11/12/17 8:15 am Margarita Mir CNP [Advanced Practice Nurse] - 11/23/17 9:00 am Prescriptions: OxyCODONE Immed Rel [Roxicodone 5 MG] 5 mg PO Q6HR PRN 4 Days #16 tablet PRN Reason: Severe Pain Ondansetron HCl [Zofran] 4 mg PO Q8HR PRN #20 tab PRN Reason: Abdominal Distention amLODIPine [Norvasc] 5 mg PO DAILY #60 tablet Cefazolin Sodium in 0.9 % NaCl [Cefazolin-0.9% NaCl 2 G/10 ml] 2 gm IV Q8H #60 syringe Metoprolol [Lopressor] 50 mg PO BID #60 tablet - Attending Attestation I examined this patient and my medical decision-making was reviewed with the Resident Physician. I agree with the documented findings, disposition and treatment plan as described except to the extent set forth below.
[2017-11-04] MEDS: Ondansetron 4 MG/2 ML VIAL IVP PRN (12:11)
--- NOTE | 2017-11-04 14:10 | Podiatry Progress Note ---
Date of Encounter: 11/04/17 Time of Encounter: 13:00 - Assessment and Plan (1) Foot ulcer Current Visit: No Status: Acute S/p Incision and drainage right foot with amputation of great toe and incision to bone cortex for osteomyelitis of the first metatarsal of the right foot by Dr. Ornelas on 10/25/17. S/p Irrigation and debridement of wound, right foot. Incision to bone cortex for osteomyelitis, right foot on 10/29/[address] Ornelas. WBC: 3.6, ESR: 117, CRP: 9. Plan: Antibiotics per ID. Erythema has improved. Wound vac changed at bedside and patient will require wound vac post discharge. Wound vac paperwork completed and turned into medical case worker. Wound vac: cleanse wound with saline, pat dry, appy [place] skin barrier prep to surrounding skin, apply drape, apply small black [place] wound sponge underneath retention sutures, connect to 125 mmhg low continuous suction. Changed every 72 hours. Patient will need to remain weightbearing to the heel only of the affected lower extremity. Patient okay to be discharged tomorrow 11/05/17. Will order post op xray today of right foot. Follow up with Dr. Ornelas in Podiatry clinic one week after discharge from hospital. 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: without supervisor policy change clerks use Diabetes mellitus complication status: with skin complications Diabetes mellitus complication detail: with foot ulcer Qualified Code(s): E11.621 - Type 2 diabetes mellitus with foot ulcer; L97.509 - Non-pressure chronic ulcer of other part of unspecified foot with unspecified severity (3) Osteomyelitis Current Visit: Yes Status: Acute Qualifiers: Osteomyelitis type: unspecified type Osteomyelitis location: foot Laterality: right Qualified Code(s): M86.9 - Osteomyelitis, unspecified Subjective Principal diagnosis: Status post amputation of the hallux and first ray resection Interval history: S/p Incision and drainage right foot with amputation of great toe and incision to bone cortex for osteomyelitis of the first metatarsal of the right foot by Dr. Ornelas on 10/25/17. S/p Irrigation and debridement of wound, right foot. Incision to bone cortex for osteomyelitis, right foot on 10/29/[address] Ornelas. Patient is sitting up in bed. Wound vac intact to the right foot. Patient denies any pain, fever or chills overnight. Objective - Vital Signs Vital Signs: Vital Signs Temp Pulse Resp BP Pulse Ox 11/04/17 11:14 97.8 F 71 16 114/72 94 11/04/17 07:16 97.6 F 76 16 129/80 96 11/04/17 03:57 98.9 F 84 16 131/76 94 11/03/17 20:05 98.3 F 81 16 131/76 94 11/03/17 15:00 98.1 F 84 12 124/73 95 Intake and Output 11/03/17 11/04/17 11/04/17 23:59 07:59 15:59 Intake Total 480 / 480 300 / 300 Output Total 520 / 520 2200 / 2200 Balance -40 / -40 -1900 / -1900 Intake: IV Fluids 100 / 100 Ancef 2,000 MG In 0.9 % Sodium 100 / 100 Chloride 100 ML @ 200 mls/hr IVPB Q8H [facility] Rx#:[id number] Oral 480 / 480 200 / 200 Output: Urine 500 / 500 2200 / 2200 Wound Drainage 20 / 20 0 / 0 Right Foot 20 / 20 0 / 0 Other: Meal Dinner Percent of Meal Consumed 100% Stool Size Moderate Stool Consistency formed Stool Color Brown # Bowel Movements 1 Weight 97.658 kg Blood Glucose* 246 216 308 Patient Weight 11/04/17 23:59 Weight 97.658 kg - Exam Exam: General appearance: alert awake oriented X 3. Calm and pleasant, tearful. Vascular: Right: Pedal pulses +1/4 DP/PT , No evidence of cyanosis, pallor or rubor, Edema graded at 1+/4, Skin Temperature warm, No calf pain with manual compression. capillary refill time is immediate to digits. Neurologic: Sensation diminished with light touch to foot. . Postop Exam: S/P Retention sutures intact to incision line, full thickness surgical wound measuring 6 cm in length x 6.8 cm in width x 0.9 cm in depth. Base of wound with 100 % red granulation tissue, 50 mls of serosanguineous drainage, no pus, no odor, light periwound erythema, no streaking. - Lab Result Diagrams: 11/04/17 08:51 11/04/17 08:51 Labs: Abnormal lab results WBC 3.6 K/mcL (4.3-11.1) L 11/04/17 08:51 MCHC 30.9 g/dL (31.6-35.5) L 11/04/17 08:51 RDW 15.1 % (11.5-14.5) H 11/04/17 08:51 Nucleated RBCs/100 WBC 1.4 /100 WBC (0) H 10/25/17 00:41 ESR 117 mm/hr (0-15) H 11/02/17 08:17 PT 14.5 Seconds (9.4-12.1) H 10/25/17 00:41 Sodium 135 mEq/L (136-145) L 11/04/17 08:51 Creatinine 0.56 mg/dL (0.60-1.20) L 11/04/17 08:51 Glucose 202 mg/dL (70-105) H 11/04/17 08:51 POC Glucose 308 mg/dL (70-99) H 11/04/17 11:24 Vancomycin Trough 13 mcg/mL (5-10) H 10/27/17 22:46 Microbiology, Last 48 Hours 10/29/17 10:15 Anaerobic Culture - Final Right Foot No anaerobes were recovered. - VTE Documentation of Mechanical Device: Intermittent pneumatic compression device Consult Discharge Plan - Plan Referrals: NONE,PCP [Primary Care Provider] - Prescriptions: Cefazolin Sodium in 0.9 % NaCl [Cefazolin-0.9% NaCl 2 G/10 ml] 2 gm IV Q8H #60 syringe
[2017-11-04] MEDS: *HR* Metformin 500 MG TABLET PO SCH (16:53)
--- NOTE | 2017-11-04 18:25 | Discharge Summary ---
- NOTES TO OUTPATIENT PROVIDER Notes to Outpatient Provider: Patient will need weekly CBC, renal function panel , ESR, CRP Orders not resulted at time of discharge: Pending orders 10/25/17 16:00 Culture,Anaerobic [RM] Routine 10/29/17 10:15 AFB Culture, Body Fluid [TB] Routine AFB Smear [TB] Routine Fungal Culture [MYC] Routine 11/03/17 09:55 Basic Metabolic Panel Routine Complete Blood Count [HEME] Routine 11/04/17 16:49 XR foot 3V RT [XR] Routine Date of Encounter: 11/04/17 Time of Encounter: 11:00 - Discharge Diagnosis (1) Osteomyelitis Priority: Primary Status: Acute Qualifiers: Osteomyelitis type: unspecified type Osteomyelitis location: foot Laterality: right Qualified Code(s): M86.9 - Osteomyelitis, unspecified (2) Sepsis Priority: Primary Status: Resolved Qualifiers: Sepsis type: methicillin susceptible Staphylococcus aureus Qualified Code(s ): A41.01 - Sepsis due to Methicillin susceptible Staphylococcus aureus (3) Diabetic foot ulcer Priority: Primary Status: Acute Qualifiers: Diabetic foot ulcer location: toe Diabetes mellitus type: type 2 Laterality: right Non-pressure ulcer stage: unspecified non-pressure ulcer stage Qualified Code(s): E11.621 - Type 2 diabetes mellitus with foot ulcer; L97.519 - Non-pressure chronic ulcer of other part of right foot with unspecified severity (4) Diabetes mellitus Priority: Secondary Status: Chronic Qualifiers: Diabetes mellitus type: type 2 Diabetes mellitus terminal supervisor insulin use: without terminal supervisor use Diabetes mellitus complication status: with skin complications Diabetes mellitus complication detail: with foot ulcer Qualified Code(s): E11.621 - Type 2 diabetes mellitus with foot ulcer; L97.509 - Non-pressure chronic ulcer of other part of unspecified foot with unspecified severity (5) Hypertension Priority: Secondary Status: Chronic Qualifiers: Hypertension type: essential hypertension Qualified Code(s): I10 - Essential (primary) hypertension (6) Hypothyroidism Priority: Secondary Status: Chronic Qualifiers: Hypothyroidism type: unspecified Qualified Code(s): E03.9 - Hypothyroidism , unspecified (7) Anxiety and depression Priority: Secondary Status: Chronic Hospital course: Patient is a 57-year-old female with past medical history significant for diabetes with neuropathy, hypothyroidism and mood disorder who presents to the ER on 10/24/17 due to right foot pain. Patient said she had a chronic right foot diabetic ulcer that was infected but had been improving for the past 11 days prior to admission. Patient has seen podiatry as outpatient and was prescribed by wilder Morales. Patient said after and about treatment, the infection improved. However, after 7 days of antibiotic course, antibiotic was discontinued and the infection had gotten worse. In the emergency room, podiatry consult Dr. Ornelas saw patient and the plan for surgery of debridement. During patients hospital stay patient found to have osteomyelitis of right great toe and first metatarsal status post I&D and amputation secondary to MSSA due to diabetic foot wound. Infectious disease was consulted with recommendations for IV antibiotics. Patient will be discharged to complete a weeks week course of IV Ancef to follow-up with podiatry. - Time Spent with Patient Total time spent providing and/or coordinating discharge services: Less than 30 minutes - Discharge Medications Prescriptions: OxyCODONE Immed Rel [Roxicodone 5 MG] 5 mg PO Q6HR PRN 4 Days #16 tablet PRN Reason: Severe Pain Ondansetron HCl [Zofran] 4 mg PO Q8HR PRN #20 tab PRN Reason: Abdominal Distention amLODIPine [Norvasc] 5 mg PO DAILY #60 tablet Cefazolin Sodium in 0.9 % NaCl [Cefazolin-0.9% NaCl 2 G/10 ml] 2 gm IV Q8H #60 syringe Metoprolol [Lopressor] 50 mg PO BID #60 tablet Home Medications: Bupropion HCl [Wellbutrin Xl] 300 mg PO QAM 11/13/15 [History] Citalopram [CeleXA] 20 mg PO DAILY 11/13/15 [History] Empagliflozin/Linagliptin [Glyxambi 25 mg-5 mg Tablet] 1 tab PO DAILY 11/13/15 [ History] Gabapentin [Neurontin] 100 mg PO TID 11/13/15 [History] Levothyroxine [Synthroid] 100 mcg PO DAILY 11/13/15 [History] glyBURIDE [GlyBURIDE] 10 mg PO BID 11/13/15 [History] BuPROPion XL (24 HR) [Wellbutrin Xl] 150 mg PO QPM 07/09/16 [History] Metformin HCl [Glucophage] 1,000 mg PO BID 07/09/16 [History] clonazePAM [Klonopin] 0.5 mg PO BID PRN #30 tablet 07/10/16 [Rx] Cefazolin Sodium in 0.9 % NaCl [Cefazolin-0.9% NaCl 2 G/10 ml] 2 gm IV Q8H #60 syringe 11/04/17 [Rx] Metoprolol [Lopressor] 50 mg PO BID #60 tablet 11/04/17 [Rx] Ondansetron HCl [Zofran] 4 mg PO Q8HR PRN #20 tab 11/04/17 [Rx] OxyCODONE Immed Rel [Roxicodone 5 MG] 5 mg PO Q6HR PRN 4 Days #16 tablet [Rx] amLODIPine [Norvasc] 5 mg PO DAILY #60 tablet 11/04/17 [Rx] Allergies/Adverse Reactions: 3 Allergy/AdvReac Type Severity Reaction Status Date / Time Penicillins [PCN] Allergy Rash Verified 10/28/16 06:56 Sulfa (Sulfonamide Allergy Rash Verified 10/28/16 06:56 Antibiotics) Date of admission: 10/24/17 22:58 Primary care physician: PCP NONE Consults: 10/27/17 11:15 Consult to Gas Meter Reader [CONS] Routine Reason for SW Consult: Discharge planning, needs right foot dressing and wound vac 10/27/17 11:16 Consult to Occupational Therapy [CONS] Routine Comment: Evaluate, develop and implement POC Reason for Consult: Right foot surgery for diabetic ulcer Does patient have active BEDREST order?: No Is patient medically & hemodynamically stable?: Yes Patient assessed for mobility or mobilized this visit?: Yes Consult to Physical Therapy [CONS] Routine Comment: Evaluate, develop and implement POC Reason for Consult: Right foot surgery for diabetic ulcer Does patient have active BEDREST order?: No Is patient medically & hemodynamically stable?: Yes Patient assessed for mobility or mobilized this visit?: Yes 10/28/17 11:03 Consult to Infectious Diseases [CONS] Routine Consulting Provider: Infectious Disease Nik[place] Reason for Consult: Right infected diabetic foot ulcer and osteomyelitis s/p 1st toe amputation Call Completed: No 10/29/17 08:21 Consult to Invasive Line Access Team [CONS] Routine Reason for Consult: home atb Line Type: Midline - Constitutional Vitals: Temp Pulse Resp BP Pulse Ox 97.8 F 80 16 124/77 94 11/04/17 15:21 11/04/17 15:21 11/04/17 15:21 11/04/17 15:21 11/04/17 15:21 General appearance: Present: A&O X 3, no acute distress, answers questions appropriately - Respiratory Respiratory exam: Present: CTAB. Absent: accessory muscle use, rales, rhonchi, wheezes - Cardiovascular Cardiovascular exam: Present: RRR, +S1, +S2. Absent: diastolic murmur, gallop, rubs, systolic murmur - Patient Status Disposition: Home Health Service Condition: Fair - Discharge Instructions Follow Up With: NONE,PCP [Primary Care Provider] - - VTE Documentation of Mechanical Device: Intermittent pneumatic compression device
--- NOTE | 2017-11-04 18:26 | Physician Discharge Referral ---
Home Health/Hosp Referral Info Transfer to: Home Health - Diagnosis (1) Osteomyelitis Status: Acute (2) Sepsis Status: Resolved (3) Diabetic foot ulcer Status: Acute (4) Diabetes mellitus Status: Chronic (5) Hypertension Status: Chronic (6) Hypothyroidism Status: Chronic (7) Anxiety and depression Status: Chronic - Respiratory Orders Smoking Cessation: Smoking cessation has been advised. For more information, call the [place] Tobacco Quit Line at 7-951-CBDT-NOW. - Services Needed Following services are medically necessary services: Nursing, Home Infusion - Transfer Medications Prescriptions: OxyCODONE Immed Rel [Roxicodone 5 MG] 5 mg PO Q6HR PRN 4 Days #16 tablet PRN Reason: Severe Pain Ondansetron HCl [Zofran] 4 mg PO Q8HR PRN #20 tab PRN Reason: Abdominal Distention amLODIPine [Norvasc] 5 mg PO DAILY #60 tablet Cefazolin Sodium in 0.9 % NaCl [Cefazolin-0.9% NaCl 2 G/10 ml] 2 gm IV Q8H #60 syringe Metoprolol [Lopressor] 50 mg PO BID #60 tablet Home Medications: Bupropion HCl [Wellbutrin Xl] 300 mg PO QAM 11/13/15 [History] Citalopram [CeleXA] 20 mg PO DAILY 11/13/15 [History] Empagliflozin/Linagliptin [Glyxambi 25 mg-5 mg Tablet] 1 tab PO DAILY 11/13/15 [ History] Gabapentin [Neurontin] 100 mg PO TID 11/13/15 [History] Levothyroxine [Synthroid] 100 mcg PO DAILY 11/13/15 [History] glyBURIDE [GlyBURIDE] 10 mg PO BID 11/13/15 [History] BuPROPion XL (24 HR) [Wellbutrin Xl] 150 mg PO QPM 07/09/16 [History] Metformin HCl [Glucophage] 1,000 mg PO BID 07/09/16 [History] clonazePAM [Klonopin] 0.5 mg PO BID PRN #30 tablet 07/10/16 [Rx] Cefazolin Sodium in 0.9 % NaCl [Cefazolin-0.9% NaCl 2 G/10 ml] 2 gm IV Q8H #60 syringe 11/04/17 [Rx] Metoprolol [Lopressor] 50 mg PO BID #60 tablet 11/04/17 [Rx] Ondansetron HCl [Zofran] 4 mg PO Q8HR PRN #20 tab 11/04/17 [Rx] OxyCODONE Immed Rel [Roxicodone 5 MG] 5 mg PO Q6HR PRN 4 Days #16 tablet [Rx] amLODIPine [Norvasc] 5 mg PO DAILY #60 tablet 11/04/17 [Rx] Allergies/Adverse Reactions: 3 Allergy/AdvReac Type Severity Reaction Status Date / Time Penicillins [PCN] Allergy Rash Verified 10/28/16 06:56 Sulfa (Sulfonamide Allergy Rash Verified 10/28/16 06:56 Antibiotics) Certification: Further, I certify that my clinical findings support that this patient is homebound (i.e. absences from home require considerable and taxing effort and are for medical reasons or gnosticist services or infrequently or short duration when for other reasons) because: Homebound Reason: Patient requires assistance of a person or device to safely leave home Attestation: My signature below is to certify that this patient is under my care and that I, or nurse practitioner, or a physician's assistant professor of life sciences working with me, has a face-to -face encounter with this patient.
[2017-11-05] MEDS: *HR* Heparin 5,000 UNIT/ML VIAL SQ SCH (06:04)
[2017-11-05 07:39] VITALS: BP 126/72
[2017-11-05] MEDS: Insulin LISPRO 300 UNITS/3 ML VIAL SQ SCH ×2 (08:23→13:08)
[2017-11-05] MEDS: Insulin DETEMIR 100 UNIT/ML X5UNITS SQ SCH (08:24)
[2017-11-05] MEDS: ceFAZolin 2,000 MG in 0.9 % Sodium Chloride 100 ML IVPB SCH (08:24)
[2017-11-05] MEDS: BuPROPion XL (24 HR) 150 MG TABLET PO SCH (08:25)
[2017-11-05] MEDS: *HR* GlyBURIDE 5 MG TABLET PO SCH (08:25)
[2017-11-05] MEDS: *HR* Metformin 500 MG TABLET PO SCH (08:25)
[2017-11-05] MEDS: amLODIPine 5 MG TABLET PO SCH (08:25)
[2017-11-05] MEDS: Lactobacillus 1 EACH CAP.SPRINK PO SCH (08:25)
[2017-11-05] MEDS: Gabapentin 100 MG CAPSULE PO SCH (08:25)
--- NOTE | 2017-11-05 09:28 | Infectious Disease Progress No ---
Date of Encounter: 11/05/17 Time of Encounter: 09:27 - Assessment and Plan (1) Sepsis Status: Resolved Severe sepsis Patient had 3 of 4 SIRS criteria on presentation with leukopenia, tachycardia, tachypnea Lactic acid was 2.9 on presentation, since normalized Source is right foot wound with osteomyelitis Causative organism MSSA Resolved at this time Blood cultures are negative Plan as below Qualifiers: Sepsis type: methicillin susceptible Staphylococcus aureus Qualified Code(s ): A41.01 - Sepsis due to Methicillin susceptible Staphylococcus aureus (2) Osteomyelitis Status: Acute Osteomyelitis of right great toe and first metatarsal status post I&D and amputation Causative organism MSSA Source is likely diabetic foot wound Patient underwent surgical debridement on October 25 with operative evidence of osteomyelitis Intraoperative bone cultures positive for MSSA Patient is currently being treated with IV Cefazolin 2 g every 8h Discontinue Flagyl asl anaerobic cultures negative after 5 days Patient has reported penicillin and sulfa allergies Awaiting atypical mycobacterium and fungal cultures given patient's recurrent non-healing lesions Duration will be based on clinical picture but likely 6 weeks Consult vascular access team Continue to monitor renal function and avoid nephrotoxins Dose antibiotics based on renal function Repeat inflammatory markers are improved As an outpatient patient will need weekly CBC, renal function panel, ESR, CRP Follow-up with infectious disease as an outpatient in 2 weeks after discharge Qualifiers: Osteomyelitis type: unspecified type Osteomyelitis location: foot Laterality: right Qualified Code(s): M86.9 - Osteomyelitis, unspecified (3) Diabetes mellitus Status: Chronic Accuchecks have shown sugars in the high 100s low 200s Most recent Hemoglobin A1c was 6.8 on 10/22/16 Further management per primary Qualifiers: Diabetes mellitus type: type 2 Diabetes mellitus edger operator insulin use: without edger operator use Diabetes mellitus complication status: with skin complications Diabetes mellitus complication detail: with foot ulcer Qualified Code(s): E11.621 - Type 2 diabetes mellitus with foot ulcer; L97.509 - Non-pressure chronic ulcer of other part of unspecified foot with unspecified severity (4) Bicytopenia Status: Acute Patient has leukopenia and anemia Patient reports that these are chronic for her and her white blood cell count is usually [id number] Repeat CBC shows white count of 3.6 this morning Patient reports extensive workup including bone marrow biopsy in the 1980s No cause for her leukopenia was established Discussed with patient, recommend outpatient hematology workup given her persistent leukopenia with recurrent and difficult to treat infections despite good blood sugar control (5) Anxiety and depression Status: Chronic - Subjective Interval history: Pt seen and examined. She states her right foot only aches intermittently and she is able to walk on her heel. She still complains of nausea but denies vomiting. Denies chest pain, shortness of breath, fever, diarrhea. Infect Dis PN-Objective Data - Labs CBC & Chem 7: 11/04/17 08:51 11/04/17 08:51 Labs: Laboratory Results - last 24 hr 11/04/17 11/04/17 11/04/17 08:51 11:21 11:24 Sodium 135 L Potassium 4.4 Chloride 100 Carbon Dioxide 28 BUN 14 Creatinine 0.56 L Est GFR ( Amer) > 60 Est GFR (Non-Af Amer) > 60 BUN/Creatinine Ratio 25 Glucose 202 H POC Glucose 311 H 308 H Calculated Osmolality 286 Calcium 9.4 11/04/17 11/04/17 16:29 20:32 Sodium Potassium Chloride Carbon Dioxide BUN Creatinine Est GFR ( Amer) Est GFR (Non-Af Amer) BUN/Creatinine Ratio Glucose POC Glucose 235 H 322 H Calculated Osmolality Calcium Cultures: Cultures 10/29/17 10:15 Anaerobic Culture - Final Right Foot No anaerobes were recovered. 10/25/17 16:00 Anaerobic Culture - Preliminary Right Foot At this time, no anaerobic growth is present. The culture will be finalized after 5 days of incubation. 10/29/17 10:12 Wound Culture - Final Right Foot Staphylococcus aureus 10/29/17 10:15 Acid Fast Stain - Final Other-Specify in Comments 10/25/17 16:00 Wound Culture - Final Right Foot Staphylococcus aureus - Impressions Impressions Foot X-Ray 11/04/17 16:49 IMPRESSION: Postsurgical change of amputation level of the 1st metatarsal. Soft tissue defect at the operative site. Surgical margin is slightly irregular. Recommend correlation with operative report. D/ / Rg Gan MD / Rg Gan MD Interpreting Provider: Rg Gan MD Exam - Constitutional Vitals: Temp Pulse Resp BP Pulse Ox 97.6 F 78 16 126/72 94 11/05/17 07:29 11/05/17 07:29 11/05/17 07:29 11/05/17 07:29 11/05/17 07:29 General appearance: cooperative, no acute distress - Respiratory Respiratory exam: Present: CTAB. Absent: rhonchi, stridor, wheezes - Cardiovascular Cardiovascular exam: Present: RRR. Absent: irregular rhythm, systolic murmur, tachycardia - GI/Abdominal GI/Abdominal exam: Present: normal bowel sounds, soft. Absent: tenderness - Extremities Exam Extremities exam: Absent: pedal edema Additional comments: wound vac on right foot, minimal drainage - VTE Documentation of Mechanical Device: Intermittent pneumatic compression device Consult Discharge Plan - Plan Instructions: Negative Pressure Wound Therapy (DC) Referrals: Luis Carlos Ornelas DPM [Partnered Physician] - 11/12/17 8:15 am Margarita Mir CNP [Advanced Practice Nurse] - 11/23/17 9:00 am Prescriptions: OxyCODONE Immed Rel [Roxicodone 5 MG] 5 mg PO Q6HR PRN 4 Days #16 tablet PRN Reason: Severe Pain Ondansetron HCl [Zofran] 4 mg PO Q8HR PRN #20 tab PRN Reason: Abdominal Distention amLODIPine [Norvasc] 5 mg PO DAILY #60 tablet Cefazolin Sodium in 0.9 % NaCl [Cefazolin-0.9% NaCl 2 G/10 ml] 2 gm IV Q8H #60 syringe Metoprolol [Lopressor] 50 mg PO BID #60 tablet - Attending Attestation I examined this patient and my medical decision-making was reviewed with the Resident Physician. I agree with the documented findings, disposition and treatment plan as described except to the extent set forth below.
[2017-11-05] MEDS: clonazePAM 0.5 MG TABLET PO PRN (13:10)
== END 2017-11-05 14:00 | disposition home health service (06) | DRG 853 ==
LOC: EMEROO 19:20 → 3ANU 19:20 → SUATTDRO 22:58
PROVIDERS: ADMIT Internal Medicine; ATTEND Hospitalist

== ENCOUNTER 2018-03-02 09:20 | Inpatient (IN) ==
--- NOTE | 2018-03-02 09:49 | Emergency Department Note ---
Disposition Clinical Impression: Leukopenia Qualifiers: Leukopenia type: unspecified Qualified Code(s): D72.819 - Decreased white blood cell count, unspecified Foot ulcer, right Qualifiers: Non-pressure ulcer stage: with necrosis of muscle Qualified Code(s): L97.513 - Non-pressure chronic ulcer of other part of right foot with necrosis of muscle Disposition: Admitted As Inpatient Condition: Good Forms: ED Satisfaction Letter Time of Disposition: 11:09 General Adult HPI - General Chief complaint: ED Wound/Laceration Stated complaint: Right foot infection Time Seen by Provider: 03/02/18 09:24 Source: patient Mode of arrival: private vehicle Nursing Notes Reviewed: Yes Vital Signs Reviewed: Yes - History of Present Illness HPI Narrative: Marylu is a pleasant 57-year-old female. She presents to the emergency room following a visit at wound care were she was seen by Dr. Christiansen. Marylu notes that she is battling a chronic infection in her right foot. She notes history of a right how this amputation on 2017. She states that she received IV vancomycin until November 2017. She notes that she is currently on oral Levaquin. She states that she has a "tightness" in the right foot that has been there for some time. She rates her pain at a 3 out of 10. She denies pain in the left leg or foot pain in the right knee or hip. She states that she has decreased sensation in the right midfoot distally. She denies any other concerns specifically fevers chest pain shortness of breath nausea vomiting. She notes history of depression and states that she takes medication for this. Onset (ago): month(s) Location: lower extremity Pain Scale: 3 Quality: other (tightness) - Related Data Home Medications Medication Instructions Recorded Confirmed Bupropion HCl [Wellbutrin Xl] 300 mg PO QAM 11/13/15 10/25/17 Citalopram [CeleXA] 20 mg PO DAILY 11/13/15 10/25/17 Empagliflozin/Linagliptin 1 tab PO DAILY 11/13/15 10/25/17 [Glyxambi 25 mg-5 mg Tablet] Gabapentin [Neurontin] 100 mg PO TID 11/13/15 10/25/17 Levothyroxine [Synthroid] 100 mcg PO DAILY 11/13/15 10/25/17 glyBURIDE [GlyBURIDE] 10 mg PO BID 11/13/15 10/25/17 BuPROPion XL (24 HR) [Wellbutrin 150 mg PO QPM 07/09/16 10/25/17 Xl] Metformin HCl [Glucophage] 1,000 mg PO BID 07/09/16 10/25/17 Previous Rx's Medication Instructions Recorded clonazePAM [Klonopin] 0.5 mg PO BID PRN #30 tablet 07/10/16 Cefazolin Sodium in 0.9 % NaCl 2 gm IV Q8H #60 syringe 11/04/17 [Cefazolin-0.9% NaCl 2 G/10 ml] Metoprolol [Lopressor] 50 mg PO BID #60 tablet 11/04/17 Ondansetron HCl [Zofran] 4 mg PO Q8HR PRN #20 tab 11/04/17 OxyCODONE Immed Rel [Roxicodone 5 5 mg PO Q6HR PRN 4 Days #16 tablet 11/04/17 MG] amLODIPine [Norvasc] 5 mg PO DAILY #60 tablet 11/04/17 Allergies Allergy/AdvReac Type Severity Reaction Status Date / Time Penicillins [PCN] Allergy Rash Verified 03/02/18 09:24 Sulfa (Sulfonamide Allergy Rash Verified 03/02/18 09:24 Antibiotics) All systems ED: reviewed and negative except as stated. Review of Systems: As Per HPI Past Medical History - Past Medical History Medical history: Reports: diabetes, hypertension, thyroid disease Surgical history: Reports: hysterectomy, orthopedic, other, sinus surgery, other Psychiatric history: Reports: anxiety, depression - Social History Smoking Status: Never smoker Smokeless Tobacco Status: No Alcohol use: Reports: none Drug use: Reports: none Physical Exam - General Limitations: no limitations General appearance: alert, in no apparent distress - Head Head exam: atraumatic - Eye Eye exam: Present: normal appearance, PERRL, EOMI - ENT ENT exam: normal exam - Neck Neck exam: Present: normal inspection - Chest Chest inspection: Present: normal inspection - Respiratory Respiratory exam: Present: normal lung sounds bilaterally, respiratory distress - Cardiovascular Cardiovascular exam: Present: regular rate - Abdominal Exam Abdominal exam: Present: soft, Non-Tender - Expanded Lower Extremity Exam Hip/Pelvis exam: Present: normal inspection Upper leg exam: Present: normal inspection Knee exam: Present: erythema (Mild erythema to medial rates leg just distal to the knee. No signs of skin sloughing or petechia. Erythema is blanchable. Well-defined without streaking.) Lower leg exam: Present: normal inspection (Soft calf, no breaks to skin.) Ankle exam: Present: normal inspection, full ROM Foot/toe exam: Present: other (Right hallux surgically amputated. Open wound was signs of infection. No pus draining from wound. Well demarcated erythematous line right mid foot with distal redness. Patient does not have sensation in this erythematous area. She has full range of motion with her right ankle. There is no sloughing of the epidermal layer however there is white crust around where the right hallux was surgically amputated. ) - Neurological Exam Neurological exam: Present: alert, oriented X3 - Psychiatric Psychiatric exam: Present: other (Tearful at times. Patient notes that she thought she had the infection under control and it is upset that she now is facing more of an amputation.) - Skin Skin exam: Present: erythema Course Vital Signs Temperature 97.9 F 03/02/18 09:22 Pulse Rate 93 03/02/18 09:22 Respiratory Rate 16 03/02/18 09:22 Blood Pressure 126/78 03/02/18 09:22 O2 Sat by Pulse Oximetry 96 03/02/18 09:22 Temperature 97.9 F 03/02/18 09:42 Pulse Rate 93 03/02/18 09:42 Respiratory Rate 16 03/02/18 09:42 Blood Pressure 126/78 03/02/18 09:42 O2 Sat by Pulse Oximetry 96 03/02/18 09:42 Oxygen Delivery Oxygen Delivery Room Air Medical Decision Making - [facility] Narrative Medical decision making narrative: Discussed case in the ED with Dr. Christiansen. Patient has been on Levaquin as noted above. He requested heme consult and an ID consult. He notes that she has had wound cultures taken in clinic and will take a deep tissue culture in the OR tomorrow. He requested admission to baseline labs EKG chest x-ray for preop clearance. Patient as well as Dr. Christiansen she does have a chronic leukopenia. She states that this is been going on for over 20 years and she has been worked up for it in the past without obvious source - Medical Records Medical records reviewed: Yes I reviewed the patient's medical records. - Lab Data Result diagrams: 03/02/18 09:53 03/02/18 09:53 Lab Results 03/02/18 03/02/18 Range/Units 09:53 09:53 WBC 1.8 L (4.3-11.1) K/mcL RBC 4.87 (3.82-4.97) M/mcL Hgb 13.2 (11.5-15.4) g/dL Hct 42.9 (35.3-44.9) % MCV 88.1 (83.0-100.0) fL MCH 27.1 L (28.0-33.3) pg MCHC 30.8 L (31.6-35.5) g/dL RDW 14.9 H (11.5-14.5) % Plt Count 235 (140-400) K/mcL MPV 8.8 L (9.4-12.4) fL Immature Gran % 0.0 (0-4) % Seg Neutrophils % 35.7 % Lymphocytes % 39.6 % Monocytes % 18.1 % Eosinophils % 5.5 % Basophils % 1.1 % Neutrophils # 0.6 L (1.6-8.9) K/mcL Lymphocytes # 0.7 (0.6-4.6) K/mcL Monocytes # 0.3 (0.0-1.3) K/mcL Eosinophils # 0.1 (0.0-0.6) K/mcL Basophils # 0.0 (0.0-0.2) K/mcL Platelet Estimate Normal (Normal) Sodium 135 L (136-145) mEq/L Potassium 4.5 (3.5-5.1) mEq/L Chloride 98 (98-107) mEq/L Carbon Dioxide 28 (23-29) mEq/L BUN 13 (6-20) mg/dL Creatinine 0.71 (0.60-1.20) mg/dL Est GFR ( Amer) > 60 (> 60) Est GFR (Non-Af Amer) > 60 (> 60) BUN/Creatinine Ratio 18 (6-26) Glucose 176 H (70-105) mg/dL Calculated Osmolality 284 (280-300) Calcium 9.9 (8.6-10.3) mg/dL
[2018-03-02] MEDS ORDERED: 0.9 % Sodium Chloride 1,000 ML IVC ONE (10:00)
[2018-03-02 10:10] LABS: Basophils % 1.1 %; Eosinophils # 0.1 K/mcL (0.0-0.6); Eosinophils % 5.5 %; Hematocrit 42.9 % (35.3-44.9); Hemoglobin 13.2 g/dL (11.5-15.4); Lymphocytes # 0.7 K/mcL (0.6-4.6); Lymphocytes % 39.6 %; Mean Corpuscular HGB Conc 30.8 g/dL (31.6-35.5); Mean Corpuscular Hemoglobin 27.1 pg (28.0-33.3); Mean Corpuscular Volume 88.1 fL (83.0-100.0); Mean Platelet Volume 8.8 fL (9.4-12.4); Monocytes # 0.3 K/mcL (0.0-1.3); Monocytes % 18.1 %; Platelet Count 235 K/mcL (140-400); Red Blood Count 4.87 M/mcL (3.82-4.97); Red Cell Distribution Width 14.9 % (11.5-14.5); Segmented Neutrophils % 35.7 %
[2018-03-02 10:11] LABS: Neutrophils # 0.6 K/mcL (1.6-8.9)
[2018-03-02 10:20] LABS: BUN/Creatinine Ratio 18 (6-26); Blood Urea Nitrogen 13 mg/dL (6-20); Calcium 9.9 mg/dL (8.6-10.3); Carbon Dioxide 28 mEq/L (23-29); Chloride 98 mEq/L (98-107); Glucose 176 mg/dL (70-105); Osmolality,Calculated 284 (280-300); Potassium 4.5 mEq/L (3.5-5.1); Sodium 135 mEq/L (136-145); eGFR For Non-African Americans > 60 (> 60)
[2018-03-02 10:33] LABS: Platelet Estimate Normal (Normal)
--- NOTE | 2018-03-02 10:58 | Emergency Department Note ---
Disposition Clinical Impression: Diabetic foot ulcer, Cellulitis, Nonhealing surgical wound Disposition: Admitted As Inpatient Condition: Fair Referrals: NONE,PCP [Primary Care Provider] - Forms: ED Satisfaction Letter Time of Disposition: 11:01 General Adult HPI - General Chief complaint: ED Wound/Laceration Stated complaint: Right foot infection Time Seen by Provider: 03/02/18 09:24 Source: patient Mode of arrival: private vehicle Limitations: no limitations - History of Present Illness Pain Scale: 3 - Related Data Home Medications Medication Instructions Recorded Confirmed Bupropion HCl [Wellbutrin Xl] 300 mg PO QAM 11/13/15 10/25/17 Citalopram [CeleXA] 20 mg PO DAILY 11/13/15 10/25/17 Empagliflozin/Linagliptin 1 tab PO DAILY 11/13/15 10/25/17 [Glyxambi 25 mg-5 mg Tablet] Gabapentin [Neurontin] 100 mg PO TID 11/13/15 10/25/17 Levothyroxine [Synthroid] 100 mcg PO DAILY 11/13/15 10/25/17 glyBURIDE [GlyBURIDE] 10 mg PO BID 11/13/15 10/25/17 BuPROPion XL (24 HR) [Wellbutrin 150 mg PO QPM 07/09/16 10/25/17 Xl] Metformin HCl [Glucophage] 1,000 mg PO BID 07/09/16 10/25/17 Previous Rx's Medication Instructions Recorded clonazePAM [Klonopin] 0.5 mg PO BID PRN #30 tablet 07/10/16 Cefazolin Sodium in 0.9 % NaCl 2 gm IV Q8H #60 syringe 11/04/17 [Cefazolin-0.9% NaCl 2 G/10 ml] Metoprolol [Lopressor] 50 mg PO BID #60 tablet 11/04/17 Ondansetron HCl [Zofran] 4 mg PO Q8HR PRN #20 tab 11/04/17 OxyCODONE Immed Rel [Roxicodone 5 5 mg PO Q6HR PRN 4 Days #16 tablet 11/04/17 MG] amLODIPine [Norvasc] 5 mg PO DAILY #60 tablet 11/04/17 Allergies Allergy/AdvReac Type Severity Reaction Status Date / Time Penicillins [PCN] Allergy Rash Verified 03/02/18 09:24 Sulfa (Sulfonamide Allergy Rash Verified 03/02/18 09:24 Antibiotics) Past Medical History - Past Medical History Medical history: Reports: diabetes, hypertension, thyroid disease Surgical history: Reports: hysterectomy, orthopedic, other, sinus surgery, other Psychiatric history: Reports: anxiety, depression - Social History Smoking Status: Never smoker Smokeless Tobacco Status: No Alcohol use: Reports: none Drug use: Reports: none Physical Exam - General Limitations: no limitations General appearance: alert, in no apparent distress Course Vital Signs Temperature 97.9 F 03/02/18 09:22 Pulse Rate 93 03/02/18 09:22 Respiratory Rate 16 03/02/18 09:22 Blood Pressure 126/78 03/02/18 09:22 O2 Sat by Pulse Oximetry 96 03/02/18 09:22 Temperature 97.9 F 03/02/18 09:42 Pulse Rate 93 03/02/18 09:42 Respiratory Rate 16 03/02/18 09:42 Blood Pressure 126/78 03/02/18 09:42 O2 Sat by Pulse Oximetry 96 03/02/18 09:42 Oxygen Delivery Oxygen Delivery Room Air Medical Decision Making - Lab Data Result diagrams: 03/02/18 09:53 03/02/18 09:53 Lab Results 03/02/18 03/02/18 Range/Units 09:53 09:53 WBC 1.8 L (4.3-11.1) K/mcL RBC 4.87 (3.82-4.97) M/mcL Hgb 13.2 (11.5-15.4) g/dL Hct 42.9 (35.3-44.9) % MCV 88.1 (83.0-100.0) fL MCH 27.1 L (28.0-33.3) pg MCHC 30.8 L (31.6-35.5) g/dL RDW 14.9 H (11.5-14.5) % Plt Count 235 (140-400) K/mcL MPV 8.8 L (9.4-12.4) fL Immature Gran % 0.0 (0-4) % Seg Neutrophils % 35.7 % Lymphocytes % 39.6 % Monocytes % 18.1 % Eosinophils % 5.5 % Basophils % 1.1 % Neutrophils # 0.6 L (1.6-8.9) K/mcL Lymphocytes # 0.7 (0.6-4.6) K/mcL Monocytes # 0.3 (0.0-1.3) K/mcL Eosinophils # 0.1 (0.0-0.6) K/mcL Basophils # 0.0 (0.0-0.2) K/mcL Platelet Estimate Normal (Normal) Sodium 135 L (136-145) mEq/L Potassium 4.5 (3.5-5.1) mEq/L Chloride 98 (98-107) mEq/L Carbon Dioxide 28 (23-29) mEq/L BUN 13 (6-20) mg/dL Creatinine 0.71 (0.60-1.20) mg/dL Est GFR ( Amer) > 60 (> 60) Est GFR (Non-Af Amer) > 60 (> 60) BUN/Creatinine Ratio 18 (6-26) Glucose 176 H (70-105) mg/dL Calculated Osmolality 284 (280-300) Calcium 9.9 (8.6-10.3) mg/dL Attestation Statement - Attestation Attestation: I, Douglas Acosta DO have provided [id number] time during the care of this patient. Detailed review the presentation, symptoms, medical history were discussed and reviewed with the advanced practice provider Ynes Arango PA-C/POLYMER ENGINEER. Medical intervention labs and imaging studies were reviewed in detail. See full documentation of physical exam and course of care in the advanced practice provider's note. I agree with the determined course of care, medical intervention and disposition put forth by the advanced practice provider. See below documentation for changes or alterations in documentation. 57-year-old female presents to the emergency room for evaluation of right foot wound. Patient had an indication to her right great toe approximately 2 months ago. She is at the wound care clinic today. Patient is been on Levaquin at the prescription of the surgical services coordinator to complete the procedure. He recommended she come in the emergency room today for admission the hospital and IV antibiotics and symptomatic control reevaluation by medical wound. On physical exam the patient has redness to the medial aspect of the right knee but there is no warmth tenderness or palpable blood vessel noted underneath redness at this time. She is otherwise alert oriented speaking full sentences denies any chest pain shortness of breath headache vision changes nausea vomiting or diarrhea. Patient will have blood cultures CBC chemistry along with x-rays were completed and admission process will be established. No other acute concerns or issues noted this time. She does have significant deterioration of the skin along with callusing to the foot over the right foot. She has full range of motion of the hip knee and ankle with no other acute vascular related etiology noted at this time. Pulses are intact in the DP and PT distribution are symmetrical bilaterally. Patient will be admitted for continuation of care. See detailed documentation the physical exam, medical intervention, medical decision-making and disposition in the advanced practice provider's note. No critical care provider the patient's treatment course at this time. Hospitalist has except to the patient for continuation of care.
[2018-03-02] MEDS ORDERED: Naloxone 0.4 MG/ML INJ IVP PRN (14:32)
[2018-03-02] MEDS ORDERED: Dextrose Gel 15 GM/37.5 ML TUBE PO PRN ×2 (14:36)
[2018-03-02] MEDS ORDERED: *HR* Dextrose 50 % in Water (Syg) 50 ML SYRINGE IVP PRN (14:36)
[2018-03-02] MEDS ORDERED: D5% in Water 1,000 ML IVC PRN (14:36)
--- NOTE | 2018-03-02 14:51 | Internal Med History&Physical ---
Date of Encounter: 03/02/18 Time of Encounter: 13:45 Internal Medicine - H&P: HPI Chief complaint: Right Foot Infection Admitted From: Home Plans for Post Hospital Care: Home History of present illness: Ms. Walker is a 57 year old female with past medical history significant for chronic right foot wound, type 2 diabetes, hypertension, hyperlipidemia, hypothyroidism, depression, and anxiety who presents from wound care clinic with Dr Christiansen who advised to come to ER. Patient had right great toe and partial metatarsal amputation 2017 following injury from a fall. Has been following with wound care and having antibiotic treatment since. Currently on 10 day course of Levaquin set to be completed tomorrow. Has been having wound care every Wednesday. States prior to starting this course of Levaquin she had redness across right foot and up right leg to her knee but it has since improved but not resolved completely. Also complains of a constant 3/ 10 tight pain around her right foot. Has decreased sensation in bilateral feet which is chronic for patient. Denies any chest pain, shortness of breath, abdominal pain, fever, chills, diarrhea, bowel or bladder changes. Dr Christiansen requested ER to admit patient and plans to take patient to OR tomorrow for debridement and wound cultures. Blood cultures completed while in ER. Dr Christiansen also requested consult be placed for Hematology and Infectious Disease, which ER has already completed. Patient discussed with Dr Murdock. Past Med Surg Social Fam HX - Past Medical History Medical history: diabetes, hypertension, thyroid disease Additional medical history: Osteomyelitis. MRSA. neuropathy Psychiatric history: anxiety, depression - Past Surgical History Surgical History: hysterectomy, orthopedic, other, sinus surgery, other Additional surgical history: left foot skin graft, left great toe hardware placement. right great toe removal - Social History Smoking Status: Never smoker Smokeless Tobacco Status: No Alcohol use: none Drug use: none - Family History Mother Family Member Ethnicity: Non- Living Status: Hx Family Cardiac Disorders: No Hx Family Respiratory Disorders: No Hx Family Cancer: Yes Hx Family GI Disorders: No Hx Family Endocrine Disorder: Yes Hx Family Neuromuscular Disorders: Yes Hx Family Neurologic Disorders: No Hx Family HEENT Disorders: No Hx Family Autoimmune Disorders: No Internal Medicine - H&P: Meds Bupropion HCl [Wellbutrin Xl] 300 mg PO QAM 11/13/15 [History] Citalopram [CeleXA] 20 mg PO DAILY 11/13/15 [History] Empagliflozin/Linagliptin [Glyxambi 25 mg-5 mg Tablet] 1 tab PO DAILY 11/13/15 [ History] Gabapentin [Neurontin] 100 mg PO TID 11/13/15 [History] Levothyroxine [Synthroid] 100 mcg PO DAILY 11/13/15 [History] glyBURIDE [GlyBURIDE] 10 mg PO BID 11/13/15 [History] BuPROPion XL (24 HR) [Wellbutrin Xl] 150 mg PO QPM 07/09/16 [History] Metformin HCl [Glucophage] 1,000 mg PO BID 07/09/16 [History] clonazePAM [Klonopin] 0.5 mg PO BID PRN #30 tablet 07/10/16 [Rx] Metoprolol [Lopressor] 25 mg PO BID 03/02/18 [History] Rosuvastatin Calcium [Crestor] 10 mg PO DAILY 03/02/18 [History] levoFLOXacin [Levaquin] 500 mg PO DAILY 03/02/18 [History] 3 Allergy/AdvReac Type Severity Reaction Status Date / Time Penicillins [PCN] Allergy Rash Verified 03/02/18 09:24 Sulfa (Sulfonamide Allergy Rash Verified 03/02/18 09:24 Antibiotics) All Systems PM: A 10-system review of systems was performed and is negative for pertinent findings except as documented above in the HPI. - Constitutional Vitals: Temp Pulse Resp BP Pulse Ox 97.9 F 92 14 125/78 98 03/02/18 12:15 03/02/18 12:15 03/02/18 12:15 03/02/18 12:15 03/02/18 12:15 Exam: General: Alert and oriented. Skin:Normal color, no rash. Dressing to right foot dry and intact. Skin sloughing noted to right foot with circumferential redness. No drainage noted at this time. Redness also noted to inner right ankle and inner right knee. HEENT:Pupils equal, round and reactive. Cardiovascular:Normal S1 & S2, no rubs, murmurs or gallops. No JVD. Pulse regular. Lungs:Normal breath sounds, no wheezes or crackles. Abdomen:Soft, non-tender, no rigidity. Extremities:No tenderness, or clubbing. Non pitting edema noted to right foot. Neurological:Normal cognition and motor skills. Pulses:Carotid and radial pulses normal +2. Rest of the physical exam is non contributory. Internal Med - H&P Results - Labs CBC & Chem 7: 03/02/18 09:53 03/02/18 09:53 - Assessment and plan (1) Right foot infection Current Visit: Yes Status: Chronic Assessment and plan: Seen by Dr Christiansen today in wound clinic and is planning debridement in OR tomorrow with wound culture. Hematology and Infectious Disease consulted by ER. Blood cultures obtained in ER. Repeat labs in a.m. Continuous provider scribe. NPO at midnight. (2) Type 2 diabetes mellitus Current Visit: Yes Status: Chronic Assessment and plan: Diabetic diet. Hold home diabetic medications. ACHS accucheck. Low dose sliding scale insulin. 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 Repeat labs in a.m. Hematology consulted by ER. Qualifiers: Leukopenia type: unspecified Qualified Code(s): D72.819 - Decreased white blood cell count, unspecified - Time Spent With Patient Total time spent is greater than 50% in coordination of care (as documented) at patient's floor/unit and/or counseling patient:
[2018-03-02] MEDS ORDERED: clonazePAM 0.5 MG TABLET PO PRN (15:05)
--- NOTE | 2018-03-02 15:25 | Infectious Disease Consult ---
Date of Encounter: 03/02/18 Time of Encounter: 15:23 Assessment and Plan (1) Right foot infection Status: Chronic Assessment and plan: Location: Right foot. Causative organism: C. koseri based on previous wound culture. Improved with PO Levaquin and Bactrim, but not completely resolved. Likely secondary to non-healing wound of the right foot. X-ray of the right foot showed possible osteomyelitis of the right great toe stump and cellulitis. Podiatry consulted. Planning to take the patient to the OR tomorrow for I & D/ washout. Wound care and activity restrictions per the Podiatry team. Check ESR and CRP. No SIRS criteria and the patient does not appear toxic. Stop antibiotics for now until we can get intra-op cultures. Resume Levaquin 750mg IV daily post-op. Duration of treatment depends on the clinical picture. Monitor renal function and dose-adjust antibiotics. (2) Cellulitis Status: Acute Assessment and plan: Location: RLE. Causative organism: Likely C. koseri. Likely secondary to right foot non-healing wound. Improved on PO antibiotics, but still has area of erythema behind the knee. Consider venous doppler study to rule out DVT. Hold antibiotics as above for now. Resume post-op. Qualifiers: Site of cellulitis: extremity Site of cellulitis of extremity: lower extremity Laterality: right Qualified Code(s): L03.115 - Cellulitis of right lower limb (3) Foot ulcer Status: Acute Assessment and plan: Location: Medial aspect of right foot. Likely secondary to non-healing surgical wound. Podiatry consulted and following. Wound care and activity restrictions per the Podiatry team. 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 (4) Hypertension Status: Chronic Qualifiers: Hypertension type: essential hypertension Qualified Code(s): I10 - Essential (primary) hypertension (5) Depression Status: Chronic Qualifiers: Depression Type: unspecified Qualified Code(s): F32.9 - Major depressive disorder, single episode, unspecified (6) Hypothyroidism Status: Chronic Qualifiers: Hypothyroidism type: unspecified Qualified Code(s): E03.9 - Hypothyroidism , unspecified (7) Nonhealing surgical wound Status: Acute Qualifiers: Encounter type: subsequent encounter Qualified Code(s): T81.89XD - Other complications of procedures, not elsewhere classified, subsequent encounter (8) Leukopenia Status: Chronic Assessment and plan: Patient is chronically leukopenic. Etiology unclear. ANC 630. Patient reports workup 20 years ago and has declined Hem/Onc referral. Might be contributing to the patient's delayed wound healing. Continue to trend. Consider Hem/Onc evaluation while inpatient if the patient is agreeable. Qualifiers: Leukopenia type: unspecified Qualified Code(s): D72.819 - Decreased white blood cell count, unspecified (9) Diabetes mellitus Status: Chronic Assessment and plan: Recommend aggressive glucose monitorevent re-infection. Management per the primary team. 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 Walker is a 57 year old female has medical history of diabetes, hypertension , hypothyroidism, anxiety and depression, remote history of left great toe osteomyelitis status post amputation, and right great toe osteomyelitis status post amputation 09/2017. She was admitted to the hospital March 02 for right foot infection and leukopenia. We are consulted March 02 for antibiotic recommendations for right foot infection. Briefly, the patient is a 57-year-old female with past medical history as stated above. The patient is well-known to the ID services we have been consulted on her case in the past. The patient was seen in September for a right great toe ulcer. She underwent a dictation of the right great toe. Cultures were positive for MSSA. She completed a six-week course of IV Ancef followed by 14 days of oral Keflex and did well clinically. She continued on the wound care clinic. She saw Dr. Christiansen today and was advised to come to the emergency department for evaluation. Upon arrival, the patient was afebrile. She is mildly tachycardic. She is leukopenic, which is chronic for her. Renal function is normal. Right foot x-ray showed possible osteomyelitis of the right great toe stump and findings consistent with cellulitis. She had a chest x-ray showed a stable small pleural effusions. Blood cultures were obtained 2 sets. She was started on oral Levaquin. We have been asked to evaluate and make further recommendations. During my exam today, the patient states that overall she has felt well. She was seen by Dr. Christiansen in the wound clinic in 02/16/18 with redness of the RLE extending up to the knee. She was started on PO Levaquin 250mg and PO Bactrim. Wound cultures grew Levaquin dose was increased to 500mg daily. She completed 7 days of Bactrim and 9 days of Levaquin and saw Dr. Christiansen in the wound clinic today. Her symptoms are improved, but not resolved so he is planning to take her to the OR tomorrow for washout. The patient denies any fevers, chills, or rigors. Denies chest pain, shortness of breath, or cough. Denies nausea, vomiting, or diarrhea. Denies abdominal pain, urinary complaints, or appetite changes. Denies oral thrush or new skin lesions. Reports scant serous drainage from the wound. Denies foul odor or severe pain, but does report soreness at the site 08/07 currently. The patient lives at home with her . 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 She denies tobacco, alcohol, or illicit drug use. Denies chronic infectious diseases. States her blood sugars are well-controlled. CC: Trish Murdock MD Past Med Surg Social Fam HX - Past Medical History Attestation: Yes The following information was validated with the patient. Source: patient, old records reviewed, nursing notes reviewed Medical history: diabetes, hypertension, thyroid disease Additional medical history: Osteomyelitis. MRSA. neuropathy Psychiatric history: anxiety, depression - Past Surgical History Surgical History: hysterectomy, orthopedic, other, sinus surgery, other Additional surgical history: left foot skin graft, left great toe hardware placement. right great toe removal - Social History Smoking Status: Never smoker Smokeless Tobacco Status: No Alcohol use: none Drug use: none Occupational status: employed Current living situation: Home - Independent Activity Level: Independent ambulation Recent Out of Country Travel Within the Last 8 Weeks: No Exposure or Possible Exposure to Illness During Travel: No - Family History Mother Family Member Ethnicity: Non- Living Status: Hx Family Cardiac Disorders: No Hx Family Respiratory Disorders: No Hx Family Cancer: Yes Hx Family GI Disorders: No Hx Family Endocrine Disorder: Yes Hx Family Neuromuscular Disorders: Yes Hx Family Neurologic Disorders: No Hx Family HEENT Disorders: No Hx Family Autoimmune Disorders: No Infectious Disease-CN:Meds Bupropion HCl [Wellbutrin Xl] 300 mg PO QAM 11/13/15 [History] Citalopram [CeleXA] 20 mg PO DAILY 11/13/15 [History] Empagliflozin/Linagliptin [Glyxambi 25 mg-5 mg Tablet] 1 tab PO DAILY 11/13/15 [ History] Gabapentin [Neurontin] 100 mg PO TID 11/13/15 [History] Levothyroxine [Synthroid] 100 mcg PO DAILY 11/13/15 [History] glyBURIDE [GlyBURIDE] 10 mg PO BID 11/13/15 [History] BuPROPion XL (24 HR) [Wellbutrin Xl] 150 mg PO QPM 07/09/16 [History] Metformin HCl [Glucophage] 1,000 mg PO BID 07/09/16 [History] clonazePAM [Klonopin] 0.5 mg PO BID PRN #30 tablet 07/10/16 [Rx] Metoprolol [Lopressor] 25 mg PO BID 03/02/18 [History] Rosuvastatin Calcium [Crestor] 10 mg PO DAILY 03/02/18 [History] levoFLOXacin [Levaquin] 500 mg PO DAILY 03/02/18 [History] 3 Allergy/AdvReac Type Severity Reaction Status Date / Time Penicillins [PCN] Allergy Rash Verified 03/02/18 09:24 Sulfa (Sulfonamide Allergy Rash Verified 03/02/18 09:24 Antibiotics) All systems: reviewed and no additional remarkable complaints except as stated Exam - Constitutional Vitals: Temp Pulse Resp BP Pulse Ox 97.9 F 92 14 125/78 98 03/02/18 12:15 03/02/18 12:15 03/02/18 12:15 03/02/18 12:15 03/02/18 12:15 General appearance: cooperative, no acute distress, obese - Head Head exam: Present: atraumatic, normal inspection, normocephalic - Eye Eye exam: Present: EOMI, normal appearance, PERRL Pupils: Present: normal accommodation - ENT ENT exam: Present: mucous membranes moist - Neck Neck exam: Present: normal inspection - Respiratory Respiratory exam: Present: CTAB. Absent: rales, respiratory distress, rhonchi, wheezes - Cardiovascular Cardiovascular exam: Present: RRR, +S1, +S2 - GI/Abdominal GI/Abdominal exam: Present: distended (obese), normal bowel sounds, soft. Absent: tenderness - Extremities Exam Extremities exam: Absent: joint swelling, normal inspection (Surgical site overlying MT #1 with wound edges with small area of necrosis along the plantar wound edge. Wound bed is david, but moist, and without drainage or foul odor. Erythema noted to the dorsal aspect of the fore/midfoot.), tenderness Additional comments: Small area of erythema noted to the posterior aspect of the proximal calf without warmth or tenderness noted. - Neurological Exam Neurological exam: Present: alert, oriented X3, no focal deficits - Psychiatric Psychiatric exam: Present: normal affect, normal mood - Skin Skin exam: Present: dry, intact, normal color, warm Infectious Disease CN: Results - Labs CBC & Chem 7: 03/04/18 05:01 03/04/18 05:01 Consult Discharge Plan - Plan Referrals: NONE,PCP [Primary Care Provider] - - Attending Attestation I examined this patient and my medical decision-making was reviewed with the Resident Physician. I agree with the documented findings, disposition and treatment plan as described except to the extent set forth below. This is an addendum to original report dictated by Margarita Mir CNP. Please refer to Margarita's note for full detail. Patient is a 57-year-old woman who is well-known to known to our service who presented with right foot infection, cellulitis and chronic leukopenia. We were asked to evaluate the patient's make further recommendations. Wound culture back in 02/16/2018 grew Citrobacter koseri and in October 2017 patient grew staph aureus that was MSSA. X-ray of the right foot showed possible osteomyelitis of the right great toe stump and cellulitis. Podiatry was consulted and I guess there is a plan for gone to the OR tomorrow for I&D and washout. Recommendations: Check inflammatory markers including ESR and CRP Stop antibiotics until Intra-Op cultures are obtained We will resume levofloxacin post op Monitor labs and for drug toxicity Awaiting Intra-Op pathology, cultures and findings Duration of treatment likely 6 weeks of patient will probably need a midline or PICC line
--- NOTE | 2018-03-02 15:52 | Podiatry Consult Note ---
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 with acute cellulitis which failed outpatient treatment PLAN: Admit for IV antibiotics and surgical intervention Consultation to ID for antibiotic management- Citrobacter koseri isolated on cultures from 02/16/19- New wound cultures were obtained in wound care clinic today and blood cultures were obtained in ED Will obtain intra op cultures tomorrow Plan for surgical I&D tomorrow, placement of graft jacket and wound vac placement per NPO after midnight Will need SW on board for discharge planning Cleansed with saline at bedside, adaptic 4x4 and kerlix applied Change if saturated Call with any concerns or change in condition. Spoke with patient at bedside about assessment and plan, verbalizes understanding without question at this time. xray concerning for possible osteomyelitis Foot X-Ray 03/02/18 10:18 IMPRESSION: Status post great toe amputation at the level of the proximal 1st metatarsal. Some osseous irregularity of the distal stump raise the possibility for osteomyelitis. Marked soft tissue swelling along the medial and dorsal aspect of the foot with associated wound suspicious for cellulitis. D/ / Natasha Villasenor MD / Natasha Villasenor MD Interpreting Provider: Natasha Villasenor MD Qualifiers: Encounter type: subsequent encounter Qualified Code(s): T81.89XD - Other complications of procedures, not elsewhere classified, subsequent encounter History of Present Illness HPI: #1 patient with nonhealing surgical wound/Torres grade 3, status post amputation of first ray with a irregular shaped wound due to irregular tissue loss. Patient has been following in Wound Care center per for this non healing wound. Patient has had ongoing cellulitis of the RLE and has failed oral levaquin treatment. Reports cellulitis has improved however has not resolved. Patient presently under the care of infectious disease for intravenous antibiotics. No chest pain nausea vomiting fever chills. Wound itself is clean 95% granulation tissue 5% fibrin no undermining sinus tract or tunneling. There is scant serous drainage. Mild odor. Dressing intact from ED. Patient denies any malaise. Wound cultures obtained on 02/16/18 positive for citrobacter koseri. Past Med Surg Social Fam HX - Past Medical History Medical history: diabetes, hypertension, thyroid disease Additional medical history: Osteomyelitis. MRSA. neuropathy Psychiatric history: anxiety, depression - Past Surgical History Surgical History: hysterectomy, orthopedic, other, sinus surgery, other Additional surgical history: left foot skin graft, left great toe hardware placement. right great toe removal - Social History Smoking Status: Never smoker Smokeless Tobacco Status: No Alcohol use: none Drug use: none - Family History Mother Family Member Ethnicity: Non- Living Status: Hx Family Cardiac Disorders: No Hx Family Respiratory Disorders: No Hx Family Cancer: Yes Hx Family GI Disorders: No Hx Family Endocrine Disorder: Yes Hx Family Neuromuscular Disorders: Yes Hx Family Neurologic Disorders: No Hx Family HEENT Disorders: No Hx Family Autoimmune Disorders: No Medications and Allergies Bupropion HCl [Wellbutrin Xl] 300 mg PO QAM 11/13/15 [History] Citalopram [CeleXA] 20 mg PO DAILY 11/13/15 [History] Empagliflozin/Linagliptin [Glyxambi 25 mg-5 mg Tablet] 1 tab PO DAILY 11/13/15 [ History] Gabapentin [Neurontin] 100 mg PO TID 11/13/15 [History] Levothyroxine [Synthroid] 100 mcg PO DAILY 11/13/15 [History] glyBURIDE [GlyBURIDE] 10 mg PO BID 11/13/15 [History] BuPROPion XL (24 HR) [Wellbutrin Xl] 150 mg PO QPM 07/09/16 [History] Metformin HCl [Glucophage] 1,000 mg PO BID 07/09/16 [History] clonazePAM [Klonopin] 0.5 mg PO BID PRN #30 tablet 07/10/16 [Rx] Metoprolol [Lopressor] 25 mg PO BID 03/02/18 [History] Rosuvastatin Calcium [Crestor] 10 mg PO DAILY 03/02/18 [History] levoFLOXacin [Levaquin] 500 mg PO DAILY 03/02/18 [History] 3 Allergy/AdvReac Type Severity Reaction Status Date / Time Penicillins [PCN] Allergy Rash Verified 03/02/18 09:24 Sulfa (Sulfonamide Allergy Rash Verified 03/02/18 09:24 Antibiotics) All Systems Reviewed: As per HPI Physical Exam - Constitutional Vitals: Temp Pulse Resp BP Pulse Ox 96.9 F L 96 14 111/66 98 03/02/18 15:25 03/02/18 15:25 03/02/18 15:25 03/02/18 15:25 03/02/18 15:25 Exam: Awake alert and oriented Pulses palpable +1/4 DP and PT bilaterally Cap refill < 3 seconds Mild pitting edema to RLE minimal to LLE No calf pain to manual compression Warm toes to tibia Minimal sensation to light or moderate touch Non healing surgical wound noted to medial aspect of right foot measuring 5.3cmx3.1cmx0.3cm without probe to bone. Healthy granulation tissue to wound bed. No undermining, sinus tracts or tunneling noted. Mild surrounding edema and erythema noted, extends to midfoot- per patient it was up to calf earlier in the week and has regressed. No odor noted. Scant serosang drainage noted. Results - Labs Result Diagrams: 03/03/18 06:08 03/03/18 06:08 Labs: Abnormal lab results WBC 1.8 K/mcL (4.3-11.1) L 03/02/18 09:53 MCH 27.1 pg (28.0-33.3) L 03/02/18 09:53 MCHC 30.8 g/dL (31.6-35.5) L 03/02/18 09:53 RDW 14.9 % (11.5-14.5) H 03/02/18 09:53 MPV 8.8 fL (9.4-12.4) L 03/02/18 09:53 Neutrophils # 0.6 K/mcL (1.6-8.9) L 03/02/18 09:53 Sodium 135 mEq/L (136-145) L 03/02/18 09:53 Glucose 176 mg/dL (70-105) H 03/02/18 09:53 C-Reactive Protein 76 mg/L (Less than 10) H 03/02/18 15:10 All other labs normal. Consult Discharge Plan - Plan Referrals: NONE,PCP [Primary Care Provider] -
[2018-03-02] MEDS: Insulin LISPRO 300 UNITS/3 ML VIAL SQ SCH (17:16)
[2018-03-02] MEDS: BuPROPion XL (24 HR) 150 MG TABLET PO SCH (17:19)
[2018-03-02] MEDS: Gabapentin 100 MG CAPSULE PO SCH (20:32)
[2018-03-02] MEDS ORDERED: Insulin LISPRO 300 UNITS/3 ML VIAL SQ SCH (21:00)
--- NOTE | 2018-03-02 22:28 | Anesthesia Evaluation PreOp ---
<Wandy Cedillo - Last Filed: 03/02/18 22:26> Date of Encounter: 03/02/18 Time of Encounter: 22:26 - Past History Planned Operation: R foot debridement Cardiac History: HTN, Hyperlipidemia Pulmonary History: Denies Any Significant HX BLOCKER POLISHING History: Other (anxiety, depression) Other Medical History: Diabetes Type II, Thyroid (hypo) Anesthesia History: No Prior Anesthetic Complications, Past Anesthesia (R foot I and D) Alcohol Use: none Drug use: none Medications and Allergies Bupropion HCl [Wellbutrin Xl] 300 mg PO QAM 11/13/15 [History] Citalopram [CeleXA] 20 mg PO DAILY 11/13/15 [History] Empagliflozin/Linagliptin [Glyxambi 25 mg-5 mg Tablet] 1 tab PO DAILY 11/13/15 [ History] Gabapentin [Neurontin] 100 mg PO TID 11/13/15 [History] Levothyroxine [Synthroid] 100 mcg PO DAILY 11/13/15 [History] glyBURIDE [GlyBURIDE] 10 mg PO BID 11/13/15 [History] BuPROPion XL (24 HR) [Wellbutrin Xl] 150 mg PO QPM 07/09/16 [History] Metformin HCl [Glucophage] 1,000 mg PO BID 07/09/16 [History] clonazePAM [Klonopin] 0.5 mg PO BID PRN #30 tablet 07/10/16 [Rx] Metoprolol [Lopressor] 25 mg PO BID 03/02/18 [History] Rosuvastatin Calcium [Crestor] 10 mg PO DAILY 03/02/18 [History] levoFLOXacin [Levaquin] 500 mg PO DAILY 03/02/18 [History] 3 Allergy/AdvReac Type Severity Reaction Status Date / Time Penicillins [PCN] Allergy Rash Verified 03/02/18 09:24 Sulfa (Sulfonamide Allergy Rash Verified 03/02/18 09:24 Antibiotics) - Meds/Allergy Pre-op Review Medications Reviewed: Yes Allergies Reviewed: Yes Beta Blockers on Current Med List: No Anesthesia Results - Labs 03/02/18 09:53 03/02/18 09:53 - Imaging EKG: report reviewed (SINUS TACHYCARDIA Poor R wave progression Electronically Signed On 10-27-2017 7:01:28 EDT by Darnell Adams) Anesthesia Exam Vital Signs/O2 Sat, Most Current Temp Pulse Resp BP Pulse Ox 97.5 F L 98 16 124/74 96 03/02/18 19:43 03/02/18 19:43 03/02/18 19:43 03/02/18 19:43 03/02/18 19:43 Weight: 91kg - HEENT Pupil (Motor): Pupils equal, EOMI Mallampati: II Oral Opening: Greater than 3 - BLOCKER POLISHING LOC: Oriented BLOCKER POLISHING Motor: Normal RUE, Normal LUE, Normal RLE, Normal LLE, Normal Face BLOCKER POLISHING Sensory: Normal: RUE, LUE, LLE, Face, Deficit: RLE (neuropathy) - Cardiac Rhythm: Regular - Pulmonary Breath Sounds: bilateral Clear Respiratory Effort: Symmetrical Anesthesia Assess/Plan ASA Score: 3 Modified Allan Scale for Level of Consciousness: Cooperative, oriented, and tranquil Anesthetic Plan: MAC Monitoring Plan: Standard Monitors Recovery Plan: PACU <Sp Lu - Last Filed: 03/03/18 12:26> Date of Encounter: 03/03/18 - Meds/Allergy Pre-op Review Beta Blockers on Current Med List: Yes If Beta Blockers taken, Date/Time (Last Dose taken): 03/03/2018 at 0750 Anesthesia Results - Labs 03/03/18 06:08 03/03/18 06:08 Anesthesia Exam Vital Signs/O2 Sat/Glucose, Most Recent Temp Pulse Resp BP Pulse Ox 97.5 F L 90 19 112/72 93 03/03/18 07:54 03/03/18 07:54 03/03/18 07:54 03/03/18 07:54 03/03/18 07:54 Blood Glucose* 161 Height: 5'4'' Weight: 203 lbs/ 91 kg
[2018-03-03 06:41] LABS: Eosinophils # 0.1 K/mcL (0.0-0.6); Hematocrit 36.5 % (35.3-44.9); Hemoglobin 11.3 g/dL (11.5-15.4); Lymphocytes # 0.8 K/mcL (0.6-4.6); Mean Corpuscular Hemoglobin 26.9 pg (28.0-33.3); Mean Corpuscular Volume 86.9 fL (83.0-100.0); Mean Platelet Volume 9.3 fL (9.4-12.4); Monocytes # 0.3 K/mcL (0.0-1.3); Platelet Count 218 K/mcL (140-400); Red Cell Distribution Width 14.8 % (11.5-14.5)
[2018-03-03 06:57] LABS: BUN/Creatinine Ratio 18 (6-26); Blood Urea Nitrogen 10 mg/dL (6-20); Calcium 9.5 mg/dL (8.6-10.3); Carbon Dioxide 25 mEq/L (23-29); Chloride 102 mEq/L (98-107); Glucose 160 mg/dL (70-105); Osmolality,Calculated 288 (280-300); Potassium 4.2 mEq/L (3.5-5.1); Sodium 138 mEq/L (136-145); eGFR For Non-African Americans > 60 (> 60)
[2018-03-03] MEDS: Insulin LISPRO 300 UNITS/3 ML VIAL SQ SCH ×4 (08:00→22:12)
[2018-03-03 08:22] LABS: Neutrophils # 0.4 K/mcL (1.6-8.9)
[2018-03-03 08:23] LABS: Platelet Estimate Normal (Normal)
[2018-03-03] MEDS ORDERED: BuPROPion XL (24 HR) 150 MG TABLET PO SCH (09:00)
[2018-03-03] MEDS ORDERED: levoFLOXacin 500 MG TABLET PO SCH (09:00)
[2018-03-03] MEDS ORDERED: *HR* Midazolam HCl 2 MG/2 ML VIAL ONE (09:20)
[2018-03-03] MEDS ORDERED: *HR* FentaNYL (PF) 100 MCG/2 ML VIAL ONE (09:20)
[2018-03-03] MEDS ORDERED: *HR* Propofol 200 MG/20 ML VIAL IVP ONE ×2 (09:20→13:28)
[2018-03-03] MEDS ORDERED: Ondansetron 4 MG/2 ML VIAL ONE (09:22)
[2018-03-03] MEDS ORDERED: Dexamethasone 4 MG/ML VIAL ONE (09:22)
[2018-03-03] MEDS ORDERED: Lidocaine -MPF 2% 2 ML VIAL ONE (09:22)
[2018-03-03] MEDS ORDERED: Bupivacaine/Clonidine Syringe 1 EACH SYRINGE ONE (13:07)
--- NOTE | 2018-03-03 14:11 | Internal Med Progress Note ---
Hospitalist Progress Note - Encounter Date of Encounter: 03/03/18 Time of Encounter: 14:08 - Subjective Interval History: Patient seen and examined in the room, left foot dressing dry and intact, she denies fever, chills, or night sweats. She is awaiting podiatry surgery this morning. - Exam Vitals: Temp Pulse Resp BP Pulse Ox 97.5 F L 90 19 112/72 93 03/03/18 07:54 03/03/18 07:54 03/03/18 07:54 03/03/18 07:54 03/03/18 07:54 Exam: General: Alert and oriented. Skin:Normal color, no rash. Dressing to right foot dry and intact. Skin sloughing noted to right foot with circumferential redness. No drainage noted at this time. Redness also noted to inner right ankle and inner right knee. HEENT:Pupils equal, round and reactive. Cardiovascular:Normal S1 & S2, no rubs, murmurs or gallops. No JVD. Pulse regular. Lungs:Normal breath sounds, no wheezes or crackles. Abdomen:Soft, non-tender, no rigidity. Extremities:No tenderness, or clubbing. Non pitting edema noted to right foot. Neurological:Normal cognition and motor skills. Pulses:Carotid and radial pulses normal +2. Rest of the physical exam is non contributory. - Assessment and Plan (1) Right foot infection Current Visit: Yes Status: Chronic Assessment and Plan: Left foot wound I+D scheduled this morning by podiatry. will start IV abx with Levaquin 750 mg daily after OP. Podiatry and ID following, appreciate help. (2) Type 2 diabetes mellitus Current Visit: No Status: Chronic Assessment and Plan: Diabetic diet. Hold home diabetic medications. ACHS accucheck. Low dose sliding scale insulin. (3) Decreased white blood cell count, unspecified Current Visit: No Status: Chronic Assessment and Plan: Chronic for patient. Repeat labs in a.m. Hematology consulted by ER. DVT Prophylaxis: Heparin subcutaneous - Time Spent with Patient Total time spent is greater than 50% in coordination of care (as documented) at patient's floor/unit and/or counseling patient: Greater than 35 minutes Plan of Care Discussed with: patient Internal Medicine: Result - Labs CBC & Chem 7: 03/03/18 06:08 03/03/18 06:08 Labs: Short CBC 10/04/18 Range/Units 06:08 WBC 1.5 L (4.3-11.1) K/mcL Hgb 11.3 L D (11.5-15.4) g/dL Hct 36.5 (35.3-44.9) % Plt Count 218 (140-400) K/mcL Neutrophils # 0.4 L (1.6-8.9) K/mcL BMP 03/03/18 06:08 Sodium 138 Potassium 4.2 Chloride 102 Carbon Dioxide 25 BUN 10 Creatinine 0.55 L Glucose 160 H Calcium 9.5 Consult Discharge Plan - Plan Referrals: NONE,PCP [Primary Care Provider] - (2) Type 2 diabetes mellitus Qualifiers: Diabetes mellitus mcfp insulin use: without mcfp use Diabetes mellitus complication detail: with other skin complication Qualified Code(s): E11.628 - Type 2 diabetes mellitus with other skin complications (3) Decreased white blood cell count, unspecified Qualifiers: Leukopenia type: unspecified Qualified Code(s): D72.819 - Decreased white blood cell count, unspecified
--- NOTE | 2018-03-03 14:28 | Electrocardiograph Report ---
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
[2018-03-03] MEDS: Gabapentin 100 MG CAPSULE PO SCH ×3 (14:51→22:13)
[2018-03-03] MEDS ORDERED: Acetaminophen 325 MG TABLET PO PRN ×2 (15:12→19:48)
[2018-03-03] MEDS ORDERED: Levofloxacin 750 MG/150 ML 750 MG/150 ML BAG IVPB SCH (16:00)
--- NOTE | 2018-03-03 16:59 | Orthopedic Operative Note ---
Date of procedure: 03/03/18 Pre-op diagnosis: Nonhealing surgical wound right foot Post-op diagnosis: same Procedure: 03/03/18 16:57 #1: Incision and drainage and debridement of right foot wound #2 Application Nu-Shield amnion/chorion skin graft Implants: #1: Nu-shield amniotic graft. Complications: None Anesthesia: MAC, local Local Anesthetics: 0.25% Sensorcaine HCL SubQ (cc) Surgeon: Gavino Christiansen Was there an web marketing assistant present: No Estimated blood loss (cc): 5 Tourniquet Time (Minutes): 0 Specimen: None Condition: stable Disposition: floor Procedure in Detail: 03/03/18 17:00 Details in summary of procedure. Patient was brought to surgical suite. Sign in procedure performed. Patient transferred surgical table and positioned properly safely and securely. Right foot and leg elevated on a foam block. Timeout taken. Anesthetic timeout taken. Right ankle prepped with alcohol 3 times ankle block carried out no difficulties. No tourniquet used. Surgical timeout taken. Nonhealing surgical wound left medial aspect of the right forefoot in a the type configuration with a proximal flap. The overall wound measures 4 cm in length 4 cm in width 0.9 cm in depth. Large amounts of hyperkeratotic tissue surrounding the wound and on dorsal aspect of the foot. Peeling scaling and desquamation noted. No fluctuance no odor no purulence. The wound was then debrided down to the superficial fascial layer by surgical excisional methods using a curet and a marinanowonix's ultrasonic debrider. #15 scalpel blade was then used to obtain a fresh skin edge around the circumference of the wound. No complications ensued. Bleeding controlled irrigation judicious use of Bovie. Just prior to using the ultrasonic Misonix debrider the wound was then cultured with aerobic and anaerobic cultures. Surgical wound bed preparation was completed. A new shield amnion chorion graft was placed encompassing the complete wound. It was soaked in PRP prior to placement PRP was then sprayed over the wound is well followed by Adaptic and then platelet poor plasma were Adaptic with platelet poor plasma 4 x 4's Kerlix and a mild compressive dressing 2 and wrap. Patient tolerated procedure well hemostasis was achieved prior to placement of the dressing complications none patient sent to holding room in good condition with vital signs stable.
[2018-03-03] MEDS: BuPROPion XL (24 HR) 150 MG TABLET PO SCH (17:22)
[2018-03-03] MEDS ORDERED: Dextrose Gel 15 GM/37.5 ML TUBE PO PRN ×2 (19:48)
[2018-03-03] MEDS ORDERED: clonazePAM 0.5 MG TABLET PO PRN (19:48)
[2018-03-03] MEDS ORDERED: *HR* Dextrose 50 % in Water (Syg) 50 ML SYRINGE IVP PRN (19:48)
[2018-03-03] MEDS ORDERED: D5% in Water 1,000 ML IVC PRN (19:48)
[2018-03-03] MEDS ORDERED: Naloxone 0.4 MG/ML INJ IVP PRN (19:48)
[2018-03-04 05:44] LABS: Eosinophils # 0.1 K/mcL (0.0-0.6); Eosinophils % 4.7 %
[2018-03-04 05:46] LABS: Basophils % 1.3 %; Hematocrit 37.8 % (35.3-44.9); Hemoglobin 11.7 g/dL (11.5-15.4); Lymphocytes # 0.9 K/mcL (0.6-4.6); Lymphocytes % 61.7 %; Mean Corpuscular Hemoglobin 26.8 pg (28.0-33.3); Mean Corpuscular Volume 86.7 fL (83.0-100.0); Mean Platelet Volume 9.3 fL (9.4-12.4); Monocytes # 0.3 K/mcL (0.0-1.3); Monocytes % 18.1 %; Neutrophils # 0.2 K/mcL (1.6-8.9); Platelet Count 217 K/mcL (140-400); Red Blood Count 4.36 M/mcL (3.82-4.97); Red Cell Distribution Width 14.6 % (11.5-14.5); Segmented Neutrophils % 14.2 %
[2018-03-04 05:59] LABS: BUN/Creatinine Ratio 19 (6-26); Blood Urea Nitrogen 11 mg/dL (6-20); Calcium 9.5 mg/dL (8.6-10.3); Carbon Dioxide 29 mEq/L (23-29); Chloride 101 mEq/L (98-107); Glucose 174 mg/dL (70-105); Osmolality,Calculated 288 (280-300); Sodium 137 mEq/L (136-145); eGFR For Non-African Americans > 60 (> 60)
[2018-03-04 07:34] LABS: Platelet Estimate Normal (Normal)
[2018-03-04] MEDS: Gabapentin 100 MG CAPSULE PO SCH ×3 (08:01→21:11)
[2018-03-04] MEDS: BuPROPion XL (24 HR) 150 MG TABLET PO SCH ×2 (08:01→17:32)
[2018-03-04] MEDS: Insulin LISPRO 300 UNITS/3 ML VIAL SQ SCH ×3 (08:02→21:11)
[2018-03-04] MEDS: Levofloxacin 750 MG/150 ML 750 MG/150 ML BAG IVPB SCH (08:02)
--- NOTE | 2018-03-04 11:08 | Internal Med Progress Note ---
Hospitalist Progress Note - Encounter Date of Encounter: 03/04/18 Time of Encounter: 11:05 - Subjective Interval History: Seen and examined at bedside today. S/P I&D and debridement of right foot wound. No acute changes overnight - Exam Vitals: Temp Pulse Resp BP Pulse Ox 97.9 F 80 16 141/80 93 03/04/18 07:14 03/04/18 07:14 03/04/18 07:14 03/04/18 07:14 03/04/18 07:14 Exam: General: Alert and oriented. Skin:Normal color, no rash. Dressing to right foot dry and intact. Skin sloughing noted to right foot with circumferential redness. No drainage noted at this time. Redness also noted to inner right ankle and inner right knee. HEENT:Pupils equal, round and reactive. Cardiovascular:Normal S1 & S2, no rubs, murmurs or gallops. No JVD. Pulse regular. Lungs:Normal breath sounds, no wheezes or crackles. Abdomen:Soft, non-tender, no rigidity. Extremities:No tenderness, or clubbing. Edema to the right foot improving, LAVERNE wound due to dressing, dressing CDI, distal circulation intact Neurological:Normal cognition and motor skills. Pulses:Carotid and radial pulses normal +2. Rest of the physical exam is non contributory. - Assessment and Plan (1) Right foot infection Current Visit: Yes Status: Chronic Assessment and Plan: Right foot wound s/p I&D Dr. Christiansen Dressing intact, LAVERNE wound bed at this time;dressing changes per podiatry recommendations; activity recommendations per podiatry team Denies any discomfort at this time ContinueLevaquin 750 mg daily after OP. Podiatry and ID following, appreciate help Discussed strict blood glucose control as well as increasing protein intake to assist with wound healing (2) Type 2 diabetes mellitus Current Visit: No Status: Chronic Assessment and Plan: Diabetic diet Hold home diabetic medications. ACHS accucheck. Continue low corrective coverage (3) Decreased white blood cell count, unspecified Current Visit: No Status: Chronic Assessment and Plan: Chronic leukopenia Repeat labs reveal a WBC 1.5; this is around patient's baseline DVT Prophylaxis: Continue Heparin subcutaneous - Time Spent with Patient Total time spent is greater than 50% in coordination of care (as documented) at patient's floor/unit and/or counseling patient: less than 15 minutes Plan of Care Discussed with: patient Internal Medicine: Result - Labs CBC & Chem 7: 03/04/18 05:01 03/04/18 05:01 Labs: Short CBC 03/04/18 Range/Units 05:01 WBC 1.5 L (4.3-11.1) K/mcL Hgb 11.7 (11.5-15.4) g/dL Hct 37.8 (35.3-44.9) % Plt Count 217 (140-400) K/mcL Neutrophils # 0.2 L (1.6-8.9) K/mcL BMP 03/04/18 05:01 Sodium 137 Potassium 4.0 Chloride 101 Carbon Dioxide 29 BUN 11 Creatinine 0.57 L Glucose 174 H Calcium 9.5 Consult Discharge Plan - Plan Referrals: NONE,PCP [Primary Care Provider] - (2) Type 2 diabetes mellitus Qualifiers: Diabetes mellitus intermediate insulin use: without registered dietitian use Diabetes mellitus complication detail: with other skin complication Qualified Code(s): E11.628 - Type 2 diabetes mellitus with other skin complications (3) Decreased white blood cell count, unspecified Qualifiers: Leukopenia type: unspecified Qualified Code(s): D72.819 - Decreased white blood cell count, unspecified
--- NOTE | 2018-03-04 12:50 | Podiatry Progress Note ---
Date of Encounter: 03/04/18 Time of Encounter: 12:55 - Assessment and Plan (1) Foot ulcer, right Current Visit: Yes Status: Acute Dressings remain intact until postop visit 1. NWB right lower extremity as tolerated. Orthowedge shoe will be supplied. Antibiotics per ID recommendations based on operative culture results. Follow up with Dr. Christiansen in wound care center next week. Qualifiers: Non-pressure ulcer stage: with necrosis of muscle Qualified Code(s): L97.513 - Non-pressure chronic ulcer of other part of right foot with necrosis of muscle Subjective Principal diagnosis: foot wound Interval history: Patient is progressing well on postop day 1 status post right foot wound debridement. Patient has been nonweightbearing in foot is elevated. Dressing is intact to the right lower extremity. She denies pain at this time. She denies nausea, vomiting, fever, chills. Objective - Vital Signs Vital Signs: Vital Signs Temp Pulse Resp BP Pulse Ox 03/04/18 11:46 98.0 F 83 16 106/64 92 03/04/18 07:14 97.9 F 80 16 141/80 93 03/04/18 03:38 98.0 F 78 16 126/77 92 03/04/18 00:05 97.8 F 88 16 127/76 93 03/03/18 18:51 97.9 F 88 16 115/74 95 03/03/18 16:32 97.9 F 83 18 109/70 95 Intake and Output 03/03/18 03/04/18 03/04/18 23:59 07:59 15:59 Intake Total 150 / 150 480 / 480 Balance 150 / 150 480 / 480 Intake: IV Fluids 150 / 150 Levaquin Premix 750mg/150 mL 150 / 150 750 mg In 150 ml @ 100 mls/hr IVPB DAILY [facility] Rx#:[id number] Oral 480 / 480 Other: Meal Breakfast Percent of Meal Consumed 100% Weight 93 kg Blood Glucose* 247 195 282 Patient Weight 03/04/18 23:59 Weight 93 kg - Exam Exam: Right foot wound dressing intact. No streaking erythema. No calf pain. Patient able to actively move digits and dorsiflex and plantarflex at the ankle. Capillary refill brisk - Lab Result Diagrams: 03/04/18 05:01 03/04/18 05:01 Labs: Abnormal lab results WBC 1.5 K/mcL (4.3-11.1) L 03/04/18 05:01 MCH 26.8 pg (28.0-33.3) L 03/04/18 05:01 MCHC 31.0 g/dL (31.6-35.5) L 03/04/18 05:01 RDW 14.6 % (11.5-14.5) H 03/04/18 05:01 MPV 9.3 fL (9.4-12.4) L 03/04/18 05:01 Band Neutrophils % 8.0 % (0-4) H 03/03/18 06:08 Neutrophils # 0.2 K/mcL (1.6-8.9) L 03/04/18 05:01 ESR 72 mm/hr (0-15) H 03/02/18 15:10 Creatinine 0.57 mg/dL (0.60-1.20) L 03/04/18 05:01 Glucose 174 mg/dL (70-105) H 03/04/18 05:01 POC Glucose 247 mg/dL (70-99) H 03/03/18 20:14 C-Reactive Protein 76 mg/L (Less than 10) H 03/02/18 15:10 Microbiology, Last 48 Hours 03/03/18 14:15 Surgical Biopsy Culture - Preliminary Right Foot Consult Discharge Plan - Plan Referrals: NONE,PCP [Primary Care Provider] -
--- NOTE | 2018-03-04 13:21 | Infectious Disease Progress No ---
Date of Encounter: 03/04/18 Time of Encounter: 13:19 - Assessment and Plan (1) Right foot infection Current Visit: Yes Status: Chronic Location: Right foot. Causative organism: C. koseri based on previous wound culture. Improved with PO Levaquin and Bactrim, but not completely resolved. Likely secondary to non-healing wound of the right foot. X-ray of the right foot showed possible osteomyelitis of the right great toe stump and cellulitis. Podiatry consulted. Status post I & D with debridement of the right foot by Dr. Christiansen. Intra-op cultures are pending. Wound care and activity restrictions per the Podiatry team. Check ESR and CRP. --> 72 and 76, respectively. No SIRS criteria and the patient does not appear toxic. Continue Levaquin 750mg IV daily. Duration of treatment depends on the clinical picture. Monitor renal function and dose-adjust antibiotics. (2) Cellulitis Current Visit: Yes Status: Acute Location: RLE. Causative organism: Likely C. koseri. Likely secondary to right foot non-healing wound. Improved on PO antibiotics, but still has area of erythema behind the knee. Consider venous doppler study to rule out DVT. Continue antibiotics as above. Qualifiers: Site of cellulitis: extremity Site of cellulitis of extremity: lower extremity Laterality: right Qualified Code(s): L03.115 - Cellulitis of right lower limb (3) Foot ulcer Current Visit: No Status: Acute Location: Medial aspect of right foot. Likely secondary to non-healing surgical wound. Podiatry consulted and following. Status post I & D 03/03/18. Wound care and activity restrictions per the Podiatry team. 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 (4) Hypertension Current Visit: No Status: Chronic Qualifiers: Hypertension type: essential hypertension Qualified Code(s): I10 - Essential (primary) hypertension (5) Depression Current Visit: No Status: Chronic Qualifiers: Depression Type: unspecified Qualified Code(s): F32.9 - Major depressive disorder, single episode, unspecified (6) Hypothyroidism Current Visit: No Status: Chronic Qualifiers: Hypothyroidism type: unspecified Qualified Code(s): E03.9 - Hypothyroidism , unspecified (7) Nonhealing surgical wound Current Visit: Yes Status: Acute Qualifiers: Encounter type: subsequent encounter Qualified Code(s): T81.89XD - Other complications of procedures, not elsewhere classified, subsequent encounter (8) Leukopenia Current Visit: Yes Status: Chronic Patient is chronically leukopenic. Etiology unclear. ANC 250. Patient reports workup 20 years ago and has declined Hem/Onc referral. Might be contributing to the patient's delayed wound healing. Continue to trend. Consider Hem/Onc evaluation while inpatient if the patient is agreeable. Qualifiers: Leukopenia type: unspecified Qualified Code(s): D72.819 - Decreased white blood cell count, unspecified (9) Diabetes mellitus Current Visit: No Status: Chronic Recommend aggressive glucose monitorevent re-infection. Management per the primary team. Qualifiers: Diabetes mellitus type: type 2 Diabetes mellitus bed bug exterminator insulin use: without bed bug exterminator use Diabetes mellitus complication status: with skin complications Diabetes mellitus complication detail: with foot ulcer Qualified Code(s): E11.621 - Type 2 diabetes mellitus with foot ulcer; L97.509 - Non-pressure chronic ulcer of other part of unspecified foot with unspecified severity - Subjective Interval history: Patient seen and examined. No acute events noted overnight. Status post I & D and debridement of the right foot 03/03/[address] Christiansen. Patient states overall she feels well. Denies fevers, chills, or rigors. Denies chest pain, shortness of breath, or cough. Denies nausea, vomiting, or diarrhea. Denies abdominal pain , urinary complaints, or appetite changes. Denies pain at the surgical site. Denies oral thrush or skin rashes. Infect Dis PN-Objective Data - Labs CBC & Chem 7: 03/04/18 05:01 03/04/18 05:01 Labs: Laboratory Results - last 24 hr 03/03/18 03/03/18 03/03/18 07:57 16:33 20:14 WBC RBC Hgb Hct MCV MCH MCHC RDW Plt Count MPV Immature Gran % Seg Neutrophils % Lymphocytes % Monocytes % Eosinophils % Basophils % Neutrophils # Lymphocytes # Monocytes # Eosinophils # Basophils # Platelet Estimate Sodium Potassium Chloride Carbon Dioxide BUN Creatinine Est GFR ( Amer) Est GFR (Non-Af Amer) BUN/Creatinine Ratio Glucose POC Glucose 161 H 180 H 247 H Calculated Osmolality Calcium 10/05/18 10/05/18 05:01 05:01 WBC 1.5 L RBC 4.36 Hgb 11.7 Hct 37.8 MCV 86.7 MCH 26.8 L MCHC 31.0 L RDW 14.6 H Plt Count 217 MPV 9.3 L Immature Gran % 0.0 Seg Neutrophils % 14.2 Lymphocytes % 61.7 Monocytes % 18.1 Eosinophils % 4.7 Basophils % 1.3 Neutrophils # 0.2 L Lymphocytes # 0.9 Monocytes # 0.3 Eosinophils # 0.1 Basophils # 0.0 Platelet Estimate Normal Sodium 137 Potassium 4.0 Chloride 101 Carbon Dioxide 29 BUN 11 Creatinine 0.57 L Est GFR ( Amer) > 60 Est GFR (Non-Af Amer) > 60 BUN/Creatinine Ratio 19 Glucose 174 H POC Glucose Calculated Osmolality 288 Calcium 9.5 Cultures: Cultures 03/03/18 14:15 Surgical Biopsy Culture - Preliminary Right Foot Exam - Constitutional Vitals: Temp Pulse Resp BP Pulse Ox 98.0 F 83 16 106/64 92 03/04/18 11:46 03/04/18 11:46 03/04/18 11:46 03/04/18 11:46 03/04/18 11:46 General appearance: cooperative, no acute distress, obese - Head Head exam: Present: atraumatic, normal inspection, normocephalic - Eye Eye exam: Present: EOMI, normal appearance, PERRL Pupils: Present: normal accommodation - ENT ENT exam: Present: mucous membranes moist - Neck Neck exam: Present: normal inspection - Respiratory Respiratory exam: Present: CTAB. Absent: rales, respiratory distress, rhonchi, wheezes - Cardiovascular Cardiovascular exam: Present: RRR, +S1, +S2 - GI/Abdominal GI/Abdominal exam: Present: distended (obese), normal bowel sounds, soft. Absent: tenderness - Extremities Exam Extremities exam: Absent: joint swelling, normal inspection (Rigth foot post-op dressing C/D/I.), pedal edema, tenderness - Neurological Exam Neurological exam: Present: alert, oriented X3, no focal deficits - Psychiatric Psychiatric exam: Present: normal affect, normal mood - Skin Skin exam: Present: dry, intact, normal color, warm Consult Discharge Plan - Plan Referrals: NONE,PCP [Primary Care Provider] - - Attending Attestation I examined this patient and my medical decision-making was reviewed with the Resident Physician. I agree with the documented findings, disposition and treatment plan as described except to the extent set forth below.
[2018-03-05] MEDS: *HR* Heparin 5,000 UNIT/ML VIAL SQ SCH ×3 (00:07→16:57)
[2018-03-05] MEDS: Gabapentin 100 MG CAPSULE PO SCH ×3 (08:30→20:05)
[2018-03-05] MEDS: Levofloxacin 750 MG/150 ML 750 MG/150 ML BAG IVPB SCH (08:30)
[2018-03-05] MEDS: BuPROPion XL (24 HR) 150 MG TABLET PO SCH ×2 (08:30→16:57)
[2018-03-05] MEDS: Insulin LISPRO 300 UNITS/3 ML VIAL SQ SCH ×3 (08:31→16:57)
--- NOTE | 2018-03-05 11:26 | Podiatry Progress Note ---
Date of Encounter: 03/05/18 Time of Encounter: 11:24 - Assessment and Plan (1) Foot ulcer, right Current Visit: Yes Status: Acute Dressings remain intact until postop visit 2. Right knee rash appears stable and likely due to rubbing from dressing. NWB right lower extremity as tolerated. Orthowedge shoe will be supplied. Antibiotics per ID recommendations based on operative culture results. Follow up with Dr. Christiansen in wound care center next week. Qualifiers: Non-pressure ulcer stage: with necrosis of muscle Qualified Code(s): L97.513 - Non-pressure chronic ulcer of other part of right foot with necrosis of muscle Subjective Principal diagnosis: foot wound Interval history: Patient is progressing well on postop day 2 status post right foot wound debridement. Patient has been nonweightbearing and foot is elevated. Dressing is intact to the right lower extremity. She reports a non-painful rash to right posterior knee. She denies pain at this time. She denies nausea, vomiting, fever, chills. Objective - Vital Signs Vital Signs: Vital Signs Temp Pulse Resp BP Pulse Ox 03/05/18 07:43 98.0 F 79 18 122/75 94 03/05/18 04:07 98.4 F 72 16 127/71 94 03/04/18 22:50 97.9 F 82 16 113/66 94 03/04/18 18:58 98.6 F 89 16 114/68 95 03/04/18 15:07 99.5 F 93 16 107/64 94 03/04/18 11:46 98.0 F 83 16 106/64 92 Intake and Output 03/04/18 03/05/18 03/05/18 23:59 07:59 15:59 Intake Total 390 / 390 240 / 240 Balance 390 / 390 240 / 240 Intake: IV Fluids 150 / 150 Levaquin Premix 750mg/150 mL 150 / 150 750 mg In 150 ml @ 100 mls/hr IVPB DAILY [facility] Rx#:[id number] Oral 240 / 240 240 / 240 Other: Meal Breakfast Percent of Meal Consumed 100% # Voids 1 Weight 97.7 kg Blood Glucose* 302 205 Patient Weight 03/05/18 23:59 Weight 97.7 kg - Exam Exam: Right foot wound dressing intact. No streaking erythema. No calf pain. Patient able to actively move digits and dorsiflex and plantarflex at the ankle. Capillary refill brisk - Lab Result Diagrams: 03/04/18 05:01 03/04/18 05:01 Labs: Abnormal lab results WBC 1.5 K/mcL (4.3-11.1) L 03/04/18 05:01 MCH 26.8 pg (28.0-33.3) L 03/04/18 05:01 MCHC 31.0 g/dL (31.6-35.5) L 03/04/18 05:01 RDW 14.6 % (11.5-14.5) H 03/04/18 05:01 MPV 9.3 fL (9.4-12.4) L 03/04/18 05:01 Band Neutrophils % 8.0 % (0-4) H 03/03/18 06:08 Neutrophils # 0.2 K/mcL (1.6-8.9) L 03/04/18 05:01 ESR 72 mm/hr (0-15) H 03/02/18 15:10 Creatinine 0.57 mg/dL (0.60-1.20) L 03/04/18 05:01 Glucose 174 mg/dL (70-105) H 03/04/18 05:01 POC Glucose 302 mg/dL (70-99) H 03/04/18 20:40 C-Reactive Protein 76 mg/L (Less than 10) H 03/02/18 15:10 Microbiology, Last 48 Hours 03/03/18 14:15 Surgical Biopsy Culture - Preliminary Right Foot Consult Discharge Plan - Plan Referrals: NONE,PCP [Primary Care Provider] -
--- NOTE | 2018-03-05 13:10 | Internal Med Progress Note ---
Hospitalist Progress Note - Encounter Date of Encounter: 03/05/18 Time of Encounter: 13:04 - Subjective Interval History: Seen and examined at bedside today. S/P I&D and debridement of right foot wound POD#2. No acute changes overnight - Exam Vitals: Temp Pulse Resp BP Pulse Ox 98.3 F 72 18 124/76 96 03/05/18 12:21 03/05/18 12:21 03/05/18 12:21 03/05/18 12:21 03/05/18 12:21 Exam: General: Alert and oriented. Skin:Normal color, no rash. Dressing to right foot dry and intact. Skin sloughing noted to right foot with circumferential redness. No drainage noted at this time. Redness also noted to inner right ankle and inner right knee. HEENT:Pupils equal, round and reactive. Cardiovascular:Normal S1 & S2, no rubs, murmurs or gallops. No JVD. Pulse regular. Lungs:Normal breath sounds, no wheezes or crackles. Abdomen:Soft, non-tender, no rigidity. Extremities:No tenderness, or clubbing. Edema to the right foot improving, LAVERNE wound due to dressing, dressing CDI, distal circulation intact Neurological:Normal cognition and motor skills. Pulses:Carotid and radial pulses normal +2. Rest of the physical exam is non contributory. - Assessment and Plan (1) Right foot infection Current Visit: Yes Status: Chronic Assessment and Plan: Right foot wound s/p I&D Dr. Christiansen POD #2 X-ray of right foot revealing possible osteomyelitis and right great toe stump and cellulitis Dressing intact, LAVERNE wound bed at this time;dressing changes per podiatry recommendations; activity recommendations per podiatry team Denies any discomfort at this time Podiatry and ID following, thank you Discussed strict blood glucose control as well as increasing protein intake to assist with wound healing Prior cultures revealed causative organism as C. koseri Surgical biopsy cultures preliminary gram-positive rods Continue treating with Levaquin as per infectious disease Patient does not appear toxic no SIRS criteria met Continue to monitor renal function and dose adjust antibiotics Activity per podiatry Follow-up with podiatry in clinic next week (2) Type 2 diabetes mellitus Current Visit: No Status: Chronic Assessment and Plan: Diabetic diet Hold home diabetic medications. ACHS accucheck. Increase to med corrective coverage (3) Decreased white blood cell count, unspecified Current Visit: No Status: Chronic Assessment and Plan: Chronic leukopenia, WBC 1.9 DVT Prophylaxis: Continue Heparin subcutaneous - Time Spent with Patient Total time spent is greater than 50% in coordination of care (as documented) at patient's floor/unit and/or counseling patient: less than 15 minutes Plan of Care Discussed with: patient Internal Medicine: Result - Labs CBC & Chem 7: 03/05/18 13:10 03/05/18 13:10 Consult Discharge Plan - Plan Referrals: NONE,PCP [Primary Care Provider] - (2) Type 2 diabetes mellitus Qualifiers: Diabetes mellitus intermediate school teacher insulin use: without retirement use Diabetes mellitus complication detail: with other skin complication (3) Decreased white blood cell count, unspecified Qualifiers: Leukopenia type: unspecified Qualified Code(s): D72.819 - Decreased white blood cell count, unspecified
[2018-03-05 13:32] LABS: Monocytes % 14.1 %
[2018-03-05 13:33] LABS: Eosinophils # 0.1 K/mcL (0.0-0.6); Eosinophils % 3.6 %; Hematocrit 39.6 % (35.3-44.9); Hemoglobin 12.5 g/dL (11.5-15.4); Lymphocytes # 0.9 K/mcL (0.6-4.6); Lymphocytes % 47.9 %; Mean Corpuscular HGB Conc 31.6 g/dL (31.6-35.5); Mean Corpuscular Hemoglobin 27.4 pg (28.0-33.3); Mean Corpuscular Volume 86.7 fL (83.0-100.0); Mean Platelet Volume 9.3 fL (9.4-12.4); Monocytes # 0.3 K/mcL (0.0-1.3); Neutrophils # 0.6 K/mcL (1.6-8.9); Platelet Count 249 K/mcL (140-400); Red Blood Count 4.57 M/mcL (3.82-4.97); Red Cell Distribution Width 15.3 % (11.5-14.5); Segmented Neutrophils % 33.4 %
[2018-03-05 13:49] LABS: BUN/Creatinine Ratio 22 (6-26); Blood Urea Nitrogen 15 mg/dL (6-20); Calcium 9.6 mg/dL (8.6-10.3); Carbon Dioxide 28 mEq/L (23-29); Chloride 101 mEq/L (98-107); Glucose 245 mg/dL (70-105); Osmolality,Calculated 291 (280-300); Potassium 4.6 mEq/L (3.5-5.1); Sodium 136 mEq/L (136-145); eGFR For Non-African Americans > 60 (> 60)
[2018-03-05 14:36] LABS: Platelet Estimate Normal (Normal)
[2018-03-05] MEDS ORDERED: Insulin LISPRO 300 UNITS/3 ML VIAL SQ SCH (21:00)
[2018-03-06 05:11] LABS: Basophils % 1.4 %; Eosinophils # 0.1 K/mcL (0.0-0.6); Eosinophils % 5.5 %; Hematocrit 37.5 % (35.3-44.9); Hemoglobin 11.9 g/dL (11.5-15.4); Immature Granulocytes % 0.5 % (0-4); Lymphocytes % 57.1 %; Mean Corpuscular HGB Conc 31.7 g/dL (31.6-35.5); Mean Corpuscular Hemoglobin 27.3 pg (28.0-33.3); Mean Platelet Volume 9.6 fL (9.4-12.4); Monocytes # 0.3 K/mcL (0.0-1.3); Monocytes % 14.3 %; Neutrophils # 0.5 K/mcL (1.6-8.9); Platelet Count 226 K/mcL (140-400); Red Blood Count 4.36 M/mcL (3.82-4.97); Red Cell Distribution Width 15.2 % (11.5-14.5); Segmented Neutrophils % 21.2 %
[2018-03-06 05:15] LABS: Lymphocytes # 1.3 K/mcL (0.6-4.6)
[2018-03-06 05:33] LABS: BUN/Creatinine Ratio 28 (6-26); Blood Urea Nitrogen 16 mg/dL (6-20); Calcium 9.4 mg/dL (8.6-10.3); Carbon Dioxide 27 mEq/L (23-29); Chloride 101 mEq/L (98-107); Glucose 262 mg/dL (70-105); Osmolality,Calculated 294 (280-300); Potassium 4.4 mEq/L (3.5-5.1); Sodium 137 mEq/L (136-145); eGFR For Non-African Americans > 60 (> 60)
[2018-03-06] MEDS: *HR* Heparin 5,000 UNIT/ML VIAL SQ SCH ×2 (05:36→16:42)
[2018-03-06 06:11] LABS: Platelet Estimate Normal (Normal)
[2018-03-06] MEDS: Insulin LISPRO 300 UNITS/3 ML VIAL SQ SCH ×4 (07:48→21:14)
[2018-03-06] MEDS: BuPROPion XL (24 HR) 150 MG TABLET PO SCH ×2 (07:48→16:41)
[2018-03-06] MEDS: Gabapentin 100 MG CAPSULE PO SCH ×3 (07:48→21:14)
[2018-03-06] MEDS: Levofloxacin 750 MG/150 ML 750 MG/150 ML BAG IVPB SCH (07:49)
--- NOTE | 2018-03-06 13:08 | Internal Med Progress Note ---
Hospitalist Progress Note - Encounter Date of Encounter: 03/06/18 Time of Encounter: 13:04 - Subjective Interval History: Seen and examined at bedside today. S/P I&D and debridement of right foot wound POD#3. No acute changes overnight - Exam Vitals: Temp Pulse Resp BP Pulse Ox 97.4 F L 82 17 124/87 93 03/06/18 11:45 03/06/18 11:45 03/06/18 11:45 03/06/18 11:45 03/06/18 07:10 Exam: General: Alert and oriented. Skin:Normal color, no rash. Dressing to right foot dry and intact. Skin sloughing noted to right foot with circumferential redness. No drainage noted at this time. Redness also noted to inner right ankle and inner right knee. HEENT:Pupils equal, round and reactive. Cardiovascular:Normal S1 & S2, no rubs, murmurs or gallops. No JVD. Pulse regular. Lungs:Normal breath sounds, no wheezes or crackles. Abdomen:Soft, non-tender, no rigidity. Extremities:No tenderness, or clubbing. Edema to the right foot improving, LAVERNE wound due to dressing, dressing CDI, Neurological:Normal cognition and motor skills. Pulses:Carotid and radial pulses normal +2. Rest of the physical exam is non contributory. - Assessment and Plan (1) Right foot infection Current Visit: Yes Status: Chronic Assessment and Plan: Right foot wound s/p I&D Dr. Christiansen POD #2 X-ray of right foot revealing possible osteomyelitis and right great toe stump and cellulitis Dressing intact, LAVERNE wound bed at this time;dressing changes per podiatry recommendations; activity recommendations per podiatry team Denies any discomfort at this time Podiatry and ID following, thank you Discussed strict blood glucose control as well as increasing protein intake to assist with wound healing Prior cultures revealed causative organism as C. koseri Surgical biopsy cultures preliminary gram-positive rods Continue treating with Levaquin as per infectious disease Patient does not appear toxic no SIRS criteria met Continue to monitor renal function and dose adjust antibiotics Activity per podiatry Follow-up with podiatry in clinic next week 03/06--Preliminary wound cultures with Enterococcus species; pending final report. Adding Vancomycin to ABX regimen. Clinically, she appears nontoxic and stable. She is hemodynamically stable and afebrile, not meeting SIRS criteria. Continue Levaquin. Defer to infectious disease for ABX adjustments. (2) Type 2 diabetes mellitus Current Visit: No Status: Chronic Assessment and Plan: Diabetic diet Hold home diabetic medications. blood glucose remains elevated ACHS accucheck. Increase to High corrective coverage (3) Decreased white blood cell count, unspecified Current Visit: No Status: Chronic Assessment and Plan: Chronic leukopenia, etilogy unclear. She has declined Hem/Onc referral. WBC 2.2. Monitor daily DVT Prophylaxis: Continue Heparin subcutaneous - Time Spent with Patient Total time spent is greater than 50% in coordination of care (as documented) at patient's floor/unit and/or counseling patient: less than 15 minutes Plan of Care Discussed with: patient Internal Medicine: Result - Labs CBC & Chem 7: 03/06/18 04:49 03/06/18 04:49 Labs: Short CBC 03/05/18 03/06/18 Range/Units 13:10 04:49 WBC 1.9 L 2.2 L (4.3-11.1) K/mcL Hgb 12.5 11.9 (11.5-15.4) g/dL Hct 39.6 37.5 (35.3-44.9) % Plt Count 249 226 (140-400) K/mcL Neutrophils # 0.6 L 0.5 L (1.6-8.9) K/mcL BMP 03/05/18 03/06/18 13:10 04:49 Sodium 136 137 Potassium 4.6 4.4 Chloride 101 101 Carbon Dioxide 28 27 BUN 15 16 Creatinine 0.67 0.58 L Glucose 245 H 262 H Calcium 9.6 9.4 Consult Discharge Plan - Plan Referrals: NONE,PCP [Primary Care Provider] - (2) Type 2 diabetes mellitus Qualifiers: Diabetes mellitus long wall mining machine helper insulin use: without long wall mining machine helper use Diabetes mellitus complication detail: with other skin complication (3) Decreased white blood cell count, unspecified Qualifiers: Leukopenia type: unspecified Qualified Code(s): D72.819 - Decreased white blood cell count, unspecified
[2018-03-07 05:18] LABS: Basophils % 1.4 %; Eosinophils # 0.1 K/mcL (0.0-0.6); Eosinophils % 5.5 %; Hematocrit 36.7 % (35.3-44.9); Hemoglobin 11.6 g/dL (11.5-15.4); Immature Granulocytes % 0.5 % (0-4); Lymphocytes # 1.2 K/mcL (0.6-4.6); Lymphocytes % 54.1 %; Mean Corpuscular HGB Conc 31.6 g/dL (31.6-35.5); Mean Corpuscular Hemoglobin 27.1 pg (28.0-33.3); Mean Corpuscular Volume 85.7 fL (83.0-100.0); Mean Platelet Volume 9.2 fL (9.4-12.4); Monocytes # 0.3 K/mcL (0.0-1.3); Monocytes % 13.3 %; Neutrophils # 0.6 K/mcL (1.6-8.9); Platelet Count 233 K/mcL (140-400); Red Blood Count 4.28 M/mcL (3.82-4.97); Red Cell Distribution Width 15.4 % (11.5-14.5); Segmented Neutrophils % 25.2 %
[2018-03-07 05:41] LABS: BUN/Creatinine Ratio 31 (6-26); Blood Urea Nitrogen 20 mg/dL (6-20); Calcium 9.3 mg/dL (8.6-10.3); Carbon Dioxide 26 mEq/L (23-29); Chloride 100 mEq/L (98-107); Glucose 285 mg/dL (70-105); Osmolality,Calculated 291 (280-300); Potassium 4.1 mEq/L (3.5-5.1); Sodium 134 mEq/L (136-145); eGFR For Non-African Americans > 60 (> 60)
[2018-03-07 06:09] LABS: Platelet Estimate Normal (Normal); Reactive Lymphocytes Present (Not Present)
[2018-03-07] MEDS: BuPROPion XL (24 HR) 150 MG TABLET PO SCH ×2 (08:36→17:52)
[2018-03-07] MEDS: Insulin LISPRO 300 UNITS/3 ML VIAL SQ SCH ×4 (08:37→20:42)
[2018-03-07] MEDS: Levofloxacin 750 MG/150 ML 750 MG/150 ML BAG IVPB SCH (08:37)
[2018-03-07] MEDS: Gabapentin 100 MG CAPSULE PO SCH ×3 (08:37→20:39)
[2018-03-07] MEDS: *HR* Heparin 5,000 UNIT/ML VIAL SQ SCH ×2 (08:37→17:52)
--- NOTE | 2018-03-07 10:56 | Internal Med Progress Note ---
Hospitalist Progress Note - Encounter Date of Encounter: 03/07/18 Time of Encounter: 10:51 - Subjective Interval History: Seen and examined at bedside today. S/P I&D and debridement of right foot wound POD#4. No acute changes overnight - Exam Vitals: Temp Pulse Resp BP Pulse Ox 97.3 F L 79 18 133/75 95 03/07/18 07:28 03/07/18 07:28 03/07/18 07:28 03/07/18 07:28 03/07/18 07:28 Exam: General: Alert and oriented. Skin:Normal color, no rash. Dressing to right foot dry and intact. Skin sloughing noted to right foot with circumferential redness. No drainage noted at this time. Redness also noted to inner right ankle and inner right knee. HEENT:Pupils equal, round and reactive. Cardiovascular:Normal S1 & S2, no rubs, murmurs or gallops. No JVD. Pulse regular. Lungs:Normal breath sounds, no wheezes or crackles. Abdomen:Soft, non-tender, no rigidity. Extremities:No tenderness, or clubbing. Edema to the right foot and RLE improving, LAVERNE wound due to dressing, dressing CDI, Neurological:Normal cognition and motor skills. Pulses:Carotid and radial pulses normal +2, posterior tibial pulses palpable 2+ bilaterally Rest of the physical exam is non contributory. - Assessment and Plan (1) Right foot infection Current Visit: Yes Status: Chronic Assessment and Plan: Right foot wound s/p I&D Dr. Christiansen POD #2 X-ray of right foot revealing possible osteomyelitis and right great toe stump and cellulitis Dressing intact, LAVERNE wound bed at this time;dressing changes per podiatry recommendations; activity recommendations per podiatry team Denies any discomfort at this time Podiatry and ID following, thank you Discussed strict blood glucose control as well as increasing protein intake to assist with wound healing Prior cultures revealed causative organism as C. koseri Surgical biopsy cultures preliminary gram-positive rods Continue treating with Levaquin as per infectious disease Patient does not appear toxic no SIRS criteria met Continue to monitor renal function and dose adjust antibiotics Activity per podiatry Follow-up with podiatry in clinic next week 03/07--wound cultures with preliminary enterococcus species, final results pending. Swelling to right lower extremity improving, intact distal circulation to palpation. Clinic with, patient remained stable and is nontoxic appearing, leukopenia is the only SIRS criteria. She remains afebrile. Infectious disease to see in consultation; defer to infectious disease team for antibiotics adjustments (2) Type 2 diabetes mellitus Current Visit: No Status: Chronic Assessment and Plan: Diabetic diet Hold home diabetic medications. blood glucose remains elevated today ACHS accucheck. Increase to High corrective coverage Add a basal coverage at low dose 14 units SQ HS (3) Decreased white blood cell count, unspecified Current Visit: No Status: Chronic Assessment and Plan: Chronic leukopenia, etilogy unclear. She has declined Hem/Onc referral. WBC 2.2. Monitor daily DVT Prophylaxis: Heparin subcutaneous - Time Spent with Patient Total time spent is greater than 50% in coordination of care (as documented) at patient's floor/unit and/or counseling patient: less than 15 minutes Plan of Care Discussed with: patient Internal Medicine: Result - Labs CBC & Chem 7: 03/07/18 04:46 03/07/18 04:46 Labs: Short CBC 03/07/18 Range/Units 04:46 WBC 2.2 L (4.3-11.1) K/mcL Hgb 11.6 (11.5-15.4) g/dL Hct 36.7 (35.3-44.9) % Plt Count 233 (140-400) K/mcL Neutrophils # 0.6 L (1.6-8.9) K/mcL BMP 03/07/18 04:46 Sodium 134 L Potassium 4.1 Chloride 100 Carbon Dioxide 26 BUN 20 Creatinine 0.65 Glucose 285 H Calcium 9.3 Consult Discharge Plan - Plan Referrals: NONE,PCP [Primary Care Provider] - (2) Type 2 diabetes mellitus Qualifiers: Diabetes mellitus correction insulin use: without terminal block assembler use Diabetes mellitus complication detail: with other skin complication (3) Decreased white blood cell count, unspecified Qualifiers: Leukopenia type: unspecified Qualified Code(s): D72.819 - Decreased white blood cell count, unspecified
--- NOTE | 2018-03-07 13:00 | Infectious Disease Progress No ---
Date of Encounter: 03/07/18 Time of Encounter: 12:57 - Assessment and Plan (1) Right foot infection Current Visit: Yes Status: Chronic Location: Right foot. Causative organism: C. koseri based on previous wound culture and Enterococcus based on intra-op tissue cultures. Improved with PO Levaquin and Bactrim, but not completely resolved. Likely secondary to non-healing wound of the right foot. X-ray of the right foot showed possible osteomyelitis of the right great toe stump and cellulitis. Podiatry consulted. Status post I & D with debridement of the right foot by Dr. Christiansen. Intra-op cultures are as above. Wound care and activity restrictions per the Podiatry team. Check ESR and CRP. --> 72 and 76, respectively. No SIRS criteria and the patient does not appear toxic. The patient developed a rash with infusion of Levaquin this morning, but not sure that it is related to the Levaquin. We will have the nurse re-start the Levaquin and monitor closely. Continue Vancomycin IV. Pharmacy to dose. Goal trough ~15. Duration of treatment depends on the clinical picture, but likely 4-6 weeks. Monitor renal function and dose-adjust antibiotics. (2) Cellulitis Current Visit: Yes Status: Acute Location: RLE. Causative organism: Likely C. koseri. Likely secondary to right foot non-healing wound. Improved on PO antibiotics, but still has area of erythema behind the knee. Consider venous doppler study to rule out DVT. Continue antibiotics as above. Qualifiers: Site of cellulitis: extremity Site of cellulitis of extremity: lower extremity Laterality: right Qualified Code(s): L03.115 - Cellulitis of right lower limb (3) Foot ulcer Current Visit: No Status: Acute Location: Medial aspect of right foot. Likely secondary to non-healing surgical wound. Podiatry consulted and following. Status post I & D 03/03/18. Wound care and activity restrictions per the Podiatry team. 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 (4) Hypertension Current Visit: No Status: Chronic Qualifiers: Hypertension type: essential hypertension Qualified Code(s): I10 - Essential (primary) hypertension (5) Depression Current Visit: No Status: Chronic Qualifiers: Depression Type: unspecified Qualified Code(s): F32.9 - Major depressive disorder, single episode, unspecified (6) Hypothyroidism Current Visit: No Status: Chronic Qualifiers: Hypothyroidism type: unspecified Qualified Code(s): E03.9 - Hypothyroidism , unspecified (7) Nonhealing surgical wound Current Visit: Yes Status: Acute Qualifiers: Encounter type: subsequent encounter Qualified Code(s): T81.89XD - Other complications of procedures, not elsewhere classified, subsequent encounter (8) Leukopenia Current Visit: Yes Status: Chronic Patient is chronically leukopenic. Etiology unclear. ANC 550 Patient reports workup 20 years ago and has declined Hem/Onc referral. Might be contributing to the patient's delayed wound healing. Continue to trend. Consider Hem/Onc evaluation while inpatient if the patient is agreeable. Qualifiers: Leukopenia type: unspecified Qualified Code(s): D72.819 - Decreased white blood cell count, unspecified (9) Diabetes mellitus Current Visit: No Status: Chronic Recommend aggressive glucose monitorevent re-infection. Management per the primary team. Qualifiers: Diabetes mellitus type: type 2 Diabetes mellitus longterm insulin use: without sales account executive use Diabetes mellitus complication status: with skin complications Diabetes mellitus complication detail: with foot ulcer Qualified Code(s): E11.621 - Type 2 diabetes mellitus with foot ulcer; L97.509 - Non-pressure chronic ulcer of other part of unspecified foot with unspecified severity (10) Rash Current Visit: Yes Status: Acute Etiology: Unclear. Location: Anterior chest wall under the telemetry pads and LUE. Clinically, not consistent with drug rash. Appears improved. Continue to monitor. Management per the primary team. - Subjective Interval history: Patient seen and examined. No acute events noted overnight. Status post I & D and debridement of the right foot 03/03/[address] Christiansen. Patient states overall she feels well. Denies fevers, chills, or rigors. Denies chest pain, shortness of breath, or cough. Denies nausea, vomiting, or diarrhea. Denies abdominal pain , urinary complaints, or appetite changes. Denies pain at the surgical site. Denies oral thrush. Reports skin welts under the telemetry pads this morning and states she developed some welts to the LUE after the Levaquin was started this morning. She reports the welts have resolved. Infect Dis PN-Objective Data - Labs CBC & Chem 7: 03/07/18 04:46 03/07/18 04:46 Labs: Laboratory Results - last 24 hr 03/06/18 03/06/18 03/06/18 07:14 11:43 16:32 WBC RBC Hgb Hct MCV MCH MCHC RDW Plt Count MPV Immature Gran % Seg Neutrophils % Lymphocytes % Monocytes % Eosinophils % Basophils % Neutrophils # Lymphocytes # Monocytes # Eosinophils # Basophils # Reactive Lymphocytes Platelet Estimate Sodium Potassium Chloride Carbon Dioxide BUN Creatinine Est GFR ( Amer) Est GFR (Non-Af Amer) BUN/Creatinine Ratio Glucose POC Glucose 257 H 293 H 207 H Calculated Osmolality Calcium 03/06/18 03/07/18 03/07/18 20:09 04:46 04:46 WBC 2.2 L RBC 4.28 Hgb 11.6 Hct 36.7 MCV 85.7 MCH 27.1 L MCHC 31.6 RDW 15.4 H Plt Count 233 MPV 9.2 L Immature Gran % 0.5 Seg Neutrophils % 25.2 Lymphocytes % 54.1 Monocytes % 13.3 Eosinophils % 5.5 Basophils % 1.4 Neutrophils # 0.6 L Lymphocytes # 1.2 Monocytes # 0.3 Eosinophils # 0.1 Basophils # 0.0 Reactive Lymphocytes Present A Platelet Estimate Normal Sodium 134 L Potassium 4.1 Chloride 100 Carbon Dioxide 26 BUN 20 Creatinine 0.65 Est GFR ( Amer) > 60 Est GFR (Non-Af Amer) > 60 BUN/Creatinine Ratio 31 H Glucose 285 H POC Glucose 257 H Calculated Osmolality 291 Calcium 9.3 Cultures: Cultures 03/03/18 14:15 Surgical Biopsy Culture - Final Right Foot Enterococcus species Exam - Constitutional Vitals: Temp Pulse Resp BP Pulse Ox 97.8 F 82 17 119/71 94 03/07/18 11:24 03/07/18 11:24 03/07/18 11:24 03/07/18 11:24 03/07/18 11:24 General appearance: cooperative, no acute distress, obese - Head Head exam: Present: atraumatic, normal inspection, normocephalic - Eye Eye exam: Present: EOMI, normal appearance, PERRL Pupils: Present: normal accommodation - ENT ENT exam: Present: mucous membranes moist - Neck Neck exam: Present: normal inspection - Respiratory Respiratory exam: Present: CTAB. Absent: rales, respiratory distress, rhonchi, wheezes - Cardiovascular Cardiovascular exam: Present: RRR, +S1, +S2 - GI/Abdominal GI/Abdominal exam: Present: distended (obese), normal bowel sounds, soft. Absent: tenderness - Extremities Exam Extremities exam: Absent: normal inspection (Surgical site noted to the right foot overlying MT #1. Erythema improved. Adaptic with PRP overlying the surgical site limits visibility, but no purulence, foul odor, tenderness, or warmth noted.) - Neurological Exam Neurological exam: Present: alert, oriented X3, no focal deficits - Psychiatric Psychiatric exam: Present: normal affect, normal mood - Skin Skin exam: Present: dry, intact, normal color, warm Consult Discharge Plan - Plan Referrals: NONE,PCP [Primary Care Provider] - - Attending Attestation I examined this patient and my medical decision-making was reviewed with the Resident Physician. I agree with the documented findings, disposition and treatment plan as described except to the extent set forth below.
--- NOTE | 2018-03-07 16:54 | Podiatry Progress Note ---
Date of Encounter: 03/07/18 Time of Encounter: 12:00 - Assessment and Plan (1) Cellulitis Current Visit: Yes Status: Acute ID on board and appreciated Spoke with Margarita Mir NP at bedside, wishes to continue levaquin at this time and monitor for reaction Have added vancomycin related to enterococcus species found in intraop cultures Qualifiers: Site of cellulitis: extremity Site of cellulitis of extremity: lower extremity Laterality: right Qualified Code(s): L03.115 - Cellulitis of right lower limb (2) Nonhealing surgical wound Current Visit: Yes Status: Acute Chronic non healing surgical wound of the right foot with acute cellulitis which failed outpatient treatment PLAN: day 4 post op wound debridement Dressing removed at bedside, left bottom later of adaptic as it is infected with PRP and placed over graft jacket New adaptic laid over old- as advised per New bulk dressing applied Improvement in appearance of cellultis of foot Patient denies any pain No drainage noted. Patient to keep elevated at all times Please apply post operative sock over dressing and reapply MARTA Needs compression to foot to prevent dependent edema Has post operative shoe at bedside, needs ortho wedge shoe prior to discharge Will need to follow up in wound care clinic with - this wednesday if discharged today or tomorrow or next wednesday if discharged wednesday or after ID on board for antibiotic monitoring and titration and appreciated. 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 Some osseous irregularity of the distal stump raise the possibility for osteomyelitis. Marked soft tissue swelling along the medial and dorsal aspect of the foot with associated wound suspicious for cellulitis. D/ / Natasha Villasenor MD / Natasha Villasenor MD Interpreting Provider: Natasha Villasenor MD Qualifiers: Encounter type: subsequent encounter Qualified Code(s): T81.89XD - Other complications of procedures, not elsewhere classified, subsequent encounter Subjective Principal diagnosis: foot wound Interval history: Patient is progressing well on postop day 4 status post right foot wound debridement. Patient has been nonweightbearing and foot is elevated. Dressing is intact to the right lower extremity. She reports rash after being administered levaquin this AM. She denies pain at this time. She denies nausea , vomiting, fever, chills. Objective - Vital Signs Vital Signs: Vital Signs Temp Pulse Resp BP Pulse Ox 03/07/18 15:30 98.0 F 85 17 124/78 95 03/07/18 11:24 97.8 F 82 17 119/71 94 03/07/18 07:28 97.3 F L 79 18 133/75 95 03/07/18 02:30 98.2 F 79 16 131/74 95 03/06/18 22:52 98.7 F 86 16 117/70 93 03/06/18 18:35 98.3 F 85 16 124/76 94 Intake and Output 03/07/18 03/07/18 03/07/18 07:59 15:59 23:59 Intake Total 250 / 250 150 / 150 Balance 250 / 250 150 / 150 Intake: IV Fluids 250 / 250 150 / 150 Levaquin Premix 750mg/150 mL 150 / 150 750 mg In 150 ml @ 100 mls/hr IVPB DAILY [facility] Rx#:[id number] Vancocin 1,250 MG In 0.9 % 250 / 250 Sodium Chloride 250 ML @ 166.67 mls/hr IVPB Q12H [facility] Rx#: [id number] Other: # Voids 1 Weight 98.194 kg Blood Glucose* 269 378 310 Patient Weight 03/07/18 23:59 Weight 98.194 kg - Exam Exam: Awake alert and oriented Pulses palpable DP/PT Warm toes to tibia Cap refil <3 seconds No calf pain with manual compression Minimal sensation to light or moderate touch Post op surgical wound noted to medial aspect right foot, leaving adaptic in place, unable to visualize wound or wound bed- There is decreased edema and erythema along dorsal aspect of foot as compared to pre op assessment No drainage, scant dry blood noted to adaptic no odor. - Lab Result Diagrams: 03/08/18 01:05 03/08/18 01:05 Labs: Abnormal lab results WBC 2.2 K/mcL (4.3-11.1) L 03/07/18 04:46 MCH 27.1 pg (28.0-33.3) L 03/07/18 04:46 RDW 15.4 % (11.5-14.5) H 03/07/18 04:46 MPV 9.2 fL (9.4-12.4) L 03/07/18 04:46 Band Neutrophils % 8.0 % (0-4) H 03/03/18 06:08 Neutrophils # 0.6 K/mcL (1.6-8.9) L 03/07/18 04:46 Reactive Lymphocytes Present (Not Present) A 03/07/18 04:46 ESR 72 mm/hr (0-15) H 03/02/18 15:10 Sodium 134 mEq/L (136-145) L 03/07/18 04:46 BUN/Creatinine Ratio 31 (6-26) H 03/07/18 04:46 Glucose 285 mg/dL (70-105) H 03/07/18 04:46 POC Glucose 257 mg/dL (70-99) H 03/06/18 20:09 C-Reactive Protein 76 mg/L (Less than 10) H 03/02/18 15:10 Microbiology, Last 48 Hours 03/03/18 14:15 Surgical Biopsy Culture - Final Right Foot Enterococcus species Consult Discharge Plan - Plan Referrals: Margarita Mir CNP [Advanced Practice Nurse] - 03/16/18 11:00 am Gavino Wilburn [Non-Partnered Physician] - 03/16/18 8:00 am (In Wound Clinic) Prescriptions: Insulin LISPRO [HumaLOG] 5 units SQ TIDAC #30 vial Levofloxacin 750 MG/150 ML [Levaquin Premix 750mg/150 mL] 750 mg IVPB DAILY #14 bag Vancomycin [Vancocin] 1,500 mg IV Q12H 14 Days #28 vial
[2018-03-07] MEDS: Insulin DETEMIR 100 UNIT/ML X5UNITS SQ SCH (20:41)
[2018-03-08 01:35] LABS: Basophils % 0.9 %; Eosinophils # 0.1 K/mcL (0.0-0.6); Hematocrit 39.2 % (35.3-44.9); Hemoglobin 12.5 g/dL (11.5-15.4); Immature Granulocytes % 0.4 % (0-4); Lymphocytes # 1.1 K/mcL (0.6-4.6); Lymphocytes % 49.8 %; Mean Corpuscular HGB Conc 31.9 g/dL (31.6-35.5); Mean Corpuscular Hemoglobin 27.4 pg (28.0-33.3); Mean Platelet Volume 9.2 fL (9.4-12.4); Monocytes # 0.3 K/mcL (0.0-1.3); Neutrophils # 0.7 K/mcL (1.6-8.9); Nucleated Red Blood Cells 0.9 /100 WBC (0); Platelet Count 266 K/mcL (140-400); Red Blood Count 4.56 M/mcL (3.82-4.97); Red Cell Distribution Width 15.6 % (11.5-14.5); Segmented Neutrophils % 31.9 %
[2018-03-08 01:52] LABS: BUN/Creatinine Ratio 27 (6-26); Blood Urea Nitrogen 18 mg/dL (6-20); Calcium 9.6 mg/dL (8.6-10.3); Carbon Dioxide 28 mEq/L (23-29); Chloride 97 mEq/L (98-107); Glucose 321 mg/dL (70-105); Osmolality,Calculated 290 (280-300); Potassium 4.6 mEq/L (3.5-5.1); Sodium 133 mEq/L (136-145); eGFR For Non-African Americans > 60 (> 60)
[2018-03-08] MEDS: *HR* Heparin 5,000 UNIT/ML VIAL SQ SCH ×2 (06:19→18:08)
[2018-03-08] MEDS: Levofloxacin 750 MG/150 ML 750 MG/150 ML BAG IVPB SCH (08:30)
[2018-03-08] MEDS ORDERED: Aminoglycoside Consult 1 EACH MC ONE (08:44)
[2018-03-08] MEDS: Gabapentin 100 MG CAPSULE PO SCH ×3 (09:12→21:06)
[2018-03-08] MEDS: BuPROPion XL (24 HR) 150 MG TABLET PO SCH ×2 (09:12→18:08)
[2018-03-08] MEDS: Insulin LISPRO 300 UNITS/3 ML VIAL SQ SCH ×4 (09:13→21:08)
--- NOTE | 2018-03-08 10:44 | Infectious Disease Progress No ---
Date of Encounter: 03/08/18 Time of Encounter: 10:39 - Assessment and Plan (1) Right foot infection Current Visit: Yes Status: Chronic Location: Right foot. Causative organism: C. koseri based on previous wound culture and Enterococcus based on intra-op tissue cultures. Improved with PO Levaquin and Bactrim, but not completely resolved. Likely secondary to non-healing wound of the right foot. X-ray of the right foot showed possible osteomyelitis of the right great toe stump and cellulitis. Podiatry consulted. Status post I & D with debridement of the right foot by Dr. Christiansen. Intra-op cultures are as above. Wound care and activity restrictions per the Podiatry team. Check ESR and CRP. --> 72 and 76, respectively. No SIRS criteria and the patient does not appear toxic. Tolerated Levaquin without issue yesterday and this morning. Continue Levaquin 750mg IV daily. Continue Vancomycin IV. Pharmacy to dose. Goal trough ~15. Duration of treatment depends on the clinical picture, but likely 2-6 weeks. We will follow how the patient does clinically and her inflammatory markers and base duration of treatment on that. Monitor renal function and dose-adjust antibiotics. Consult VAT for PICC line placement. Nurse case reviewer on board to assist with home infusion set up. Patient does not want home health and will coming to the wound clinic every week to see Dr. Christiansen. If they cannot perform the PICC dressing change in the wound clinic, we will set the patient up for nurse visits in my office to have them performed. Will need weekly CBC, BUN/Cr, ESR, CRP, and Vanc trough for duration of treatment. Patient can have these drawn at the outpatient lab on the days she comes to the wound clinic. Follow up with ID 03/16/18 at 1100. (2) Cellulitis Current Visit: Yes Status: Acute Location: RLE. Causative organism: Likely C. koseri. Likely secondary to right foot non-healing wound. Continue antibiotics as above. Qualifiers: Site of cellulitis: extremity Site of cellulitis of extremity: lower extremity Laterality: right Qualified Code(s): L03.115 - Cellulitis of right lower limb (3) Foot ulcer Current Visit: No Status: Acute Location: Medial aspect of right foot. Likely secondary to non-healing surgical wound. Podiatry consulted and following. Status post I & D 03/03/18. Wound care and activity restrictions per the Podiatry team. 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 (4) Hypertension Current Visit: No Status: Chronic Qualifiers: Hypertension type: essential hypertension Qualified Code(s): I10 - Essential (primary) hypertension (5) Depression Current Visit: No Status: Chronic Qualifiers: Depression Type: unspecified Qualified Code(s): F32.9 - Major depressive disorder, single episode, unspecified (6) Hypothyroidism Current Visit: No Status: Chronic Qualifiers: Hypothyroidism type: unspecified Qualified Code(s): E03.9 - Hypothyroidism , unspecified (7) Nonhealing surgical wound Current Visit: Yes Status: Acute Qualifiers: Encounter type: subsequent encounter Qualified Code(s): T81.89XD - Other complications of procedures, not elsewhere classified, subsequent encounter (8) Leukopenia Current Visit: Yes Status: Chronic Patient is chronically leukopenic. Etiology unclear. ANC 550 Patient reports workup 20 years ago and has declined Hem/Onc referral. Might be contributing to the patient's delayed wound healing. Continue to trend. Consider Hem/Onc evaluation while inpatient if the patient is agreeable. Qualifiers: Leukopenia type: unspecified Qualified Code(s): D72.819 - Decreased white blood cell count, unspecified (9) Diabetes mellitus Current Visit: No Status: Chronic Recommend aggressive glucose monitoring to prevent re-infection. Management per the primary team. Qualifiers: Diabetes mellitus type: type 2 Diabetes mellitus usp insulin use: without middle or intermediate school principal use Diabetes mellitus complication status: with skin complications Diabetes mellitus complication detail: with foot ulcer Qualified Code(s): E11.621 - Type 2 diabetes mellitus with foot ulcer; L97.509 - Non-pressure chronic ulcer of other part of unspecified foot with unspecified severity (10) Rash Current Visit: Yes Status: Acute Etiology: Unclear. Location: Anterior chest wall under the telemetry pads and LUE. Resolved. Continue to monitor. Management per the primary team. - Subjective Interval history: Patient seen and examined. No acute events noted overnight. Status post I & D and debridement of the right foot 03/03/[address] Christiansen. Patient states overall she feels well. Denies fevers, chills, or rigors. Denies chest pain, shortness of breath, or cough. Denies nausea, vomiting, or diarrhea. Denies abdominal pain , urinary complaints, or appetite changes. Denies pain at the surgical site. Denies oral thrush. States rash has resolved and denies any recurrence. Infect Dis PN-Objective Data - Labs CBC & Chem 7: 03/08/18 01:05 03/08/18 01:05 Labs: Laboratory Results - last 24 hr 03/07/18 03/07/18 03/07/18 07:27 11:23 16:25 WBC RBC Hgb Hct MCV MCH MCHC RDW Plt Count MPV Immature Gran % Seg Neutrophils % Lymphocytes % Monocytes % Eosinophils % Basophils % Neutrophils # Lymphocytes # Monocytes # Eosinophils # Basophils # Nucleated RBCs/100 WBC Sodium Potassium Chloride Carbon Dioxide BUN Creatinine Est GFR ( Amer) Est GFR (Non-Af Amer) BUN/Creatinine Ratio Glucose POC Glucose 269 H 378 H 310 H Calculated Osmolality Calcium Vancomycin Trough 03/08/18 03/08/18 03/08/18 01:05 01:05 01:05 WBC 2.2 L RBC 4.56 Hgb 12.5 Hct 39.2 MCV 86.0 MCH 27.4 L MCHC 31.9 RDW 15.6 H Plt Count 266 MPV 9.2 L Immature Gran % 0.4 Seg Neutrophils % 31.9 Lymphocytes % 49.8 Monocytes % 13.0 Eosinophils % 4.0 Basophils % 0.9 Neutrophils # 0.7 L Lymphocytes # 1.1 Monocytes # 0.3 Eosinophils # 0.1 Basophils # 0.0 Nucleated RBCs/100 WBC 0.9 H Sodium 133 L Potassium 4.6 Chloride 97 L Carbon Dioxide 28 BUN 18 Creatinine 0.67 Est GFR ( Amer) > 60 Est GFR (Non-Af Amer) > 60 BUN/Creatinine Ratio 27 H Glucose 321 H POC Glucose Calculated Osmolality 290 Calcium 9.6 Vancomycin Trough 9 Cultures: Cultures 03/03/18 14:15 Anaerobic Culture - Final Right Foot No anaerobes were recovered. 03/03/18 14:15 Surgical Biopsy Culture - Final Right Foot Enterococcus species Exam - Constitutional Vitals: Temp Pulse Resp BP Pulse Ox 97.4 F L 70 16 115/72 94 03/08/18 06:30 03/08/18 06:30 03/08/18 06:30 03/08/18 06:30 03/08/18 06:30 General appearance: cooperative, no acute distress, obese - Head Head exam: Present: atraumatic, normal inspection, normocephalic - Eye Eye exam: Present: EOMI, normal appearance, PERRL Pupils: Present: normal accommodation - ENT ENT exam: Present: mucous membranes moist - Neck Neck exam: Present: normal inspection - Respiratory Respiratory exam: Present: CTAB. Absent: rales, respiratory distress, rhonchi, wheezes - Cardiovascular Cardiovascular exam: Present: RRR, +S1, +S2 - GI/Abdominal GI/Abdominal exam: Present: distended (obese), normal bowel sounds, soft. Absent: tenderness - Extremities Exam Extremities exam: Present: normal inspection. Absent: joint swelling, pedal edema, tenderness Additional comments: Right foot dressing C/D/I. - Neurological Exam Neurological exam: Present: alert, oriented X3, no focal deficits - Psychiatric Psychiatric exam: Present: normal affect, normal mood - Skin Skin exam: Present: dry, intact, normal color, warm Consult Discharge Plan - Plan Referrals: Gavino Wilburn [Non-Partnered Physician] - 03/16/18 8:00 am (In Wound Clinic) Hardik Caldera MD [Non-Partnered Physician] - Margarita Mir CNP [Advanced Practice Nurse] - 03/16/18 11:00 am Prescriptions: Levofloxacin 750 MG/150 ML [Levaquin Premix 750mg/150 mL] 750 mg IVPB DAILY #14 bag Vancomycin [Vancocin] 1,500 mg IV Q12H 14 Days #28 vial
--- NOTE | 2018-03-08 11:57 | Discharge Summary ---
- NOTES TO OUTPATIENT PROVIDER Notes to Outpatient Provider: PCP in 5 to 7 days. Podiatry at 8:00 am 2017 Orders not resulted at time of discharge: Pending orders 03/09/18 13:00 Vancomycin,Trough Timed Date of Encounter: 03/08/18 Time of Encounter: 11:53 - Discharge Diagnosis (1) Right foot infection Priority: Primary Status: Chronic Assessment and Plan: Right foot wound s/p I&D Dr. Christiansen POD #3 X-ray of right foot revealing possible osteomyelitis and right great toe stump and cellulitis Dressing intact, LAVERNE wound bed at this time;dressing changes per podiatry recommendations; activity recommendations per podiatry team Denies any discomfort at this time Podiatry and ID followed the patient during this admission Prior cultures revealed causative organism as C. koseri Surgical biopsy cultures preliminary gram-positive rods Levaquin 750 mg IV QD as per infectious disease Continue Vancomycin IV. Pharmacy to dose. Goal trough ~15. Patient does not appear toxic no SIRS criteria met Continue to monitor renal function and dose adjust antibiotics Activity per podiatry Follow-up with podiatry in clinic 03/09/2018 8:00am. 03/07--wound cultures with preliminary enterococcus species, final results showing sensitivity to Vancomycin. Duration likely 2 to 6 weeks. (2) Cellulitis Priority: Primary Status: Acute Assessment and Plan: Continue antibiotics out pt as prescribed by ID. Qualifiers: Site of cellulitis: extremity Site of cellulitis of extremity: lower extremity Laterality: right Qualified Code(s): L03.115 - Cellulitis of right lower limb (3) Type 2 diabetes mellitus Priority: Secondary Status: Chronic Assessment and Plan: Diabetic diet. On glyburide and metformin at home. Pt was on basal and SSI here and was increased to high coverage. Will likely DC on SSI and will need out pt follow up with PCP in 5 to 7 days. continue with [facility] accu-check. 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 She has declined Hem/Onc referral. WBC 2.2. Monitor out pt. Qualifiers: Leukopenia type: unspecified Qualified Code(s): D72.819 - Decreased white blood cell count, unspecified (5) Hypertension Priority: Secondary Status: Chronic Assessment and Plan: Lopressor Qualifiers: Hypertension type: essential hypertension Qualified Code(s): I10 - Essential (primary) hypertension Hospital course: Ms. Walker is a 57 year old female with past medical history significant for chronic right foot wound, type 2 diabetes, hypertension, hyperlipidemia, hypothyroidism, depression, and anxiety who presents from wound care clinic with Dr Christiansen who advised to come to ER. Patient had right great toe and partial metatarsal amputation [facility] 2017 following injury from a fall. Has been following with wound care and having antibiotic treatment since. Currently on 10 day course of Levaquin set to be completed tomorrow. Has been having wound care every Wednesday. States prior to starting this course of Levaquin she had redness across right foot and up right leg to her knee but it has since improved but not resolved completely. Also complains of a constant 3/ 10 tight pain around her right foot. Has decreased sensation in bilateral feet which is chronic for patient. Denies any chest pain, shortness of breath, abdominal pain, fever, chills, diarrhea, bowel or bladder changes. Dr Christiansen requested ER to admit patient and plans to take patient to OR tomorrow for debridement and wound cultures. Blood cultures completed while in ER. Dr Christiansen also requested consult be placed for Hematology and Infectious Disease, which ER has already completed. Patient discussed with Dr Murdock. Pt declined hematology consult. Discharge discussed with: patient - Time Spent with Patient Total time spent providing and/or coordinating discharge services: Greater than 30 minutes - Discharge Medications Prescriptions: Levofloxacin 750 MG/150 ML [Levaquin Premix 750mg/150 mL] 750 mg IVPB DAILY #14 bag Vancomycin [Vancocin] 1,500 mg IV Q12H 14 Days #28 vial Home Medications: Bupropion HCl [Wellbutrin Xl] 300 mg PO QAM 11/13/15 [History] Citalopram [CeleXA] 20 mg PO DAILY 11/13/15 [History] Empagliflozin/Linagliptin [Glyxambi 25 mg-5 mg Tablet] 1 tab PO DAILY 11/13/15 [ History] Gabapentin [Neurontin] 100 mg PO TID 11/13/15 [History] Levothyroxine [Synthroid] 100 mcg PO DAILY 11/13/15 [History] glyBURIDE [GlyBURIDE] 10 mg PO BID 11/13/15 [History] BuPROPion XL (24 HR) [Wellbutrin Xl] 150 mg PO QPM 07/09/16 [History] Metformin HCl [Glucophage] 1,000 mg PO BID 07/09/16 [History] clonazePAM [Klonopin] 0.5 mg PO BID PRN #30 tablet 07/10/16 [Rx] Metoprolol [Lopressor] 25 mg PO BID 03/02/18 [History] Rosuvastatin Calcium [Crestor] 10 mg PO DAILY 03/02/18 [History] levoFLOXacin [Levaquin] 500 mg PO DAILY 03/02/18 [History] Levofloxacin 750 MG/150 ML [Levaquin Premix 750mg/150 mL] 750 mg IVPB DAILY #14 bag 03/08/18 [Rx] Vancomycin [Vancocin] 1,500 mg IV Q12H 14 Days #28 vial 03/08/18 [Rx] Allergies/Adverse Reactions: 3 Allergy/AdvReac Type Severity Reaction Status Date / Time Penicillins [PCN] Allergy Rash Verified 03/02/18 09:24 Sulfa (Sulfonamide Allergy Rash Verified 03/02/18 09:24 Antibiotics) Date of admission: 03/02/18 17:19 Primary care physician: PCP NONE Consults: 03/08/18 10:11 Consult to Invasive Line Access Team [CONS] Routine Reason for Consult: home IV vancomycin Line Type: PICC Discharging clinician: Dalia Campbell Anticipated date of discharge: 03/08/18 - Constitutional Vitals: Temp Pulse Resp BP Pulse Ox 97.7 F 78 15 124/76 96 03/08/18 11:18 03/08/18 11:18 03/08/18 11:18 03/08/18 11:18 03/08/18 11:18 Exam: Exam: General: Alert and oriented. Skin:Normal color, no rash. Dressing to right foot dry and intact. No drainage noted at this time. Redness also noted to inner right ankle and inner right knee. HEENT:Pupils equal, round and reactive. Cardiovascular:Normal S1 & S2, no rubs, murmurs or gallops. No JVD. Pulse regular. Lungs:Normal breath sounds, no wheezes or crackles. Abdomen:Soft, non-tender, no rigidity. Extremities:No tenderness, or clubbing. Edema to the right foot and RLE improving, LAVERNE wound due to dressing, dressing CDI, Neurological:Normal cognition and motor skills. Pulses:Carotid and radial pulses normal +2, posterior tibial pulses palpable 2+ bilaterally Rest of the physical exam is non contributory. - Patient Status Disposition: Home, Self-Care Condition: Good Overall status at discharge: patient is progressing back to baseline - Discharge Instructions Follow Up With: Margarita Mir CNP [Advanced Practice Nurse] - 03/16/18 11:00 am Gavino Wilburn [Non-Partnered Physician] - 03/16/18 8:00 am (In Wound Clinic) Hardik Caldera MD [Non-Partnered Physician] - - Diet and Activity Activity: increase activity as tolerated Diet: diabetic diet
[2018-03-08 19:53] VITALS: BP 133/75
[2018-03-08] MEDS: Insulin DETEMIR 100 UNIT/ML X5UNITS SQ SCH (21:08)
[2018-03-09] MEDS: Levofloxacin 750 MG/150 ML 750 MG/150 ML BAG IVPB SCH (05:53)
[2018-03-09] MEDS: *HR* Heparin 5,000 UNIT/ML VIAL SQ SCH (05:57)
[2018-03-09] MEDS: BuPROPion XL (24 HR) 150 MG TABLET PO SCH (07:49)
[2018-03-09] MEDS: Gabapentin 100 MG CAPSULE PO SCH (07:49)
== END 2018-03-09 08:45 | disposition home or self-care (01) | DRG 623 ==
LOC: EMEROOARM 09:20 → 3BNU 09:20
PROVIDERS: ADMIT Internal Medicine; ATTEND Internal Medicine